=== PATIENT | female | born 1975 | race American Indian/Alaskan Native ===

== ENCOUNTER 2018-05-18 14:23 | Inpatient (IN) | payer BC, OTHER ==
[2018-05-18] MEDS ORDERED: NACL 0.9% 1000 ML IV ONE (14:33)
[2018-05-18] MEDS ORDERED: IBUPROFEN PO ONE (14:34)
--- NOTE | 2018-05-18 14:37 | Emergency Department Report ---
Blank Doc - Documentation Documentation: This is a 42-year-old female that presents with abscess to buttock area. Febrile with tachycardia in triage. Code sepsis initiated. This initial assessment/diagnostic orders/clinical plan/treatment(s) is/are subject to change based on patient's health status, clinical progression and re- assessment by fellow clinical providers in the ED. Further treatment and workup at subsequent clinical providers discretion. Patient/guardians urged not to elope from the ED as their condition may be serious if not clinically assessed and managed. Initial orders include: 1- Patient sent to MAIN for further evaluation and treatment 2- labs 3- Fluids 4- Motrin
[2018-05-18 15:05] LABS: Basophils # (Auto) 0.1 K/mm3 (0.0-0.1); Basophils % (Auto) 0.5 % (0.0-1.8); Eosinophils # (Auto) 0.1 K/mm3 (0.0-0.4); Eosinophils % (Auto) 0.6 % (0.0-4.3); Hematocrit 37.8 % (30.3-42.9); Hemoglobin 12.7 gm/dl (10.1-14.3); Mean Corpuscular HGB Conc 34 % (30-34); Mean Corpuscular Volume 94 fl (79-97); Monocytes # (Auto) 1.1 K/mm3 (0.0-0.8); Monocytes % (Auto) 6.8 % (0.0-7.3); Platelet Count 324 K/mm3 (140-440); Red Blood Count 4.03 M/mm3 (3.65-5.03)
[2018-05-18 15:35] LABS: Alanine Aminotransferase 17 units/L (7-56); Albumin 3.3 g/dL (3.9-5); BUN/Creatinine Ratio 13; Blood Urea Nitrogen 8 mg/dL (7-17); Hemolysis Index 2
[2018-05-18] MEDS ORDERED: DILAUDID IV ONE ×2 (16:02→19:17)
[2018-05-18] MEDS ORDERED: ZOFRAN IV ONE (16:02)
[2018-05-18] MEDS ORDERED: VANCOMYCIN 2,000 MG in NACL 0.9% 500 ML 500 ML IV ONE (16:06)
[2018-05-18] MEDS ORDERED: TYLENOL PO ONE (16:18)
--- NOTE | 2018-05-18 16:28 | Emergency Department Report ---
HPI - General Chief Complaint: Skin/Abscess/Foreign Body Time Seen by Provider: 05/18/18 14:32 - HPI HPI: Room 26 The patient is a 42-year-old female presenting with a chief complaint of right buttocks pain and menorrhagia. The patient states for the past week has noticed pain and swelling along the gluteal cleft of her right buttocks. The patient st ates she's had abscesses in the past but this is worse than previous episodes. Patient states last menstrual cycle ended approximately 2 months ago. The patient states she did not have any vaginal bleeding since then until approximately 5 days ago. Patient states she is having heavy vaginal bleeding going through approximately 8 pads per day. Patient complains of low back pain and lower abdominal cramping as well. Location: [See above] Duration: [See above] Quality: Pain Severity:12/18 Modifying factors: [see above] Context: [see above] Mode of transportation: [not driving] ED Past Medical Hx - Past Medical History Hx Hypertension: Yes Hx Diabetes: Yes Additional medical history: HPV - Surgical History Additional Surgical History: 14 years old given trachea, 3, 3 chest tubes, abdominal debridement - Family History Family history: no significant - Social History Smoking Status: Current Every Day Smoker Substance Use Type: None - Medications Home Medications: Home Medications Medication Instructions Recorded Confirmed Last Taken Type metFORMIN 500 mg PO BID 01/30/16 01/30/16 Unknown History ED Review of Systems ROS: Stated complaint: BOIL/BLEEDING Other details as noted in HPI Constitutional: fever Eyes: denies: eye pain ENT: denies: throat pain Respiratory: no symptoms reported Cardiovascular: denies: chest pain Endocrine: no symptoms reported Gastrointestinal: abdominal pain Genitourinary: abnormal menses Musculoskeletal: back pain Skin: lesions Neurological: denies: headache Physical Exam - Physical Exam Vital Signs: Vital Signs 05/18/18 05/18/18 14:28 15:15 Temperature 100.2 F H Pulse Rate 128 H 108 H Respiratory 20 16 Rate Blood Pressure 229/143 Blood Pressure 148/60 [Left] O2 Sat by Pulse 99 100 Oximetry Physical Exam: GENERAL: The patient is well-developed well-nourished female lying in the left lateral decubitus position not appearing to be in acute distress. [] HEENT: Normocephalic. Atraumatic. Extraocular motions are intact. Patient has moist mucous membranes. NECK: Supple. Trachea midline CHEST/LUNGS: Clear to auscultation. There is no respiratory distress noted. HEART/CARDIOVASCULAR: Regular. There is tachycardia. There is no gallop rub or murmur. ABDOMEN: Abdomen is soft, nontender. Patient has normal bowel sounds. There is no abdominal distention. SKIN: There is a large region of induration medial aspect of the right buttocks is very tender to palpation. No drainage seen. There is no diaphoresis. NEURO: The patient is awake, alert, and oriented. The patient is cooperative. The patient has normal speech MUSCULOSKELETAL: There is no evidence of acute injury. ED Course Vital Signs 05/18/18 05/18/18 14:28 15:15 Temperature 100.2 F H Pulse Rate 128 H 108 H Respiratory 20 16 Rate Blood Pressure 229/143 Blood Pressure 148/60 [Left] O2 Sat by Pulse 99 100 Oximetry ED Medical Decision Making - Lab Data Result diagrams: 05/18/18 14:44 05/18/18 14:44 Laboratory Tests 05/18/18 05/18/18 05/18/18 14:44 14:44 14:44 WBC 16.9 H RBC 4.03 Hgb 12.7 Hct 37.8 MCV 94 MCH 32 MCHC 34 RDW 13.0 L Plt Count 324 Lymph % (Auto) 18.0 [place] % (Auto) 6.8 Eos % (Auto) 0.6 Baso % (Auto) 0.5 Lymph # 3.0 [place] # 1.1 H Eos # 0.1 Baso # 0.1 Seg Neutrophils % 74.1 H Seg Neutrophils # 12.5 H VBG pH Sodium 134 L Potassium 3.9 Chloride 97.3 L Carbon Dioxide 20 L Anion Gap 21 BUN 8 Creatinine 0.6 L Estimated GFR > 60 BUN/Creatinine Ratio 13 Glucose 337 H Lactic Acid 2.70 H* Calcium 9.0 Total Bilirubin 0.90 AST 16 ALT 17 Alkaline Phosphatase 90 Total Protein 8.1 Albumin 3.3 L Albumin/Globulin Ratio 0.7 HCG, Qual Urine Color Urine Turbidity Urine pH Ur Specific [place] Urine Protein Urine Glucose (UA) Urine Ketones Urine Blood Urine Nitrite Urine Bilirubin Urine Urobilinogen Ur Leukocyte Esterase Urine WBC (Auto) Urine RBC (Auto) 05/18/18 05/18/18 05/18/18 14:44 15:14 15:45 WBC RBC Hgb Hct MCV MCH MCHC RDW Plt Count Lymph % (Auto) [place] % (Auto) Eos % (Auto) Baso % (Auto) Lymph # [place] # Eos # Baso # Seg Neutrophils % Seg Neutrophils # VBG pH 7.460 H Sodium Potassium Chloride Carbon Dioxide Anion Gap BUN Creatinine Estimated GFR BUN/Creatinine Ratio Glucose Lactic Acid Calcium Total Bilirubin AST ALT Alkaline Phosphatase Total Protein Albumin Albumin/Globulin Ratio HCG, Qual Negative Urine Color Red Urine Turbidity Slightly cloudy Urine pH 6.0 Ur Specific [place] 1.007 Urine Protein 100 mg/dl Urine Glucose (UA) >500 Urine Ketones Trace Urine Blood Large A Urine Nitrite Negative Urine Bilirubin Negative Urine Urobilinogen < 2.0 Ur Leukocyte Esterase Negative Urine WBC (Auto) > 182.0 H Urine RBC (Auto) > 182.0 - Radiology Data Radiology results: pending (pelvic ultrasound), report reviewed (CT abdomen and pelvis), image reviewed (CT abdomen and pelvis) [facility] [address] [id number] Cat Scan Report Signed Patient: JOSÉ KU MR#: [id number] : 1975 Acct:[id number] Age/Sex: 42 / F ADM Date: 05/18/18 Loc: ED Attending Dr: Ordering Physician: LUCY THAYER MD Date of Service: 05/18/18 Procedure(s): CT pelvis w con Accession Number(s): [id number] cc: LUCY THAYER MD PROCEDURE: CT pelvis with contrast. TECHNIQUE: Computerized axial tomography of the pelvis was performed following the IV injection of iodinated nonionic contrast. CT DOSE LENGTH PRODUCT: 1012.02 mGycm HISTORY: right buttocks abscess/pain COMPARISONS: None. FINDINGS: There are 2 moderately large umbilical hernias containing abdominal fat. The gastrointestinal tract is unremarkable as far as visualized. The bladder and uterus appear normal. The regional skeleton appears intact. The scans do not quite completely extend inferiorly through the gluteal fold. On the last slice of the study there is some slightly increased attenuation within the subcutaneous fat of the medial right buttock. This suggests possible inflammation. There is no visible fluid collection. Clinical correlation is necessary to make certain that the area of interest was completely scanned. IMPRESSION: Possible subcutaneous inflammation involving the medial aspect of the right buttock as discussed above. 2 umbilical hernias containing fat. This document is electronically signed by Andres Espinoza MD., May 18 2018 06:15:22 PM ET Transcribed By: MRM Dictated By: ANDRES ESPINOZA MD Electronically Authenticated By: ANDRES ESPINOZA MD Signed Date/Time: 05/18/181816 DD/ 23 TD/TT: 05/18/181724 - Differential Diagnosis buttocks abscess, sepsis, menorrhagia Critical care attestation.: If time is entered above; I have spent that time in minutes in the direct care of this critically ill patient, excluding procedure time. ED Disposition Clinical Impression: Sepsis, UTI (urinary tract infection), Menorrhagia, Cellulitis of right buttock Disposition: [id number] OP ADMIT IP TO THIS HOSP Is pt being admited?: Yes Does the pt Need Aspirin: No Condition: Fair Referrals: BRIGID SILVESTREMOLT MD ANGEL [Primary Care Provider] - 3-5 Days Time of Disposition: 18:57 (Hospitalist paged (Dr Zarate))
[2018-05-18 16:40] LABS: Color,Urine Red (Yellow); RBC,Urine > 182.0 /HPF (0.0-6.0); WBC,Urine > 182.0 /HPF (0.0-6.0)
[2018-05-18 16:41] LABS: Bilirubin,Urine Negative (Negative); Blood,Urine Large (Negative); Urobilinogen,Urine < 2.0 mg/dL (<2.0)
[2018-05-18] MEDS ORDERED: LEVAQUIN 750MG/150ML 750 MG/150 ML BAG IV ONE (16:56)
--- NOTE | 2018-05-18 18:17 | Cat Scan Report ---
PROCEDURE: CT pelvis with contrast. TECHNIQUE: Computerized axial tomography of the pelvis was performed following the IV injection of i odinated nonionic contrast. CT DOSE LENGTH PRODUCT: 1012.02 mGycm HISTORY: right buttocks abscess/pain COMPARISONS: None. FINDINGS: There are 2 moderately large umbilical hernias containing abdominal fat. The gastrointestinal tract i s unremarkable as far as visualized. The bladder and uterus appear normal. The regional skeleton appe ars intact. The scans do not quite completely extend inferiorly through the gluteal fold. On the last slice of the study there is some slightly increased attenuation within the subcutaneous fat of the m edial right buttock. This suggests possible inflammation. There is no visible fluid collection. Clini rigo correlation is necessary to make certain that the area of interest was completely scanned. IMPRESSION: Possible subcutaneous inflammation involving the medial aspect of the right buttock as d iscussed above. 2 umbilical hernias containing fat. This document is electronically signed by Andres Loya MD., May 18 2018 06:15:22 PM ET
[2018-05-18] MEDS ORDERED: TYLENOL ONE (18:26)
--- NOTE | 2018-05-18 19:16 | History and Physical Report ---
History of Present Illness Chief complaint: I bleeding a lot, and my butt hurts History of present illness: 42 YO Female with MO, HTN, DM, HPV, Menorrhagia, Nicotine Dependence presents to ED for evaluation. Pt states that she has experienced pain and swelling in her right buttock over the past week with progressively worsening symptoms over the same time frame. Pt states that her pain is 10/10, constant, worse with pressure and palpation. Pt also reports heavy vaginal bleeding over the past 5 days. Pt stats that she is using approximately 8 pads per day, which has been the case with her menses over the past several months. Pt transported to [facility] via private vehicle. Pt seen and evaluated in ED and found to have UTI, Right Buttock Cellulitis, SIRS and Acidosis. Pt admitted to medical floor and treated with IV antibiotic therapy. Pt denies fever, chills, CP, Palpitations, NVD, Trauma, BRBPR, or recent ill contacts. Past History Past Medical History: diabetes, hypertension, other (MO, Menorrhagia) Past Surgical History: , bowel surgery Social history: single Family history: diabetes, hypertension Medications and Allergies Allergies Allergy/AdvReac Type Severity Reaction Status Date / Time Penicillins Allergy Unknown Verified 05/18/18 14:57 Home Medications Medication Instructions Recorded Confirmed Last Taken Type metFORMIN 500 mg PO BID 01/30/16 01/30/16 Unknown History Review of Systems Constitutional: no weight loss, no weight gain, no fever, no chills Ears, nose, mouth and throat: no ear pain, no ear discharge, no tinnitis, no decreased hearing, no nose pain Breasts: no change in shape, no swelling, no mass Cardiovascular: no chest pain, no orthopnea, no palpitations, no rapid/irregular heart beat, no edema Respiratory: no cough, no cough with sputum, no excessive sputum, no hemoptysis, no shortness of breath Gastrointestinal: no nausea, no vomiting, no diarrhea, no constipation Genitourinary Female: menorrhagia, abnormal vaginal bleeding, no pelvic pain, no flank pain, no vaginal discharge, no vaginal odor, no genital sores Menstruation: currently menstrual Rectal: pain, no incontinence, no bleeding Musculoskeletal: no neck stiffness, no neck pain, no shooting arm pain, no arm numbness/tingling, no low back pain Integumentary: redness, other (right buttock) Neurological: no head injury, no transient paralysis, no paralysis, no weakness, no seizures Psychiatric: no anxiety, no memory loss, no change in sleep habits, no sleep disturbances, no insomnia, no hypersomnia, no change in appetite Endocrine: no cold intolerance, no heat intolerance, no polyphagia, no excessive thirst, no polydipsia, no nocturia Hematologic/Lymphatic: no easy bruising, no easy bleeding, no lymphadenopathy, no lymphedema Allergic/Immunologic: no urticaria, no allergic rhinitis, no persistent infections, no anaphylaxis, no angioedema Exam - Constitutional Vitals: Temp Pulse Resp BP Pulse Ox 100.2 F H 108 H 16 148/60 100 05/18/18 14:28 05/18/18 15:15 05/18/18 15:15 05/18/18 15:15 05/18/18 15:15 General appearance: Present: mild distress, obese, malodorous - EENT Eyes: Present: PERRL ENT: hearing intact, clear oral mucosa - Neck Neck: Present: supple, normal ROM - Respiratory Respiratory effort: normal Respiratory: bilateral: CTA - Cardiovascular Heart Sounds: Present: S1 & S2. Absent: rub, click - Extremities Extremities: pulses symmetrical, No edema Peripheral Pulses: within normal limits - Abdominal General gastrointestinal: Present: soft, non-tender, non-distended, normal bowel sounds Female genitourinary: Present: normal - Rectal Rectal Exam: normal exam-external/orifice - Integumentary Integumentary: Present: clear, erythema - Musculoskeletal Musculoskeletal: gait normal, strength equal bilaterally - Psychiatric Psychiatric: appropriate mood/affect, intact judgment & insight - Neurologic Neurologic: CNII-XII intact, moves all extremities Results - Labs CBC & Chem 7: 05/18/18 14:44 05/18/18 14:44 Labs: Abnormal lab results 05/18/18 05/18/18 05/18/18 Range/Units 14:44 14:44 14:44 WBC 16.9 H (4.5-11.0) K/mm3 RDW 13.0 L (13.2-15.2) % [place] # 1.1 H (0.0-0.8) K/mm3 Seg Neutrophils % 74.1 H (40.0-70.0) % Seg Neutrophils # 12.5 H (1.8-7.7) K/mm3 VBG pH (7.320-7.420) Sodium 134 L (137-145) mmol/L Chloride 97.3 L (98-107) mmol/L Carbon Dioxide 20 L (22-30) mmol/L Creatinine 0.6 L (0.7-1.2) mg/dL Glucose 337 H (65-100) mg/dL Lactic Acid 2.70 H* (0.7-2.0) mmol/L Albumin 3.3 L (3.9-5) g/dL Urine Blood (Negative) Urine WBC (Auto) (0.0-6.0) /HPF 05/18/18 05/18/18 Range/Units 14:44 15:14 WBC (4.5-11.0) K/mm3 RDW (13.2-15.2) % [place] # (0.0-0.8) K/mm3 Seg Neutrophils % (40.0-70.0) % Seg Neutrophils # (1.8-7.7) K/mm3 VBG pH 7.460 H (7.320-7.420) Sodium (137-145) mmol/L Chloride (98-107) mmol/L Carbon Dioxide (22-30) mmol/L Creatinine (0.7-1.2) mg/dL Glucose (65-100) mg/dL Lactic Acid (0.7-2.0) mmol/L Albumin (3.9-5) g/dL Urine Blood Large A (Negative) Urine WBC (Auto) > 182.0 H (0.0-6.0) /HPF Assessment and Plan - Patient Problems (1) SIRS (systemic inflammatory response syndrome) Current Visit: Yes Status: Acute Plan to address problem: IV antibiotic therapy, IVF resuscitation therapy, serial lactic acid level, monitor uop q shift, urinalysis, chest x ray, blood cultures. (2) Cellulitis of right buttock Current Visit: Yes Status: Acute Plan to address problem: IV antibiotic therapy, CT Pelvis, pain control, wound care consult (3) Menorrhagia Current Visit: Yes Status: Acute Qualifiers: Menorrahagia type: with regular cycle Qualified Code(s): N92.0 - Excessive and frequent menstruation with regular cycle Plan to address problem: CBC, PIPE FOREMAN F/U care, Pelvic Ultrasound (4) UTI (urinary tract infection) Current Visit: Yes Status: Acute Qualifiers: Encounter type: initial encounter Plan to address problem: IV antibiotic therapy, (5) DVT prophylaxis Current Visit: Yes Status: Acute Plan to address problem: Lovenox, prophylactic
[2018-05-18] MEDS ORDERED: SODIUM CHLORIDE FLUSH SYRINGE 10 ML IV PRN (19:17)
[2018-05-18] MEDS ORDERED: REGLAN IV ONE (19:23)
--- NOTE | 2018-05-18 19:26 | Ultrasound Report ---
PROCEDURE: Transabdominal pelvic ultrasound. TECHNIQUE: Real-time transabdominal sonography in multiple planes of pelvis was performed with image documentation. HISTORY: menorrhagia COMPARISONS: None. FINDINGS: Image quality is limited because of the patient's obesity and the lack of a completely distended blad sage. The uterus measures 11.1 cm x 6.5 cm x 5.1 cm. The myometrium is grossly normal. The endometrial echo complex is not well visualized. Neither ovary is identified. There is no fluid in the cul-de-sa c. IMPRESSION: Very limited study. Grossly normal uterus. This document is electronically signed by Andres Loya MD., May 18 2018 07:24:05 PM ET
--- NOTE | 2018-05-18 19:30 | Ultrasound Report ---
PROCEDURE: Transvaginal pelvic ultrasound. TECHNIQUE: Real-time transvaginal sonography in multiple planes of the pelvis was performed with roxy ge documentation. HISTORY: menorrhagia COMPARISONS: None. FINDINGS: The technologist reports that the study was difficult because the patient was in extreme pain and bec ause of the patient's body habitus. Neither ovary is identified. There is no fluid in the cul-de-sac. The uterus is suboptimally visualized. There may be thickening of the endometrium. IMPRESSION: Possible endometrial thickening. Very limited study. This document is electronically signed by Andres Loya MD., May 18 2018 07:28:01 PM ET
[2018-05-18] MEDS ORDERED: REGLAN ONE (20:09)
[2018-05-18] MEDS ORDERED: DILAUDID ONE (20:10)
[2018-05-18] MEDS ORDERED: D50W (25GM) Syringe IV PRN (20:17)
[2018-05-18] MEDS ORDERED: APRESOLINE IV PRN ×2 (20:38→22:00)
[2018-05-18] MEDS: APRESOLINE IV PRN (22:31)
[2018-05-18] MEDS: ZOFRAN IV PRN (22:31)
[2018-05-18] MEDS: LOVENOX SUB-Q SCH (22:31)
[2018-05-18] MEDS: PEPCID PO SCH (22:32)
[2018-05-18] MEDS: HumaLOG SUB-Q SCH ×2 (22:32→23:56)
[2018-05-18] MEDS: SODIUM CHLORIDE FLUSH SYRINGE 10 ML IV SCH (22:32)
[2018-05-19] MEDS: NORCO 5/325 PO PRN ×2 (03:49→10:28)
[2018-05-19] MEDS: APRESOLINE IV PRN (04:05)
[2018-05-19] MEDS: HumaLOG SUB-Q SCH ×3 (07:09→18:28)
[2018-05-19] MEDS: PEPCID PO SCH ×2 (10:30→21:58)
[2018-05-19] MEDS: SODIUM CHLORIDE FLUSH SYRINGE 10 ML IV SCH ×2 (10:30→23:00)
[2018-05-19] MEDS: ZOFRAN IV PRN (12:42)
--- NOTE | 2018-05-19 15:50 | Progress Note ---
Assessment and Plan 42 YO Female with MO, HTN, DM, HPV, Menorrhagia, Nicotine Dependence presents to ED for evaluation. Pt states that she has experienced pain and swelling in her right buttock over the past week with progressively worsening symptoms over the same time frame. Pt states that her pain is 10/10, constant, worse with pressure and palpation. Pt also reports heavy vaginal bleeding over the past 5 days. Pt stats that she is using approximately 8 pads per day, which has been the case with her menses over the past several months. Pt transported to [facility] via private vehicle. Pt seen and evaluated in ED and found to have UTI, Right Buttock Cellulitis, SIRS and Acidosis. Pt admitted to medical floor and treated with IV antibiotic therapy. Pt denies fever, chills, CP, Palpitations, NVD, Trauma, BRBPR, or recent ill contacts. - SIRS (systemic inflammatory response syndrome) Current Visit: Yes Status: Acute Plan to address problem: IV antibiotic therapy, IVF resuscitation therapy, serial lactic acid level, monitor uop q shift, urinalysis, chest x ray, blood cultures. - Cellulitis of right buttock Current Visit: Yes Status: Acute Plan to address problem: IV antibiotic therapy, CT Pelvis, pain control, wound care consult - Menorrhagia Current Visit: Yes Status: Acute Qualifiers: Menorrahagia type: with regular cycle Qualified Code(s): N92.0 - Excessive and frequent menstruation with regular cycle Plan to address problem: CBC, STAFFING ANALYST F/U care, Pelvic Ultrasound - UTI (urinary tract infection) Current Visit: Yes Status: Acute Qualifiers: Encounter type: initial encounter Plan to address problem: IV antibiotic therapy, - DVT prophylaxis Current Visit: Yes Status: Acute Plan to address problem: Lovenox, prophylactic Subjective Date of service: 05/19/18 Principal diagnosis: Cellulitis right buttock, SIRS,T2DM, Menorrhagia Interval history: :Pt seen and examined. review labs. Denies any fever chest pain or SOB. Want [place] papers faxed and filled Objective - Constitutional Vitals: Vital Signs - 12hr 05/19/18 05/19/18 05/19/18 04:01 05:39 09:30 Temperature 98.7 F 99.2 F Pulse Rate 111 H 110 H Respiratory 18 20 Rate Blood Pressure 184/93 142/75 O2 Sat by Pulse 99 96 99 Oximetry 05/19/18 05/19/18 10:28 11:26 Temperature 98.5 F Pulse Rate 109 H Respiratory 20 22 Rate Blood Pressure 145/61 O2 Sat by Pulse 96 Oximetry General appearance: Present: no acute distress, well-nourished, obese - EENT Eyes: PERRL, EOM intact Ears: bilateral: normal - Neck Neck: supple, normal ROM - Respiratory Respiratory effort: normal Respiratory: bilateral: CTA - Breasts Breasts: normal - Cardiovascular Rhythm: regular Heart Sounds: Present: S1 & S2. Absent: gallop, rub Extremities: pulses intact, No edema, normal color, Full ROM - Gastrointestinal General gastrointestinal: Present: soft, non-tender, non-distended, normal bowel sounds - Integumentary Integumentary: clear, warm, dry - Musculoskeletal Musculoskeletal: 1, strength equal bilaterally - Neurologic Neurologic: moves all extremities - Psychiatric Psychiatric: memory intact, appropriate mood/affect, intact judgment & insight - Labs CBC & Chem 7: 05/18/18 14:44 05/18/18 14:44 Labs: Abnormal lab results 05/18/18 05/18/18 05/18/18 Range/Units 15:14 19:38 22:16 POC Glucose 300 H 296 H (70-105) Urine Blood Large A (Negative) Urine WBC (Auto) > 182.0 H (0.0-6.0) /HPF
[2018-05-19] MEDS: TYLENOL PO PRN (18:28)
[2018-05-19] MEDS: LOVENOX SUB-Q SCH (21:57)
[2018-05-20] MEDS: HumaLOG SUB-Q SCH ×3 (00:49→12:03)
[2018-05-20] MEDS: TYLENOL PO PRN (01:01)
[2018-05-20] MEDS ORDERED: IBUPROFEN PO ONE (02:15)
[2018-05-20] MEDS: FLAGYL 500 MG/100 ML 500 MG/100 ML BAG IV SCH ×2 (02:46→09:17)
[2018-05-20 07:56] LABS: Basophils # (Auto) 0.1 K/mm3 (0.0-0.1); Basophils % (Auto) 0.6 % (0.0-1.8); Eosinophils # (Auto) 0.2 K/mm3 (0.0-0.4); Eosinophils % (Auto) 1.8 % (0.0-4.3); Hematocrit 31.7 % (30.3-42.9); Hemoglobin 10.8 gm/dl (10.1-14.3); Lymphocytes # (Auto) 2.6 K/mm3 (1.2-5.4); Mean Corpuscular HGB Conc 34 % (30-34); Mean Corpuscular Volume 93 fl (79-97); Monocytes # (Auto) 0.9 K/mm3 (0.0-0.8); Monocytes % (Auto) 8.3 % (0.0-7.3); Platelet Count 305 K/mm3 (140-440); Red Blood Count 3.41 M/mm3 (3.65-5.03); Red Cell Distribution Width 12.8 % (13.2-15.2)
[2018-05-20 08:21] LABS: Alanine Aminotransferase 8 units/L (7-56); BUN/Creatinine Ratio 15; Blood Urea Nitrogen 9 mg/dL (7-17); Calcium 8.5 mg/dL (8.4-10.2); Hemolysis Index 5
[2018-05-20] MEDS: IBUPROFEN PO PRN ×2 (09:08→22:48)
--- NOTE | 2018-05-20 09:49 | Consultation ---
History of Present Illness Consult date: 05/20/18 Chief complaint: buttock pain - History of present illness History of present illness: 42 yo F with hx of HTN, DM presented to the ER with c/o heavy menses and left gluteal pain for the last 2 days. She states she noticed the area in her left gluteal cleft becoming hardened and very tender to the touch. She has a history of abscess before but in a different location of the gluteal cleft. She states she has noticed some drainage today that is foul smelling. She also c/o headache and nausea. Overall she does not feel well. She has been having "pain in her uterus" and heavy menses as well. No f/c, cp, sob. Past History Past Medical History: diabetes, hypertension, other (MO, Menorrhagia) Past Surgical History: , bowel surgery Social history: single Family history: diabetes, hypertension Medications and Allergies Allergies Allergy/AdvReac Type Severity Reaction Status Date / Time egg Allergy Nausea Verified 05/19/18 09:16 Penicillins Allergy Nausea Verified 05/19/18 09:16 Home Medications Medication Instructions Recorded Confirmed Last Taken Type metFORMIN 500 mg PO BID 01/30/16 05/18/18 Unknown History Active Meds: Active Medications Acetaminophen (Tylenol) 650 mg PO Q4H PRN PRN Reason: Pain MILD(1-3)/Fever >100.5/ROGERS Last Admin: 05/20/18 01:01 Dose: 650 mg Documented by: Acetaminophen/Hydrocodone Bitart ([place] 5/325) 1 each PO Q6H PRN PRN Reason: Pain, Moderate (4-6) Last Admin: 05/19/18 10:28 Dose: 1 each Documented by: Dextrose (D50w (25gm) Syringe) 50 ml IV PRN PRN PRN Reason: Hypoglycemia Enoxaparin Sodium (Lovenox) 40 mg SUB-Q QDAY@2200 [facility] Last Admin: 05/19/18 21:57 Dose: 40 mg Documented by: Famotidine (Pepcid) 20 mg PO BID [facility] Last Admin: 05/19/18 21:58 Dose: 20 mg Documented by: Hydralazine HCl (Apresoline) 10 mg IV Q8H PRN PRN Reason: Hypertension Last Admin: 05/20/18 07:13 Dose: 10 mg Documented by: Levofloxacin/Dextrose (Levaquin 750mg/150ml) 750 mg in 150 mls @ 100 mls/hr IV Q24HR KARYN; Protocol Metronidazole (Flagyl 500 Mg/100 Ml) 500 mg in 100 mls @ 100 mls/hr IV Q8H KARYN; Protocol Last Admin: 05/20/18 09:17 Dose: 100 mls/hr Documented by: Ibuprofen (Motrin) 600 mg PO Q8H PRN PRN Reason: Pain, Mild (1-3) Last Admin: 05/20/18 09:08 Dose: 600 mg Documented by: Insulin Human Lispro (Humalog) 0 unit SUB-Q Q6HR KARYN; Protocol Last Admin: 05/20/18 06:40 Dose: 3 unit Documented by: Ondansetron HCl (Zofran) 4 mg IV Q8H PRN PRN Reason: Nausea And Vomiting Last Admin: 05/19/18 12:42 Dose: 4 mg Documented by: Sodium Chloride (Sodium Chloride Flush Syringe 10 Ml) 10 ml IV BID KARYN Last Admin: 05/19/18 23:00 Dose: 10 ml Documented by: Sodium Chloride (Sodium Chloride Flush Syringe 10 Ml) 10 ml IV PRN PRN PRN Reason: LINE FLUSH Review of Systems All systems: negative (10 pt ROS performed and negative except for that listed in HPI) Exam Vital Signs Temp Pulse Resp BP Pulse Ox 100.2 F H 128 H 20 229/143 99 05/18/18 14:28 05/18/18 14:28 05/18/18 14:28 05/18/18 14:28 05/18/18 14:28 Narrative exam: Gen: AAOx3 NAD ENT: no scleral icterus or conjunctival pallor CV: S1, S2+ Resp: even and unlabored Abd: soft Ext: no c/c/e Gluteal: L intergluteal region is very TTP and indurated. There is drainage of purulent fluid through a small opening. Results - Labs 05/20/18 07:39 05/20/18 07:39 Abnormal lab results 05/20/18 05/20/18 Range/Units 07:39 07:39 RBC 3.41 L (3.65-5.03) M/mm3 RDW 12.8 L (13.2-15.2) % [place] % (Auto) 8.3 H (0.0-7.3) % [place] # 0.9 H (0.0-0.8) K/mm3 Potassium 3.5 L (3.6-5.0) mmol/L Creatinine 0.6 L (0.7-1.2) mg/dL Glucose 299 H (65-100) mg/dL Albumin 3.0 L (3.9-5) g/dL Diabetes panel 05/20/18 Range/Units 07:39 Sodium 138 (137-145) mmol/L Potassium 3.5 L (3.6-5.0) mmol/L Chloride 103.3 (98-107) mmol/L Carbon Dioxide 25 (22-30) mmol/L BUN 9 (7-17) mg/dL Creatinine 0.6 L (0.7-1.2) mg/dL Glucose 299 H (65-100) mg/dL Calcium 8.5 (8.4-10.2) mg/dL AST 11 (5-40) units/L ALT 8 (7-56) units/L Alkaline Phosphatase 80 (35-129) units/L Total Protein 7.1 (6.3-8.2) g/dL Albumin 3.0 L (3.9-5) g/dL Calcium panel 05/20/18 Range/Units 07:39 Calcium 8.5 (8.4-10.2) mg/dL Albumin 3.0 L (3.9-5) g/dL Pituitary panel 05/20/18 Range/Units 07:39 Sodium 138 (137-145) mmol/L Potassium 3.5 L (3.6-5.0) mmol/L Chloride 103.3 (98-107) mmol/L Carbon Dioxide 25 (22-30) mmol/L BUN 9 (7-17) mg/dL Creatinine 0.6 L (0.7-1.2) mg/dL Glucose 299 H (65-100) mg/dL Calcium 8.5 (8.4-10.2) mg/dL Adrenal panel 05/20/18 Range/Units 07:39 Sodium 138 (137-145) mmol/L Potassium 3.5 L (3.6-5.0) mmol/L Chloride 103.3 (98-107) mmol/L Carbon Dioxide 25 (22-30) mmol/L BUN 9 (7-17) mg/dL Creatinine 0.6 L (0.7-1.2) mg/dL Glucose 299 H (65-100) mg/dL Calcium 8.5 (8.4-10.2) mg/dL Total Bilirubin 0.40 (0.1-1.2) mg/dL AST 11 (5-40) units/L ALT 8 (7-56) units/L Alkaline Phosphatase 80 (35-129) units/L Total Protein 7.1 (6.3-8.2) g/dL Albumin 3.0 L (3.9-5) g/dL - Imaging CT scan - pelvis: report reviewed, image reviewed Assessment and Plan 42 yo F with gluteal abscess Plan; 1. NPO 2. Pt will not tolerate bedside incision and drainage. I have added her to the OR schedule for today to undergo incision and drainage of gluteal abscess. I explained this to the patient and all questions answered. 3. c/w abx 4. strict glucose control 5. will obtain cultures in OR 6. will have television technician follow up with patient tomorrow 7. prn pain control Thank you, please call with questions
[2018-05-20] MEDS ORDERED: APRESOLINE IV PRN (10:23)
[2018-05-20] MEDS: PEPCID PO SCH ×2 (11:36→22:48)
[2018-05-20] MEDS: ZESTRIL PO SCH (11:39)
[2018-05-20] MEDS: LEVAQUIN 750MG/150ML 750 MG/150 ML BAG IV SCH (11:40)
[2018-05-20] MEDS ORDERED: XYLOCAINE MPF 2% ONE (12:14)
[2018-05-20] MEDS ORDERED: DILAUDID ONE (12:15)
[2018-05-20] MEDS ORDERED: VERSED ONE ×2 (12:15→12:29)
[2018-05-20] MEDS ORDERED: DIPRIVAN 10 MG/ML IV ONE ×2 (12:15→15:08)
--- NOTE | 2018-05-20 12:16 | Consultation ---
History of Present Illness History of present illness: 42yo with a long-standing history of abnormal uterine bleeding since 2011. She reports blood pouring per vagina and wearing 4 pads at one time. She has not saught help for AUB due to insurance issues. Her US was unable to assess the endometrium due to body habitus. Medications and Allergies Allergies Allergy/AdvReac Type Severity Reaction Status Date / Time egg Allergy Nausea Verified 05/19/18 09:16 Penicillins Allergy Nausea Verified 05/19/18 09:16 Home Medications Medication Instructions Recorded Confirmed Last Taken Type Ferrous Sulfate [Feosol 325 MG tab] 325 mg PO BID 30 Days #60 tablet 05/20/18 Unknown Rx Ibuprofen 800 mg PO Q6H PRN 10 Days #20 05/20/18 Unknown Rx tablet MDD 3200mg Megestrol [Megace] 40 mg PO DAILY 5 Days #5 tablet 05/20/18 Unknown Rx HYDROcodone/APAP 5-325 [[place] 1 each PO Q6H PRN #14 tablet 05/22/18 Unknown Rx 5-325 mg TAB] Insulin Glargine [Lantus VIAL] 16 units SUB-Q QHS 30 Days units 05/22/18 Unknown Rx Lisinopril [Zestril TAB] 40 mg PO QDAY #30 tablet 05/22/18 Unknown Rx hydroCHLOROthiazide [HCTZ] 25 mg PO QDAY #30 tablet 05/22/18 Unknown Rx levoFLOXacin [Levaquin] 750 mg PO QDAY #7 tablet 05/22/18 Unknown Rx metFORMIN 500 mg PO DAILY #30 05/22/18 Unknown Rx metroNIDAZOLE [Flagyl] 500 mg PO Q8HR #21 tablet 05/22/18 Unknown Rx Active Meds: Active Medications Acetaminophen (Tylenol) 650 mg PO Q4H PRN PRN Reason: Pain MILD(1-3)/Fever >100.5/ROGERS Last Admin: 05/20/18 01:01 Dose: 650 mg Documented by: Acetaminophen/Hydrocodone Bitart ([place] 5/325) 1 each PO Q6H PRN PRN Reason: Pain, Moderate (4-6) Last Admin: 05/19/18 10:28 Dose: 1 each Documented by: Dextrose (D50w (25gm) Syringe) 50 ml IV PRN PRN PRN Reason: Hypoglycemia Enoxaparin Sodium (Lovenox) 40 mg SUB-Q QDAY@2200 [facility] Last Admin: 05/19/18 21:57 Dose: 40 mg Documented by: Famotidine (Pepcid) 20 mg PO BID [facility] Last Admin: 05/20/18 11:36 Dose: 20 mg Documented by: Hydralazine HCl (Apresoline) 10 mg IV Q4HR PRN PRN Reason: Hypertension Levofloxacin/Dextrose (Levaquin 750mg/150ml) 750 mg in 150 mls @ 100 mls/hr IV Q24HR [facility]; Protocol Last Admin: 05/20/18 11:40 Dose: 100 mls/hr Documented by: Metronidazole (Flagyl 500 Mg/100 Ml) 500 mg in 100 mls @ 100 mls/hr IV Q8H [facility]; Protocol Last Admin: 05/20/18 09:17 Dose: 100 mls/hr Documented by: Ibuprofen (Motrin) 600 mg PO Q8H PRN PRN Reason: Pain, Mild (1-3) Last Admin: 05/20/18 09:08 Dose: 600 mg Documented by: Insulin Glargine (Lantus) 12 units SUB-Q QHS [facility] Insulin Human Lispro (Humalog) 0 unit SUB-Q Q6HR [facility]; Protocol Last Admin: 05/20/18 12:03 Dose: 3 unit Documented by: Lisinopril (Zestril) 40 mg PO QDAY [facility] Last Admin: 05/20/18 11:39 Dose: 40 mg Documented by: Ondansetron HCl (Zofran) 4 mg IV Q8H PRN PRN Reason: Nausea And Vomiting Last Admin: 05/19/18 12:42 Dose: 4 mg Documented by: Sodium Chloride (Sodium Chloride Flush Syringe 10 Ml) 10 ml IV BID [facility] Last Admin: 05/19/18 23:00 Dose: 10 ml Documented by: Sodium Chloride (Sodium Chloride Flush Syringe 10 Ml) 10 ml IV PRN PRN PRN Reason: LINE FLUSH - Vital Signs Vital signs: Vital Signs Temp Pulse Resp BP Pulse Ox 100.2 F H 128 H 20 229/143 99 05/18/18 14:28 05/18/18 14:28 05/18/18 14:28 05/18/18 14:28 05/18/18 14:28 Temp Pulse Resp BP Pulse Ox 98.5 F 96 H 22 158/92 98 05/20/18 11:07 05/20/18 11:07 05/20/18 11:07 05/20/18 11:07 05/20/18 11:07 - Physical Exam Vulva: both: normal (mild blood present at perineum) Results Result Diagrams: 05/21/18 05:52 05/21/18 05:52 Abnormal lab results 05/20/18 05/20/18 Range/Units 07:39 07:39 RBC 3.41 L (3.65-5.03) M/mm3 RDW 12.8 L (13.2-15.2) % [place] % (Auto) 8.3 H (0.0-7.3) % [place] # 0.9 H (0.0-0.8) K/mm3 Potassium 3.5 L (3.6-5.0) mmol/L Creatinine 0.6 L (0.7-1.2) mg/dL Glucose 299 H (65-100) mg/dL Albumin 3.0 L (3.9-5) g/dL All other labs normal. Assessment and Plan - Patient Problems (1) Abnormal uterine bleeding (AUB) Onset Date: 05/21/18 Status: Acute Plan to address problem: 1. Schedule for D&C to be done while patient under anesthesia for scheduled I&D of gluteal abscess. Risks, benefits and alternatives discussed with patient and informed consent signed. Due to her body habitus an outpatient endometrial biopsy would be difficult to perform. 2. Discussed importance of ruling out endometrial cancer with patient. 3. Will place on short-term progesterone post-op to manage vaginal bleeding during hospitilization. 4. Patient will need to follow-up outpatient for continued management of AUB once discharged from hospital.
--- NOTE | 2018-05-20 12:30 | Anesthesia Day of Surgery ---
Anesthesia Day of Surgery - Day of Surgery Patient Examined: Yes Patient H&P Reviewed: Yes Patient is NPO: Yes Beta Blockers: No Cardiac Clearance: No Pulmonary Clearance: No Gurvinder's Test: N/A
--- NOTE | 2018-05-20 12:30 | Anesthesia Consultation ---
Anesthesia Consult and Med Hx Date of service: 05/20/18 - Airway Anesthetic Teeth Evaluation: Good ROM Head & Neck: Adequate Mental/Hyoid Distance: Adequate Mallampati Class: Class II Intubation Access Assessment: Probably Good - Pulmonary Exam CTA: Yes - Cardiac Exam Cardiac Exam: RRR - Pre-Operative Health Status ASA Pre-Surgery Classification: ASA3 Proposed Anesthetic Plan: General - Pulmonary Hx Smoking: Yes - Cardiovascular System Hx Hypertension: Yes - Central Nervous System Hx Psychiatric Problems: Yes - Other Systems Hx Cancer: No
[2018-05-20] MEDS ORDERED: DILAUDID IV PRN (12:31)
[2018-05-20] MEDS ORDERED: HYDROGEN PEROXIDE ONE (12:55)
[2018-05-20] MEDS ORDERED: MARCAINE 0.5% INFILTRATI ONE (12:58)
[2018-05-20] MEDS ORDERED: VERSED IV NR (13:00)
[2018-05-20] MEDS: LACTATED RINGERS 1,000 ML IV SCH (13:20)
--- NOTE | 2018-05-20 14:25 | Progress Note ---
Assessment and Plan Assessment and plan: 42 YO Female with MO, HTN, DM, HPV, Menorrhagia, Nicotine Dependence presents to ED for evaluation. Pt states that she has experienced pain and swelling in her right buttock over the past week with progressively worsening symptoms over the same time frame. Pt states that her pain is 10/10, constant, worse with pressure and palpation. Pt also reports heavy vaginal bleeding over the past 5 days. Pt stats that she is using approximately 8 pads per day, which has been the case with her menses over the past several months. Pt transported to [facility] via private vehicle. Pt seen and evaluated in ED and found to have UTI, Right Buttock Cellulitis, SIRS and Acidosis. Pt admitted to medical floor and treated with IV antibiotic therapy. Pt denies fever, chills, CP, Palpitations, NVD, Trauma, BRBPR, or recent ill contacts. Per pateint she had a traumatic experience in 2011 following a ESTIMATOR procedure and was discharged with wound vac. As a result she has not follow up. Her vaginal bleed has been chronic since then, she also reports previous plan to "freeze my uterus" but she did not follow up Vaginal ultrasound: thickened endometrium - Hypertensive urgency Per patient, home BP meds not working. Will start on Lisinopril due to her her underlying DM, will also adjust Hydralaz ine to q4. she will likely benefit from HCTZ on discharge. -SIRS (systemic inflammatory response syndrome) Current Visit: Yes Status: Acute Plan to address problem: cONTINUE IV antibiotic therapy, IVF resuscitation therapy, serial lactic acid level, monitor uop q shift, urinalysis, blood cultures. -No evidence of Sepsis - Cellulitis of right buttock Current Visit: Yes Status: Acute Plan to address problem: IV antibiotic therapy, CT Pelvis, pain control, wound care consult Surgery input noted, will have OR for I/D today - DM with Hyperglycemia A1C checked, 12.6 Patient has not been complaint with oral medication because she states it causes diarrhea. On discharge will change to Insulin and glipizide if need for oral. Counselling provided extensively and risk of non compliance with meds stressed and she verbalized understanding. -Menorrhagia Current Visit: Yes Status: Acute Qualifiers: Menorrahagia type: with regular cycle Qualified Code(s): N92.0 - Excessive and frequent menstruation with regular cycle Plan to address problem: CBC, ESTIMATOR F/U care, Pelvic Ultrasound - UTI (urinary tract infection) Current Visit: Yes Status: Acute Qualifiers: Encounter type: initial encounter Plan to address problem: IV antibiotic therapy, - Morbid Obesity Weight loss Recommended -DVT prophylaxis Current Visit: Yes Status: Acute Plan to address problem: Lovenox, prophylactic History Interval history: Patient seen and examined, still with complaints of gluteal pain. Hospitalist Physical - Physical exam Narrative exam: General appearance: Present: mild distress, obese, malodorous - EENT Eyes: Present: PERRL ENT: hearing intact, clear oral mucosa - Neck Neck: Present: supple, normal ROM - Respiratory Respiratory effort: normal Respiratory: bilateral: CTA - Cardiovascular Heart Sounds: Present: S1 & S2. Absent: rub, click - Extremities Extremities: pulses symmetrical, No edema Peripheral Pulses: within normal limits - Abdominal General gastrointestinal: Present: soft, non-tender, non-distended, normal bowel sounds Female genitourinary: Present: normal - Rectal Rectal Exam: normal exam-external/orifice - Integumentary Integumentary: Present: EDEMA, DRESSING OVER THE GLUTEAL AREA, erythema - Musculoskeletal Musculoskeletal: gait normal, strength equal bilaterally - Psychiatric Psychiatric: appropriate mood/affect, intact judgment & insight - Neurologic Neurologic: CNII-XII intact, moves all extremities - Constitutional Vitals: Temp Pulse Resp BP Pulse Ox 98.5 F 95 H 20 173/107 100 05/20/18 12:30 05/20/18 12:30 05/20/18 12:30 05/20/18 12:30 05/20/18 12:30 General appearance: Present: no acute distress, well-nourished, obese Results - Labs CBC & Chem 7: 05/21/18 05:52 05/21/18 05:52 Labs: Laboratory Last Values WBC 10.3 K/mm3 (4.5-11.0) 05/20/18 07:39 RBC 3.41 M/mm3 (3.65-5.03) L 05/20/18 07:39 Hgb 10.8 gm/dl (10.1-14.3) 05/20/18 07:39 Hct 31.7 % (30.3-42.9) D 05/20/18 07:39 MCV 93 fl (79-97) 05/20/18 07:39 MCH 32 pg (28-32) 05/20/18 07:39 MCHC 34 % (30-34) 05/20/18 07:39 RDW 12.8 % (13.2-15.2) L 05/20/18 07:39 Plt Count 305 K/mm3 (140-440) 05/20/18 07:39 Lymph % (Auto) 25.0 % (13.4-35.0) 05/20/18 07:39 [place] % (Auto) 8.3 % (0.0-7.3) H 05/20/18 07:39 Eos % (Auto) 1.8 % (0.0-4.3) 05/20/18 07:39 Baso % (Auto) 0.6 % (0.0-1.8) 05/20/18 07:39 Lymph # 2.6 K/mm3 (1.2-5.4) 05/20/18 07:39 [place] # 0.9 K/mm3 (0.0-0.8) H 05/20/18 07:39 Eos # 0.2 K/mm3 (0.0-0.4) 05/20/18 07:39 Baso # 0.1 K/mm3 (0.0-0.1) 05/20/18 07:39 Seg Neutrophils % 64.3 % (40.0-70.0) 05/20/18 07:39 Seg Neutrophils # 6.6 K/mm3 (1.8-7.7) 05/20/18 07:39 VBG pH 7.460 (7.320-7.420) H 05/18/18 14:44 Sodium 138 mmol/L (137-145) 05/20/18 07:39 Potassium 3.5 mmol/L (3.6-5.0) L 05/20/18 07:39 Chloride 103.3 mmol/L (98-107) 05/20/18 07:39 Carbon Dioxide 25 mmol/L (22-30) 05/20/18 07:39 Anion Gap 13 mmol/L 05/20/18 07:39 BUN 9 mg/dL (7-17) 05/20/18 07:39 Creatinine 0.6 mg/dL (0.7-1.2) L 05/20/18 07:39 Estimated GFR > 60 ml/min 05/20/18 07:39 BUN/Creatinine Ratio 15 % 05/20/18 07:39 Glucose 299 mg/dL (65-100) H 05/20/18 07:39 POC Glucose 296 (70-105) H 05/18/18 22:16 Hemoglobin A1c 12.6 % (4-6) H 05/20/18 07:39 Lactic Acid 1.20 mmol/L (0.7-2.0) 05/19/18 10:58 Calcium 8.5 mg/dL (8.4-10.2) 05/20/18 07:39 Total Bilirubin 0.40 mg/dL (0.1-1.2) 05/20/18 07:39 AST 11 units/L (5-40) 05/20/18 07:39 ALT 8 units/L (7-56) 05/20/18 07:39 Alkaline Phosphatase 80 units/L (35-129) 05/20/18 07:39 Total Protein 7.1 g/dL (6.3-8.2) 05/20/18 07:39 Albumin 3.0 g/dL (3.9-5) L 05/20/18 07:39 Albumin/Globulin Ratio 0.7 % 05/20/18 07:39 HCG, Qual Negative (Negative) 05/18/18 15:45 Urine Color Red (Yellow) 05/18/18 15:14 Urine Turbidity Slightly cloudy (Clear) 05/18/18 15:14 Urine pH 6.0 (5.0-7.0) 05/18/18 15:14 Ur Specific [place] 1.007 (1.003-1.030) 05/18/18 15:14 Urine Protein 100 mg/dl mg/dL (Negative) 05/18/18 15:14 Urine Glucose (UA) >500 mg/dL (Negative) 05/18/18 15:14 Urine Ketones Trace mg/dL (Negative) 05/18/18 15:14 Urine Blood Large (Negative) A 05/18/18 15:14 Urine Nitrite Negative (Negative) 05/18/18 15:14 Urine Bilirubin Negative (Negative) 05/18/18 15:14 Urine Urobilinogen < 2.0 mg/dL (<2.0) 05/18/18 15:14 Ur Leukocyte Esterase Negative (Negative) 05/18/18 15:14 Urine WBC (Auto) > 182.0 /HPF (0.0-6.0) H 05/18/18 15:14 Urine RBC (Auto) > 182.0 /HPF (0.0-6.0) 05/18/18 15:14
[2018-05-20] MEDS ORDERED: BREVIBLOC IV ONE (14:55)
--- NOTE | 2018-05-20 15:30 | Post Operative Note ---
Date of procedure: 05/20/18 Pre-op diagnosis: right gluteal abscess Post-op diagnosis: same Findings: large amount of thick purulent drainage. 10 cm x 14 cm abscess cavity Procedure: incision and drainage of right gluteal abscess, excisional debridement of a bscess Anesthesia: MAC, local Surgeon: TIMOTHY HERNÁNDEZ Estimated blood loss: minimal Pathology: list (wound cultures) Specimen disposition: to lab Condition: stable Disposition: other (OR - for next procedure with Dr. Elliott)
[2018-05-20] MEDS ORDERED: SUBLIMAZE ONE (15:56)
[2018-05-20] MEDS ORDERED: NACL 0.9% IR ONE ×2 (16:10)
[2018-05-20] MEDS ORDERED: CLEOCIN 300 MG/50 mL 300 MG/50 ML BAG IV ONE (16:14)
[2018-05-20] MEDS ORDERED: DOXYCYCLINE HYCLATE 200 MG in NACL 0.9% 250ML 250 ML IV ONE (17:00)
[2018-05-20] MEDS ORDERED: HumuLIN R IV ONE (17:17)
[2018-05-20] MEDS: ZOFRAN IV PRN (17:34)
--- NOTE | 2018-05-20 17:48 | Operative Report ---
Operative Report Operative Report: PRE-OP Diagnosis 1. Abnormal uterine bleeding 2. Morbid obesity 3. Uncontrolled diabetes mellitus 4. Hypertension 5. Class III Obesity POST-OP Diagnosis 1. Abnormal uterine bleeding 2. Morbid obesity 3. Uncontrolled diabetes mellitus 4. Hypertension 5. Class III Obesity Procedure 1. Dilatation and curettage Surgeon: Dr. Bree Elliott Findings 1. Uterus sounded to 10--11cm 2. Dark red intrauterine blood 3. Vaginal prolapse I/O EBL <25ml Specimens removed 1. Endometrial curretings. Anesthesia: General DISPOSITION: Patient extubated and transported to OR in stable condition. INDICTATIONS: 42yo presented to ER complaining of abnormal uterine bleeding and buttocks pain. She was scheduled for an I&D of gluteal abscess and since patient has multiple comorbidities and inability to sample uterine contents in office due to body habitus, she was also consented for a therapeutic and d iagnostic D&C. The risks including but not limited to bleeding, infection and uterine perforation were discussed and informed consent signed. PROCEDURE: Upon my entering OR11 the patient was previously intubated and in dorsal lithotomy position with Gurvinder stirrups. A time out was done. A sterile speculum was placed and cervix was identified. Single toothed tenaculum was placed on the anterior and posterior lip of the cervix. The uterus was sounded and a D&C was done with 1, 2 and 3 sharp curretes. Dark red blood and endometrial tissue was noted to pass per cervical os. The tissue was sent to pathology. The patient was awakened from anesthesia and taken to the recovery room in stable condition. I was present and scrubbed for the entire procedure. All counts were correct x 3. Patient was awakened from anesthesia in stable condition and transported to the PACU.
[2018-05-20] MEDS ORDERED: REGLAN ONE (18:06)
[2018-05-20] MEDS ORDERED: REGLAN IV ONE (18:12)
[2018-05-20] MEDS ORDERED: LANTUS SUB-Q SCH (22:00)
[2018-05-20] MEDS: LOVENOX SUB-Q SCH (22:49)
[2018-05-20] MEDS: SODIUM CHLORIDE FLUSH SYRINGE 10 ML IV SCH (23:04)
[2018-05-21] MEDS: LANTUS SUB-Q SCH ×2 (00:35→22:44)
[2018-05-21] MEDS: HumaLOG SUB-Q SCH ×4 (00:36→18:43)
[2018-05-21 06:32] LABS: Basophils % (Auto) 0.5 % (0.0-1.8); Eosinophils # (Auto) 0.2 K/mm3 (0.0-0.4); Eosinophils % (Auto) 1.8 % (0.0-4.3); Hematocrit 31.7 % (30.3-42.9); Lymphocytes # (Auto) 2.4 K/mm3 (1.2-5.4); Lymphocytes % (Auto) 26.1 % (13.4-35.0); Mean Corpuscular HGB Conc 35 % (30-34); Mean Corpuscular Volume 93 fl (79-97); Monocytes # (Auto) 0.7 K/mm3 (0.0-0.8); Monocytes % (Auto) 7.4 % (0.0-7.3); Platelet Count 366 K/mm3 (140-440)
[2018-05-21 06:58] LABS: Alanine Aminotransferase 8 units/L (7-56); Albumin 2.9 g/dL (3.9-5); BUN/Creatinine Ratio 15; Blood Urea Nitrogen 12 mg/dL (7-17); Calcium 8.6 mg/dL (8.4-10.2); Hemolysis Index 2
[2018-05-21] MEDS: IBUPROFEN PO PRN ×2 (09:12→23:33)
[2018-05-21] MEDS: LACTATED RINGERS 1,000 ML IV SCH (09:14)
[2018-05-21] MEDS: FLAGYL 500 MG/100 ML 500 MG/100 ML BAG IV SCH ×3 (10:48→18:49)
[2018-05-21] MEDS: LEVAQUIN 750MG/150ML 750 MG/150 ML BAG IV SCH (10:54)
[2018-05-21] MEDS: PEPCID PO SCH ×2 (10:55→22:44)
[2018-05-21] MEDS: ZESTRIL PO SCH (11:00)
[2018-05-21] MEDS: SODIUM CHLORIDE FLUSH SYRINGE 10 ML IV SCH ×2 (11:07→22:03)
[2018-05-21] MEDS ORDERED: ATIVAN IV ONE (14:00)
[2018-05-21] MEDS ORDERED: DILAUDID IV ONE (14:00)
--- NOTE | 2018-05-21 14:06 | Operative Report ---
PREOPERATIVE DIAGNOSIS: Right gluteal abscess. POSTOPERATIVE DIAGNOSIS: Right gluteal abscess. PROCEDURE: Incision and drainage of right gluteal abscess with excisional debridement of abscess cavity. ANESTHESIA: MAC and local. SURGEON: Nguyen John DO. ESTIMATED BLOOD LOSS: Minimal. PATHOLOGY: Wound cultures. SPECIMEN DISPOSITION: To lab. CONDITION: Stable. DISPOSITION: OR for next procedure with Dr. Mejia. HISTORY OF PRESENT ILLNESS AND INDICATION: The patient is a 42-year-old female who was admitted to the hospital with complaints of heavy menses and right gluteal pain for 2 days. The patient noticed that the area in the right gluteal cleft becoming hard and very tender to the touch and was found to have an abscess on physical exam. Recommendation was to perform an incision and drainage. However, due to the patient's extreme pain, it was recommended to do this in the operating room under anesthesia. All risks, benefits, and alternatives to surgery were discussed with the patient and consent obtained. PROCEDURE IN DETAIL: The patient was identified in the preoperative area and taken back to the operating room and placed on the operating table in supine position. After anesthesia was induced, the patient was placed in right lateral decubitus position with left side up. The left buttock was retracted using tape and the right gluteal abscess was visualized. All bony prominences were padded and the patient was strapped to the table. The right gluteal area was prepped and draped in the usual sterile fashion and a timeout was performed. Local anesthetic was infiltrated into the skin and subcutaneous tissue at the intended incision site. Using a #11 blade, a 3-cm incision was made over the area of fluctuance. Using a hemostat, this area was bluntly dissected until there was a copious amount of purulent drainage. There was thick purulent drainage from the wound, which was cultured. The loculations were broken up bluntly using a gloved finger and a hemostat. Once all loculations were broken up and all purulent material expressed, the wound cavity was irrigated with a copious amount of saline. The wound was checked for hemostasis, which was achieved with pressure. There was some fibrinous material as well as a necrotic appearing subcutaneous tissue associated with abscess cavity which was sharply debrided using forceps and a blade, electrocautery. Once again, we checked for hemostasis. Once this was ensured and the wound was clean, the wound was packed with 1 piece of saline moistened Kerlix. This was covered with an ABD pad. At the end of this portion of the procedure, all sponge, instrument, sharp counts were correct x 2. The patient was then repositioned for Dr. Mejia's portion of the procedure and left in the OR in stable condition. JOB# [id number] NK/NTS
--- NOTE | 2018-05-21 14:18 | Progress Note ---
Assessment and Plan - Patient Problems (1) Abnormal uterine bleeding (AUB) Onset Date: 05/21/18 Current Visit: Yes Status: Acute Plan to address problem: A: Menorrhagia - improved s/p D&C Right gluteal abscess - s/p I&D P: Pt can be discharged to home from a Medical Director/Head Team Physician standpoint and follow up with Dr Elliott in the office Continue present management of gluteal abscess (2) Abscess of right buttock Onset Date: 05/21/18 Current Visit: Yes Status: Acute (3) Sepsis Onset Date: 05/21/18 Current Visit: Yes Status: Acute Qualifiers: Sepsis type: Streptococcus group B Qualified Code(s): A40.1 - Sepsis due to streptococcus, group B Subjective - Subjective Date of service: 05/21/18 Principal diagnosis: Cellulitis right buttock, SIRS,T2DM, Menorrhagia - s/p I&D; s/p D&C Interval history: 42yo with a long-standing history of abnormal uterine bleeding since 2011 - s/p D&C; and s/p incision and drainage of right gluteal abscess, excisional debridement of abscess - POD #1 She states she is feeling better, and bleeding has diminished. Patient reports: appetite normal, pain well controlled Objective - Vital Signs Latest vital signs: Vital Signs Temp Pulse Pulse Resp BP Pulse Ox 05/21/18 11:04 99.4 F 96 H 22 141/77 97 05/21/18 11:00 141/77 05/21/18 10:12 18 05/21/18 09:12 18 05/21/18 04:38 98.2 F 99 H 24 148/89 100 05/20/18 22:14 98.0 F 117 H 20 185/88 99 05/20/18 22:00 117 H 20 99 05/20/18 18:30 97 H 31 H 138/76 99 05/20/18 18:15 98 H 30 H 162/85 98 05/20/18 18:00 99 H 30 H 193/91 99 05/20/18 17:45 96 H 32 H 176/86 100 05/20/18 17:30 96 H 15 216/113 100 05/20/18 17:25 216/113 05/20/18 17:15 83 21 201/93 93 05/20/18 17:10 80 22 201/94 92 05/20/18 17:05 89 20 194/101 97 05/20/18 17:00 83 15 181/106 100 05/20/18 16:57 97.4 F L 88 16 180/100 99 Intake and Output 05/20/18 05/21/18 05/21/18 22:59 06:59 14:59 Intake Total 310 2900 Balance 310 2900 Intake: IV 310 1000 Lactated Ringers 1,000 ml 1000 @ 75 mls/hr IV DIRECT KARYN Rx#:[id number] Left Wrist 10 Oral 1900 Other: Total, Intake Amount 1000 Weight 161.1 kg - Labs Labs: Abnormal lab results 05/21/18 05/21/18 Range/Units 05:52 05:52 RBC 3.40 L (3.65-5.03) M/mm3 MCHC 35 H (30-34) % RDW 13.0 L (13.2-15.2) % [place] % (Auto) 7.4 H (0.0-7.3) % Glucose 210 H (65-100) mg/dL Albumin 2.9 L (3.9-5) g/dL Laboratory Results - last 24 hr 05/19/18 05/19/18 05/19/18 06:48 11:09 17:44 WBC RBC Hgb Hct MCV MCH MCHC RDW Plt Count Lymph % (Auto) [place] % (Auto) Eos % (Auto) Baso % (Auto) Lymph # [place] # Eos # Baso # Seg Neutrophils % Seg Neutrophils # Sodium Potassium Chloride Carbon Dioxide Anion Gap BUN Creatinine Estimated GFR BUN/Creatinine Ratio Glucose POC Glucose 293 H 335 H 315 H Calcium Total Bilirubin AST ALT Alkaline Phosphatase Total Protein Albumin Albumin/Globulin Ratio 05/20/18 05/20/18 05/20/18 00:44 06:26 11:01 WBC RBC Hgb Hct MCV MCH MCHC RDW Plt Count Lymph % (Auto) [place] % (Auto) Eos % (Auto) Baso % (Auto) Lymph # [place] # Eos # Baso # Seg Neutrophils % Seg Neutrophils # Sodium Potassium Chloride Carbon Dioxide Anion Gap BUN Creatinine Estimated GFR BUN/Creatinine Ratio Glucose POC Glucose 364 H 267 H 270 H Calcium Total Bilirubin AST ALT Alkaline Phosphatase Total Protein Albumin Albumin/Globulin Ratio 05/20/18 05/20/18 05/21/18 17:07 23:20 00:26 WBC RBC Hgb Hct MCV MCH MCHC RDW Plt Count Lymph % (Auto) [place] % (Auto) Eos % (Auto) Baso % (Auto) Lymph # [place] # Eos # Baso # Seg Neutrophils % Seg Neutrophils # Sodium Potassium Chloride Carbon Dioxide Anion Gap BUN Creatinine Estimated GFR BUN/Creatinine Ratio Glucose POC Glucose 260 H 387 H 370 H Calcium Total Bilirubin AST ALT Alkaline Phosphatase Total Protein Albumin Albumin/Globulin Ratio 05/21/18 05/21/18 05/21/18 05:52 05:52 07:34 WBC 9.2 RBC 3.40 L Hgb 11.0 Hct 31.7 MCV 93 MCH 32 MCHC 35 H RDW 13.0 L Plt Count 366 Lymph % (Auto) 26.1 [place] % (Auto) 7.4 H Eos % (Auto) 1.8 Baso % (Auto) 0.5 Lymph # 2.4 [place] # 0.7 Eos # 0.2 Baso # 0.0 Seg Neutrophils % 64.2 Seg Neutrophils # 5.9 Sodium 139 Potassium 3.8 Chloride 103.1 Carbon Dioxide 26 Anion Gap 14 BUN 12 Creatinine 0.8 Estimated GFR > 60 BUN/Creatinine Ratio 15 Glucose 210 H POC Glucose 244 H Calcium 8.6 Total Bilirubin 0.30 AST 11 ALT 8 Alkaline Phosphatase 82 Total Protein 7.3 Albumin 2.9 L Albumin/Globulin Ratio 0.7 05/21/18 05/21/18 11:42 16:54 WBC RBC Hgb Hct MCV MCH MCHC RDW Plt Count Lymph % (Auto) [place] % (Auto) Eos % (Auto) Baso % (Auto) Lymph # [place] # Eos # Baso # Seg Neutrophils % Seg Neutrophils # Sodium Potassium Chloride Carbon Dioxide Anion Gap BUN Creatinine Estimated GFR BUN/Creatinine Ratio Glucose POC Glucose 388 H 349 H Calcium Total Bilirubin AST ALT Alkaline Phosphatase Total Protein Albumin Albumin/Globulin Ratio Microbiology 05/20/18 Unknown Buttock Surgical Culture - Final Beta Hemolytic Strep Group B 05/18/18 14:57 Peripheral/Venous Blood Culture - Preliminary NO GROWTH AFTER 72 HOURS 05/18/18 14:44 Peripheral/Venous Blood Culture - Preliminary NO GROWTH AFTER 72 HOURS 05/18/18 15:14 Urine,Clean Catch Urine Culture - Final Beta Hemolytic Strep Group B
--- NOTE | 2018-05-21 15:22 | Progress Note ---
Assessment and Plan Assessment and plan: 42 YO Female with MO, HTN, DM, HPV, Menorrhagia, Nicotine Dependence presents to ED for evaluation. Pt states that she has experienced pain and swelling in her right buttock over the past week with progressively worsening symptoms over the same time frame. Pt states that her pain is 10/10, constant, worse with pressure and palpation. Pt also reports heavy vaginal bleeding over the past 5 days. Pt stats that she is using approximately 8 pads per day, which has been the case with her menses over the past several months. Pt transported to [facility] via private vehicle. Pt seen and evaluated in ED and found to have UTI, Right Buttock Cellulitis, SIRS and Acidosis. Pt admitted to medical floor and treated with IV antibiotic therapy. Pt denies fever, chills, CP, Palpitations, NVD, Trauma, BRBPR, or recent ill contacts. 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 As a result she has not follow up. Her vaginal bleed has been chronic since then, she also reports previous plan to "freeze my uterus" but she did not follow up Vaginal ultrasound: thickened endometrium Patient udnerwent s/p I&D; s/p D&C on the I/D large amount of thick purulent drainage. 10 cm x 14 cm abscess cavity - Hypertensive urgency Continue Lisinopril due to her her underlying DM, will also adjust Hydralazine to q4. she will likely benefit from HCTZ on discharge. -SIRS (systemic inflammatory response syndrome) Current Visit: Yes Status: Acute Plan to address problem: cONTINUE IV antibiotic therapy, IVF resuscitation therapy, serial lactic acid level, monitor uop q shift, urinalysis, blood cultures. -No evidence of Sepsis - Cellulitis of right buttock Current Visit: Yes Status: Acute Plan to address problem: IV antibiotic therapy, CT Pelvis, pain control, wound care consult Surgery input noted,s/p I/D Will be discharge in am with levaquin and flagly for 7 days and follow with surgery for micro data - DM with Hyperglycemia A1C checked, 12.6 Patient has not been complaint with oral medication because she states it causes diarrhea. On discharge will change to Insulin and glipizide if need for oral. Counselling provided extensively and risk of non compliance with meds stressed and she verbalized understanding. -Menorrhagia Current Visit: Yes Status: Acute Qualifiers: Menorrahagia type: with regular cycle Qualified Code(s): N92.0 - Excessive and frequent menstruation with regular cycle Plan to address problem: CBC, LEVEL VIAL INSPECTOR F/U care, Pelvic Ultrasound - UTI (urinary tract infection) Current Visit: Yes Status: Acute Qualifiers: Encounter type: initial encounter Plan to address problem: IV antibiotic therapy, - Morbid Obesity Weight loss Recommended -DVT prophylaxis Current Visit: Yes Status: Acute Plan to address problem: Lovenox, prophylactic History Interval history: Patient seen and examined, Reports improvement following the D/C and I/D. Pain level is a 2/10. no nausea, vomiting or fever. Hospitalist Physical - Physical exam Narrative exam: General appearance: Present: mild distress, obese, - EENT Eyes: Present: PERRL ENT: hearing intact, clear oral mucosa - Neck Neck: Present: supple, normal ROM - Respiratory Respiratory effort: normal Respiratory: bilateral: CTA - Cardiovascular Heart Sounds: Present: S1 & S2. Absent: rub, click - Extremities Extremities: pulses symmetrical, No edema Peripheral Pulses: within normal limits - Abdominal General gastrointestinal: Present: soft, non-tender, non-distended, normal bowel sounds Female genitourinary: Present: normal - Rectal Rectal Exam: normal exam-external/orifice - Integumentary Integumentary: Present: EDEMA, DRESSING OVER THE GLUTEAL AREA, no drainage. - Musculoskeletal Musculoskeletal: gait normal, strength equal bilaterally - Psychiatric Psychiatric: appropriate mood/affect, intact judgment & insight - Neurologic Neurologic: CNII-XII intact, moves all extremities - Constitutional Vitals: Temp Pulse Resp BP Pulse Ox 99.4 F 96 H 22 141/77 97 05/21/18 11:04 05/21/18 11:04 05/21/18 11:04 05/21/18 11:04 05/21/18 11:04 General appearance: Present: no acute distress, well-nourished, obese Results - Labs CBC & Chem 7: 05/21/18 05:52 05/21/18 05:52 Labs: Laboratory Last Values WBC 9.2 K/mm3 (4.5-11.0) 05/21/18 05:52 RBC 3.40 M/mm3 (3.65-5.03) L 05/21/18 05:52 Hgb 11.0 gm/dl (10.1-14.3) 05/21/18 05:52 Hct 31.7 % (30.3-42.9) 05/21/18 05:52 MCV 93 fl (79-97) 05/21/18 05:52 MCH 32 pg (28-32) 05/21/18 05:52 MCHC 35 % (30-34) H 05/21/18 05:52 RDW 13.0 % (13.2-15.2) L 05/21/18 05:52 Plt Count 366 K/mm3 (140-440) 05/21/18 05:52 Lymph % (Auto) 26.1 % (13.4-35.0) 05/21/18 05:52 [place] % (Auto) 7.4 % (0.0-7.3) H 05/21/18 05:52 Eos % (Auto) 1.8 % (0.0-4.3) 05/21/18 05:52 Baso % (Auto) 0.5 % (0.0-1.8) 05/21/18 05:52 Lymph # 2.4 K/mm3 (1.2-5.4) 05/21/18 05:52 [place] # 0.7 K/mm3 (0.0-0.8) 05/21/18 05:52 Eos # 0.2 K/mm3 (0.0-0.4) 05/21/18 05:52 Baso # 0.0 K/mm3 (0.0-0.1) 05/21/18 05:52 Seg Neutrophils % 64.2 % (40.0-70.0) 05/21/18 05:52 Seg Neutrophils # 5.9 K/mm3 (1.8-7.7) 05/21/18 05:52 VBG pH 7.460 (7.320-7.420) H 05/18/18 14:44 Sodium 139 mmol/L (137-145) 05/21/18 05:52 Potassium 3.8 mmol/L (3.6-5.0) 05/21/18 05:52 Chloride 103.1 mmol/L (98-107) 05/21/18 05:52 Carbon Dioxide 26 mmol/L (22-30) 05/21/18 05:52 Anion Gap 14 mmol/L 05/21/18 05:52 BUN 12 mg/dL (7-17) 05/21/18 05:52 Creatinine 0.8 mg/dL (0.7-1.2) 05/21/18 05:52 Estimated GFR > 60 ml/min 05/21/18 05:52 BUN/Creatinine Ratio 15 % 05/21/18 05:52 Glucose 210 mg/dL (65-100) H 05/21/18 05:52 POC Glucose 296 (70-105) H 05/18/18 22:16 Hemoglobin A1c 12.6 % (4-6) H 05/20/18 07:39 Lactic Acid 1.20 mmol/L (0.7-2.0) 05/19/18 10:58 Calcium 8.6 mg/dL (8.4-10.2) 05/21/18 05:52 Total Bilirubin 0.30 mg/dL (0.1-1.2) 05/21/18 05:52 AST 11 units/L (5-40) 05/21/18 05:52 ALT 8 units/L (7-56) 05/21/18 05:52 Alkaline Phosphatase 82 units/L (35-129) 05/21/18 05:52 Total Protein 7.3 g/dL (6.3-8.2) 05/21/18 05:52 Albumin 2.9 g/dL (3.9-5) L 05/21/18 05:52 Albumin/Globulin Ratio 0.7 % 05/21/18 05:52 HCG, Qual Negative (Negative) 05/18/18 15:45 Urine Color Red (Yellow) 05/18/18 15:14 Urine Turbidity Slightly cloudy (Clear) 05/18/18 15:14 Urine pH 6.0 (5.0-7.0) 05/18/18 15:14 Ur Specific [place] 1.007 (1.003-1.030) 05/18/18 15:14 Urine Protein 100 mg/dl mg/dL (Negative) 05/18/18 15:14 Urine Glucose (UA) >500 mg/dL (Negative) 05/18/18 15:14 Urine Ketones Trace mg/dL (Negative) 05/18/18 15:14 Urine Blood Large (Negative) A 05/18/18 15:14 Urine Nitrite Negative (Negative) 05/18/18 15:14 Urine Bilirubin Negative (Negative) 05/18/18 15:14 Urine Urobilinogen < 2.0 mg/dL (<2.0) 05/18/18 15:14 Ur Leukocyte Esterase Negative (Negative) 05/18/18 15:14 Urine WBC (Auto) > 182.0 /HPF (0.0-6.0) H 05/18/18 15:14 Urine RBC (Auto) > 182.0 /HPF (0.0-6.0) 05/18/18 15:14
--- NOTE | 2018-05-21 15:48 | Progress Note ---
Assessment and Plan 42 yo F s/p incision and drainage of right gluteal abscess, excisional debridement of abscess, POD 1 Plan: 1. packing changed by hot room attendant today -> continue wound care per orders 2. case management c/s for home care - d/w case management 3. follow up cultures 4. strict glucose control 5. prn PO pain control 6 May be discharged once home care is set up. Pt to follow up in wound care clinic. Will follow up final cultures as outpatient. May be discharged on levaquin and flagyl D/W Dr. Ceron. Thank you, please call with questions. Subjective Date of service: 05/21/18 Narrative: Pt seen and examined. Feels much better today. Tolerated dressing change. No f/c Objective Vital Signs - 12hr 05/21/18 05/21/18 05/21/18 04:38 09:12 10:12 Temperature 98.2 F Pulse Rate 99 H Respiratory 24 18 18 Rate Blood Pressure 148/89 O2 Sat by Pulse 100 Oximetry 05/21/18 05/21/18 11:00 11:04 Temperature 99.4 F Pulse Rate 96 H Respiratory 22 Rate Blood Pressure 141/77 141/77 O2 Sat by Pulse 97 Oximetry - General physical appearance Narrative Exam: Gen; AAOx3. NAD CV: s1, s2+ resp; even and unlabored Ext: no c/c/e medical billing clerk photos reviewed - wound clean and dry, pink base, no drainage - Labs 05/21/18 05:52 05/21/18 05:52 Diabetes panel 05/21/18 Range/Units 05:52 Sodium 139 (137-145) mmol/L Potassium 3.8 (3.6-5.0) mmol/L Chloride 103.1 (98-107) mmol/L Carbon Dioxide 26 (22-30) mmol/L BUN 12 (7-17) mg/dL Creatinine 0.8 (0.7-1.2) mg/dL Glucose 210 H (65-100) mg/dL Calcium 8.6 (8.4-10.2) mg/dL AST 11 (5-40) units/L ALT 8 (7-56) units/L Alkaline Phosphatase 82 (35-129) units/L Total Protein 7.3 (6.3-8.2) g/dL Albumin 2.9 L (3.9-5) g/dL Calcium panel 03/13/19 Range/Units 05:52 Calcium 8.6 (8.4-10.2) mg/dL Albumin 2.9 L (3.9-5) g/dL Pituitary panel 05/21/18 Range/Units 05:52 Sodium 139 (137-145) mmol/L Potassium 3.8 (3.6-5.0) mmol/L Chloride 103.1 (98-107) mmol/L Carbon Dioxide 26 (22-30) mmol/L BUN 12 (7-17) mg/dL Creatinine 0.8 (0.7-1.2) mg/dL Glucose 210 H (65-100) mg/dL Calcium 8.6 (8.4-10.2) mg/dL Adrenal panel 05/21/18 Range/Units 05:52 Sodium 139 (137-145) mmol/L Potassium 3.8 (3.6-5.0) mmol/L Chloride 103.1 (98-107) mmol/L Carbon Dioxide 26 (22-30) mmol/L BUN 12 (7-17) mg/dL Creatinine 0.8 (0.7-1.2) mg/dL Glucose 210 H (65-100) mg/dL Calcium 8.6 (8.4-10.2) mg/dL Total Bilirubin 0.30 (0.1-1.2) mg/dL AST 11 (5-40) units/L ALT 8 (7-56) units/L Alkaline Phosphatase 82 (35-129) units/L Total Protein 7.3 (6.3-8.2) g/dL Albumin 2.9 L (3.9-5) g/dL
[2018-05-21] MEDS: MEGACE PO SCH (18:41)
[2018-05-21] MEDS: LOVENOX SUB-Q SCH (22:44)
[2018-05-22] MEDS: HumaLOG SUB-Q SCH ×3 (00:56→15:47)
[2018-05-22] MEDS: FLAGYL 500 MG/100 ML 500 MG/100 ML BAG IV SCH ×2 (02:14→02:20)
[2018-05-22] MEDS: LACTATED RINGERS 1,000 ML IV SCH (06:59)
[2018-05-22] MEDS ORDERED: HCTZ PO SCH (11:00)
--- NOTE | 2018-05-22 11:18 | Discharge Summary ---
Providers - Providers Date of Admission: 05/18/18 19:43 Attending physician: LUIS HARRIS MD 05/18/18 20:07 Consult to Wound/ET Nurse [CONS] Routine Reason For Exam: wound eval 05/19/18 15:54 Consult to Physician [CONS] Urgent Comment: Consulting Provider: TIMOTHY HERNÁNDEZ Physician Instructions: Reason For Exam: EVALUATE RIGHT BUTTOCK ABSCESS 05/20/18 10:36 Consult to Physician [CONS] Routine Comment: Consulting Provider: FRANDY AMBROSIO Physician Instructions: Reason For Exam: dysfunctional uterine bleed 05/20/18 10:37 Consult to Case Management [CONS] Routine Services Needed at Discharge: Religious Education Director Notified:: copy given to [facility] Reason for admission: menorrhagia Condition: Stable Hospital course: 42 YO Female with MO, HTN, DM, HPV, Menorrhagia, Nicotine Dependence presents to ED for evaluation. Pt states that she has experienced pain and swelling in her right buttock over the past week with progressively worsening symptoms over the same time frame. Pt states that her pain is 10/10, constant, worse with pressure and palpation. Pt also reports heavy vaginal bleeding over the past 5 days. Pt stats that she is using approximately 8 pads per day, which has been the case with her menses over the past several months. Pt transported to [facility] via private vehicle. Pt seen and evaluated in ED and found to have UTI, Right Buttock Cellulitis, SIRS and Acidosis. Pt admitted to medical floor and treated with IV antibiotic therapy. Pt denies fever, chills, CP, Palpitations, NVD, Trauma, BRBPR, or recent ill contacts. 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 As a result she has not follow up. Her vaginal bleed has been chronic since then, she also reports previous plan to "freeze my uterus" but she did not follow up Vaginal ultrasound: thickened endometrium Patient udnerwent s/p I&D; s/p D&C on the I/D large amount of thick purulent drainage. 10 cm x 14 cm abscess cavity - Hypertensive urgency Continue Lisinopril due to her her underlying DM, ADDED HCTZ ON DISCHARGE Counselling was provided on BP MANAGEMENT AND FOLLOW UP WITH PCP ADVISED ALSO TO HAVE RENAL FUNCTION CHECK -SIRS (systemic inflammatory response syndrome) Current Visit: Yes Status: Acute Plan to address problem: TREATED WITH IV ABX -No evidence of Sepsis - Cellulitis of right buttock Current Visit: Yes Status: Acute Plan to address problem: IV antibiotic therapy, CT Pelvis, pain control, wound care consult Surgery input noted,s/p I/D WAS dischargewith levaquin and flagly for 7 days and follow with surgery for micro data - DM with Hyperglycemia A1C checked, 12.6 Patient has not been complaint with oral medication because she states it causes diarrhea. On discharge CHANGED to Insulin and glipizide if need for oral. PATIENT HOW EVER REFUSED TRAINING WITH NURSING Counselling provided extensively and risk of non compliance with meds stressed and she verbalized understanding. RISK OF PPOR COMPLIANCE DISCUSSED, SHE VERBALIZED UNDERSTANDING SHE HAS BEEN ON NO MEDICATION FOR MORE THAN A YEAR -Menorrhagia Current Visit: Yes Status: Acute Qualifiers: Menorrahagia type: with regular cycle Qualified Code(s): N92.0 - Excessive and frequent menstruation with regular cycle Plan to address problem: road boss d/c DONE AND RECOMMENDED TO FOLLOW OUTPATINET - UTI (urinary tract infection) TREATED WITH IV - Morbid Obesity Weight loss Recommended Disposition: [id number]/TX-06 HOME UNDER HOME [facility] Time spent for discharge: 35 mins Core Measure Documentation - Palliative Care Palliative Care/ Comfort Measures: Not Applicable - Core Measures Any of the following diagnoses?: none Exam - Physical Exam Narrative exam: General appearance: Present: mild distress, obese, - EENT Eyes: Present: PERRL ENT: hearing intact, clear oral mucosa - Neck Neck: Present: supple, normal ROM - Respiratory Respiratory effort: normal Respiratory: bilateral: CTA - Cardiovascular Heart Sounds: Present: S1 & S2. Absent: rub, click - Extremities Extremities: pulses symmetrical, No edema Peripheral Pulses: within normal limits - Abdominal General gastrointestinal: Present: soft, non-tender, non-distended, normal bowel sounds Female genitourinary: Present: normal - Rectal Rectal Exam: normal exam-external/orifice - Integumentary Integumentary: Present: EDEMA, DRESSING OVER THE GLUTEAL AREA, no drainage. - Musculoskeletal Musculoskeletal: gait normal, strength equal bilaterally - Psychiatric Psychiatric: appropriate mood/affect, intact judgment & insight - Neurologic Neurologic: CNII-XII intact, moves all extremities - Constitutional Vitals: Temp Pulse Resp BP Pulse Ox 98.2 F 97 H 20 181/87 97 03/14/19 04:30 05/22/18 04:30 05/22/18 04:30 05/22/18 04:30 05/22/18 04:30 Plan Activity: advance as tolerated, fall precautions Diet: low fat, diabetic Special Instructions: record daily weights, record daily BP diary, record blood sugar diary, home health RN Additional Instructions: have Renal function checked in 3-5 days due to new BP meds Follow up with: PRIMARY MD FRANCISCO JAVIER [Referring] - 7 Days SHEYLA MCCONNELL MD [Staff Physician] - 7 Days TIMOTHY HERNÁNDEZ DO [Staff Physician] - 3 Days Forms: Work/School Release Form Prescriptions: Insulin Glargine [Lantus VIAL] 16 units SUB-Q QHS 30 Days units Ferrous Sulfate [Feosol 325 MG tab] 325 mg PO BID 30 Days #60 tablet metroNIDAZOLE [Flagyl] 500 mg PO Q8HR #21 tablet hydroCHLOROthiazide [HCTZ] 25 mg PO QDAY #30 tablet Ibuprofen 800 mg PO Q6H PRN 10 Days #20 tablet MDD 3200mg PRN Reason: Pain, Moderate (4-6) levoFLOXacin [Levaquin] 750 mg PO QDAY #7 tablet Megestrol [Megace] 40 mg PO DAILY 5 Days #5 tablet metFORMIN 500 mg PO DAILY #30 HYDROcodone/APAP 5-325 [[place] 5-325 mg TAB] 1 each PO Q6H PRN #14 tablet PRN Reason: Pain, Moderate (4-6) Lisinopril [Zestril TAB] 40 mg PO QDAY #30 tablet Other Discharge Orders: Glucometer (Amb) Location: None Selected Glucometer supplies[Amb] Location: None Selected
[2018-05-22] MEDS: LEVAQUIN 750MG/150ML 750 MG/150 ML BAG IV SCH (11:39)
[2018-05-22] MEDS: ZESTRIL PO SCH (11:40)
[2018-05-22] MEDS: PEPCID PO SCH (11:42)
[2018-05-22] MEDS: SODIUM CHLORIDE FLUSH SYRINGE 10 ML IV SCH (11:43)
[2018-05-22] MEDS: MEGACE PO SCH (15:49)
[2018-05-22] MEDS ORDERED: SENOKOT PO ONE (16:06)
[2018-05-22 18:19] VITALS: BP 168/84
== END 2018-05-22 19:10 | disposition home health service (06) | DRG 854 ==
LOC: ED 14:23 → 3A 19:43
PROVIDERS: ADMIT Internal Medicine; ATTEND Internal Medicine
PROC: 0J990ZZ Drainage of Buttock Subcutaneous Tissue and Fascia, Open Approach (ICD-10-PCS; principal; 2018-05-20)
PROC: 0JB90ZZ Excision of Buttock Subcutaneous Tissue and Fascia, Open Approach (ICD-10-PCS; 2018-05-20)
PROC: 0UDB7ZZ Extraction of Endometrium, Via Natural or Artificial Opening (ICD-10-PCS; 2018-05-20)
DX: A41.9 Sepsis, unspecified organism (principal); L02.31 Cutaneous abscess of buttock; N39.0 Urinary tract infection, site not specified; Z68.43 Body mass index [BMI] 50.0-59.9, adult; L03.317 Cellulitis of buttock; R65.10 Systemic inflammatory response syndrome (SIRS) of non-infectious origin without acute organ dysfunction; N92.0 Excessive and frequent menstruation with regular cycle; N93.9 Abnormal uterine and vaginal bleeding, unspecified; I16.0 Hypertensive urgency; E11.65 Type 2 diabetes mellitus with hyperglycemia; I10 Essential (primary) hypertension; F17.210 Nicotine dependence, cigarettes, uncomplicated; E66.01 Morbid (severe) obesity due to excess calories; Z79.84 Long term (current) use of oral hypoglycemic drugs
CPT/HCPCS: 36415; 72193; 76830; 76856; 80053; 81001; 82140; 82805; 82962; 83036; 84703; 85025; 87040; 87075; 87086; 87116; 88305; 93005; 93010; 96374; 99285; 99406; G0378; A4217; J0360; J1170; J1650; J1815; J1956; J2060; J2250; J2405; J2704; J2765; J3010; J3370; J7030; J7040; J7050; J7120; Q9967

== ENCOUNTER 2018-05-26 08:06 | Outpatient (CLI) | payer OTHER ==
[2018-05-26] MEDS ORDERED: XYLOCAINE TOPICAL 4% TP NR (08:37)
== END 2018-05-26 08:07 | disposition home or self-care (01) ==
LOC: WOUND 08:06
PROVIDERS: ATTEND Surgery
DX: E11.622 Type 2 diabetes mellitus with other skin ulcer (principal); L98.412 Non-pressure chronic ulcer of buttock with fat layer exposed; I10 Essential (primary) hypertension
CPT/HCPCS: 11042; G0463; 99215

== ENCOUNTER 2018-06-02 09:05 | Outpatient (CLI) | payer OTHER ==
[2018-06-02] MEDS ORDERED: XYLOCAINE TOPICAL 4% TP ONE (10:00)
== END 2018-06-02 09:06 | disposition home or self-care (01) ==
LOC: WOUND 09:05
PROVIDERS: ATTEND Surgery
DX: E11.622 Type 2 diabetes mellitus with other skin ulcer (principal); L98.412 Non-pressure chronic ulcer of buttock with fat layer exposed; I10 Essential (primary) hypertension

== ENCOUNTER 2018-06-09 11:03 | Outpatient (CLI) | payer OTHER ==
[2018-06-09] MEDS ORDERED: XYLOCAINE TOPICAL 4% TP ONE (11:22)
== END 2018-06-09 11:04 | disposition home or self-care (01) ==
LOC: WOUND 11:03
PROVIDERS: ATTEND Surgery
DX: E11.622 Type 2 diabetes mellitus with other skin ulcer (principal); L98.412 Non-pressure chronic ulcer of buttock with fat layer exposed; I10 Essential (primary) hypertension

== ENCOUNTER 2018-06-16 10:31 | Outpatient (CLI) | payer OTHER ==
[2018-06-16] MEDS ORDERED: XYLOCAINE TOPICAL 4% TP ONE (10:52)
== END 2018-06-16 10:32 | disposition home or self-care (01) ==
LOC: WOUND 10:31
PROVIDERS: ATTEND Surgery
DX: E11.622 Type 2 diabetes mellitus with other skin ulcer (principal); L98.411 Non-pressure chronic ulcer of buttock limited to breakdown of skin; L02.31 Cutaneous abscess of buttock; I10 Essential (primary) hypertension
CPT/HCPCS: 99215; G0463

== ENCOUNTER 2018-06-23 09:32 | Outpatient (CLI) | payer OTHER | END 2018-06-23 09:33 | disposition home or self-care (01) | LOC: WOUND 09:32 | PROVIDERS: ATTEND Surgery | DX: E11.622 Type 2 diabetes mellitus with other skin ulcer (principal); L98.418 Non-pressure chronic ulcer of buttock with other specified severity; L02.31 Cutaneous abscess of buttock; I10 Essential (primary) hypertension | CPT/HCPCS: 99213; G0463 ==

== ENCOUNTER 2021-09-05 20:29 | Emergency (ER) | payer SELFPAY ==
[2021-09-05] MEDS ORDERED: ONDANSETRON 4 MG/2 ML INJ IV ONE (21:08)
[2021-09-05] MEDS ORDERED: SODIUM CHLORIDE 0.9% 1000 ML 1,000 ML IV ONE (21:08)
[2021-09-05] MEDS ORDERED: METOPROLOL TARTRATE 5 MG/5 ML INJ IV ONE (21:09)
[2021-09-05] MEDS ORDERED: MORPHINE 4 MG/1 ML INJ IV ONE (21:09)
[2021-09-05 22:13] LABS: BUN/Creatinine Ratio 12; Blood Urea Nitrogen 12 mg/dL (7-17); Calcium 9.5 mg/dL (8.4-10.2); Hemolysis Index 43
[2021-09-05 22:28] LABS: Hematocrit 36.9 % (30.3-42.9); Hemoglobin 12.7 gm/dl (10.1-14.3); Mean Corpuscular HGB Conc 34 % (30-34); Mean Corpuscular Volume 91 fl (79-97); Platelet Count 437 K/mm3 (140-440); Red Blood Count 4.06 M/mm3 (3.65-5.03); Red Cell Distribution Width 13.2 % (13.2-15.2)
[2021-09-05 22:29] LABS: Basophils % (Auto) 0.4 % (0.0-1.8); Eosinophils % (Auto) 0.8 % (0.0-4.3); Lymphocytes % (Auto) 29.4 % (13.4-35.0); Monocytes % (Auto) 6.4 % (0.0-7.3)
[2021-09-05 22:30] LABS: Basophils # (Auto) 0.1 K/mm3 (0.0-0.1); Eosinophils # (Auto) 0.1 K/mm3 (0.0-0.4); Lymphocytes # (Auto) 3.5 K/mm3 (1.2-5.4); Monocytes # (Auto) 0.7 K/mm3 (0.0-0.8)
--- NOTE | 2021-09-05 23:17 | Cat Scan Report ---
CT ABDOMEN AND PELVIS WITH CONTRAST INDICATION / CLINICAL INFORMATION: Abdominal pain with constipation. TECHNIQUE: Axial CT images were obtained through the abdomen and pelvis after 100 cc Omnipaque [address] scans at this location are performed using CT dose reduction for ALARA by means of automated exposure control. COMPARISON: None available. FINDINGS: LOWER CHEST: Atelectasis versus scarring in bilateral lung bases. AORTA / ARTERIES: Mild atherosclerotic calcification without acute abnormality. IVC / VEINS: No significant abnormality. LYMPH NODES: No significant adenopathy. COLON: No significant abnormality. APPENDIX: No significant abnormality. STOMACH / SMALL BOWEL: No significant abnormality. PERITONEUM: No free fluid. No free air. No fluid collection. LIVER: No significant abnormality. GALLBLADDER: No significant abnormality. BILE DUCTS: No significant abnormality. PANCREAS: No significant abnormality. SPLEEN: No significant abnormality. ADRENALS: No significant abnormality. RIGHT KIDNEY / URETER: No significant abnormality. LEFT KIDNEY / URETER: No significant abnormality. URINARY BLADDER: No significant abnormality. REPRODUCTIVE ORGANS: No significant abnormality. SKELETAL SYSTEM: No significant abnormality. ADDITIONAL FINDINGS: There is a fat-containing periumbilical hernia. IMPRESSION: 1. Fat-containing periumbilical hernia, otherwise no CT findings to explain symptomatology. Signer Name: Harjit Kirk DO Signed: 09/05/2021 11:13 PM Workstation Name: [id number]
[2021-09-05] MEDS ORDERED: cloNIDine 0.2 MG TAB PO ONE (23:24)
--- NOTE | 2021-09-05 23:51 | Emergency Department Report ---
ED Abdominal Pain HPI - General Chief Complaint: Abdominal Pain Stated Complaint: ABD PAIN Time Seen by Provider: 09/05/21 21:05 Source: EMS Mode of arrival: Stretcher Limitations: No Limitations - History of Present Illness Initial Comments: Patient c/o pain to abdomen, constipation and hypertension. pain started few days ago feels like somthing stuck in there diabetic htn , not compliant because she cannot get her meds refilled , cos she doens;t have oney but she smokes black and mild , Complaint: abdominal pain -: Gradual, days(s) Location: diffuse, periumbilical Radiation: back Migration to: no migration Severity scale (0 -10): 7 Consistency: intermittent Improves With: nothing Worsens With: nothing Associated Symptoms: denies: denies other symptoms - Related Data Previous Rx's Medication Instructions Recorded Last Taken Type Ferrous Sulfate [Feosol 325 MG tab] 325 mg PO BID 30 Days #60 tablet 05/20/18 Unknown Rx Ibuprofen [Ibuprofen 800] 800 mg PO Q6H PRN 10 Days #20 05/20/18 Unknown Rx tablet MDD 3200mg megestroL [Megace] 40 mg PO DAILY 5 Days #5 tablet 05/20/18 Unknown Rx HYDROcodone/APAP 5-325 [[place] 1 each PO Q6H PRN #14 tablet 05/22/18 Unknown Rx 5-325 mg TAB] Insulin Glargine [Lantus VIAL] 16 units SUB-Q QHS 30 Days units 05/22/18 Unknown Rx hydroCHLOROthiazide [HCTZ] 25 mg PO QDAY #30 tablet 05/22/18 Unknown Rx levoFLOXacin [Levaquin] 750 mg PO QDAY #7 tablet 05/22/18 Unknown Rx lisinopriL [Zestril TAB] 40 mg PO QDAY #30 tablet 05/22/18 Unknown Rx metFORMIN 500 mg PO DAILY #30 05/22/18 Unknown Rx metroNIDAZOLE [Flagyl] 500 mg PO Q8HR #21 tablet 05/22/18 Unknown Rx Allergies Allergy/AdvReac Type Severity Reaction Status Date / Time egg Allergy Nausea Verified 05/19/18 09:16 Penicillins Allergy Nausea Verified 05/19/18 09:16 ED Review of Systems ROS: Stated complaint: ABD PAIN Other details as noted in HPI Constitutional: denies: chills, fever Eyes: denies: eye pain, eye discharge, vision change ENT: denies: ear pain, throat pain Respiratory: denies: cough, shortness of breath, wheezing Cardiovascular: denies: chest pain, palpitations Endocrine: no symptoms reported Gastrointestinal: denies: abdominal pain, nausea, diarrhea Genitourinary: denies: urgency, dysuria, discharge Musculoskeletal: denies: back pain, joint swelling, arthralgia Skin: denies: rash, lesions Neurological: denies: headache, weakness, paresthesias Psychiatric: denies: anxiety, depression Hematological/Lymphatic: denies: easy bleeding, easy bruising ED Past Medical Hx - Past Medical History Hx Hypertension: Yes Hx Diabetes: Yes Hx HIV: No Additional medical history: HPV - Surgical History Additional Surgical History: 14 years old given trachea, 3, 3 chest tubes, abdominal debridement - Social History Smoking Status: Current Some Day Smoker - Medications Home Medications: Home Medications Medication Instructions Recorded Confirmed Last Taken Type Ferrous Sulfate [Feosol 325 MG tab] 325 mg PO BID 30 Days #60 tablet 05/20/18 Unknown Rx Ibuprofen [Ibuprofen 800] 800 mg PO Q6H PRN 10 Days #20 05/20/18 Unknown Rx tablet MDD 3200mg megestroL [Megace] 40 mg PO DAILY 5 Days #5 tablet 05/20/18 Unknown Rx HYDROcodone/APAP 5-325 [[place] 1 each PO Q6H PRN #14 tablet 05/22/18 Unknown Rx 5-325 mg TAB] Insulin Glargine [Lantus VIAL] 16 units SUB-Q QHS 30 Days units 05/22/18 Unknown Rx hydroCHLOROthiazide [HCTZ] 25 mg PO QDAY #30 tablet 05/22/18 Unknown Rx levoFLOXacin [Levaquin] 750 mg PO QDAY #7 tablet 05/22/18 Unknown Rx lisinopriL [Zestril TAB] 40 mg PO QDAY #30 tablet 05/22/18 Unknown Rx metFORMIN 500 mg PO DAILY #30 05/22/18 Unknown Rx metroNIDAZOLE [Flagyl] 500 mg PO Q8HR #21 tablet 05/22/18 Unknown Rx ED Physical Exam - General Limitations: No Limitations General appearance: alert, in no apparent distress - Head Head exam: Present: atraumatic, normocephalic - Eye Eye exam: Present: normal appearance - ENT ENT exam: Present: mucous membranes moist - Neck Neck exam: Present: normal inspection - Respiratory Respiratory exam: Present: normal lung sounds bilaterally. Absent: respiratory distress - Cardiovascular Cardiovascular Exam: Present: regular rate, normal rhythm. Absent: systolic murmur, diastolic murmur, rubs, gallop - GI/Abdominal GI/Abdominal exam: Present: tenderness - Extremities Exam Extremities exam: Present: normal inspection - Back Exam Back exam: Present: normal inspection - Neurological Exam Neurological exam: Present: alert, oriented X3 - Psychiatric Psychiatric exam: Present: normal affect, normal mood - Skin Skin exam: Present: warm, dry, intact, normal color. Absent: rash ED Course Vital Signs 09/05/21 09/05/21 21:03 22:03 Temperature 98.7 F Pulse Rate 107 H 86 Respiratory 18 Rate Blood Pressure 126/121 Blood Pressure 202/107 [Left] O2 Sat by Pulse 100 Oximetry ED Medical Decision Making - Lab Data Result diagrams: 09/05/21 21:36 09/05/21 21:36 - Radiology Data Radiology results: report reviewed, image reviewed work up showed normal wbc , ct scna showed umbilical hernia lopressor and clonidine given , will refer to surgery for umbilical hernia Critical care attestation.: If time is entered above; I have spent that time in minutes in the direct care of this critically ill patient, excluding procedure time. ED Disposition Clinical Impression: Abdominal pain, Umbilical hernia, Uncontrolled hypertension Disposition: 01 HOME / SELF CARE / HOMELESS Is pt being admited?: No Does the pt Need Aspirin: No Condition: Stable Instructions: Abdominal Pain (ED), Hypertension (ED), Hernia, Adult Referrals: LEAH APARICIO MD [Primary Care Provider] - 3-5 Days LELAND MARTINEZ MD [Staff Physician] - 3-5 Days
[2021-09-06] MEDS ORDERED: FAMOTIDINE 20 MG TAB PO ONE (00:09)
[2021-09-06 00:44] VITALS: BP 169/74
--- NOTE | 2021-09-07 10:27 | Electrocardiograph Report ---
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 No previous ECG available for comparison Electronically Signed On 09-07-2021 10:26:56 EDT by Kimo Ingram
== END 2021-09-06 01:17 | disposition home or self-care (01) ==
LOC: ED 20:29
DX: K42.9 Umbilical hernia without obstruction or gangrene (principal); I10 Essential (primary) hypertension; R10.84 Generalized abdominal pain; E11.9 Type 2 diabetes mellitus without complications; F17.200 Nicotine dependence, unspecified, uncomplicated; Z98.890 Other specified postprocedural states; Z88.0 Allergy status to penicillin; Z79.899 Other long term (current) drug therapy; Z91.012 Allergy to eggs
CPT/HCPCS: 36415; 74177; 80048; 82150; 83690; 83880; 85025; 86140; 93005; 96361; 96374; 96375; 99284; J2270; J2405; J7030; Q9967

== ENCOUNTER 2021-09-20 17:23 | Inpatient (IN) | payer OTHER ==
[2021-09-21] MEDS ORDERED: SODIUM CHLORIDE 0.9% 1000 ML 1,000 ML IV ONE (02:11)
[2021-09-21] MEDS ORDERED: ONDANSETRON 4 MG/2 ML INJ IV ONE ×2 (02:11→06:11)
[2021-09-21] MEDS ORDERED: MORPHINE 4 MG/1 ML INJ IV ONE ×2 (02:12→04:18)
[2021-09-21 02:13] LABS: Basophils % (Auto) 0.4 % (0.0-1.8); Eosinophils # (Auto) 0.1 K/mm3 (0.0-0.4); Eosinophils % (Auto) 0.9 % (0.0-4.3); Hematocrit 36.7 % (30.3-42.9); Hemoglobin 12.2 gm/dl (10.1-14.3); Lymphocytes % (Auto) 32.1 % (13.4-35.0); Mean Corpuscular HGB Conc 33 % (30-34); Mean Corpuscular Volume 93 fl (79-97); Monocytes # (Auto) 0.6 K/mm3 (0.0-0.8); Monocytes % (Auto) 6.1 % (0.0-7.3); Platelet Count 344 K/mm3 (140-440); Red Blood Count 3.96 M/mm3 (3.65-5.03)
[2021-09-21 02:38] LABS: Alanine Aminotransferase 9 units/L (7-56); Albumin 3.3 g/dL (3.9-5); BUN/Creatinine Ratio 21; Blood Urea Nitrogen 17 mg/dL (7-17); Calcium 9.3 mg/dL (8.4-10.2); Hemolysis Index 25
--- NOTE | 2021-09-21 03:53 | Emergency Department Report ---
HPI - General Chief Complaint: Abdominal Pain PUI?: No Time Seen by Provider: 09/21/21 01:14 - HPI HPI: 46-year-old morbidly obese female with multiple medical comorbidities presents for evaluation of progressively worsening abdominal pain for the past 4 to 5 days. Patient states she was seen in the emergency department here on September 05, 2021 and was told that she has gallbladder problems as well as a hernia. Patient states she followed up with Dr. Jalloh, the general surgeon, who evaluated her and per her report, "he told me that I need to have an ultrasound of my gallbladder because my symptoms sound like they are more from my gallbladder than anything else. He also told me I would need a hernia repair and he would need a mesh put in." Patient reports pain is cramping constant and diffuse throughout her abdomen. It is worsened with any p.o. intake. She complains of nausea. She denies vomiting fevers chills no melena hematochezia or hematemesis. Pain currently 10/10. ED Past Medical Hx - Past Medical History Hx Hypertension: Yes Hx Diabetes: Yes Hx HIV: No Additional medical history: HPV - Surgical History Additional Surgical History: 14 years old given trachea, 3, 3 chest tubes, abdominal debridement - Social History Smoking Status: Current Some Day Smoker - Medications Home Medications: Home Medications Medication Instructions Recorded Confirmed Last Taken Type Ferrous Sulfate [Feosol 325 MG tab] 325 mg PO BID 30 Days #60 tablet 05/20/18 Unknown Rx Ibuprofen [Ibuprofen 800] 800 mg PO Q6H PRN 10 Days #20 05/20/18 Unknown Rx tablet MDD 3200mg megestroL [Megace] 40 mg PO DAILY 5 Days #5 tablet 05/20/18 Unknown Rx HYDROcodone/APAP 5-325 [[place] 1 each PO Q6H PRN #14 tablet 05/22/18 Unknown Rx 5-325 mg TAB] Insulin Glargine [Lantus VIAL] 16 units SUB-Q QHS 30 Days units 05/22/18 Unknown Rx hydroCHLOROthiazide [HCTZ] 25 mg PO QDAY #30 tablet 05/22/18 Unknown Rx levoFLOXacin [Levaquin] 750 mg PO QDAY #7 tablet 05/22/18 Unknown Rx lisinopriL [Zestril TAB] 40 mg PO QDAY #30 tablet 05/22/18 Unknown Rx metFORMIN 500 mg PO DAILY #30 05/22/18 Unknown Rx metroNIDAZOLE [Flagyl] 500 mg PO Q8HR #21 tablet 05/22/18 Unknown Rx Dicyclomine [Bentyl] 10 mg PO QID #30 capsule 09/05/21 Unknown Rx Omeprazole 20 mg PO DAILY #30 09/05/21 Unknown Rx ED Review of Systems ROS: Stated complaint: CHEST PAIN/VOMITING/DIARRHEA Other details as noted in HPI Comment: All other systems reviewed and negative Constitutional: no symptoms reported Eyes: as per HPI ENT: as per HPI Respiratory: no symptoms reported Cardiovascular: chest pain. denies: palpitations, dyspnea on exertion, orthopnea, edema, syncope, paroxysmal nocturnal dyspnea Endocrine: denies: see HPI Gastrointestinal: abdominal pain, nausea Physical Exam - Physical Exam Vital Signs: Vital Signs 09/20/21 20:13 Temperature 98.0 F Pulse Rate 105 H Respiratory 18 Rate Blood Pressure 243/145 [Left] O2 Sat by Pulse 99 Oximetry General: Gen: Morbidly obese middle-aged female, complaining of abdominal pain, very uncomfortable appearing, moderate distress secondary to pain HEENT: Normocephalic atraumatic pupils equally round and reactive to light extraocular muscles intact sclera anicteric Neck: Full range of motion, no midline spinal tenderness palpation, no JVD, no carotid bruits, no nuchal rigidity CVS: S1-S2 regular rate and rhythm with no gallops rubs or murmurs, chest wall nontender Pulmonary: Clear to auscultation bilaterally, no wheezes rales or rhonchi Abdomen: Obese, soft, distended, diffuse tenderness palpation, moderate right upper quadrant tenderness palpation, positive guarding, positive rebound tenderness palpation, hypoactive bowel sounds, no pulsatile masses, no hepatosplenomegaly, no pulsatile masses : Deferred Extremities: No cyanosis no clubbing no edema, intact distal peripheral pulses, Integumentary: Skin normal, no petechia no purpura no abscess no lacerations no evidence of trauma no evidence of infection Neuro: Patient is awake alert and oriented to person place time situation, mentating well, cranial nerves II through XII intact, no focal neurodeficits, sensation grossly tact Psych: Calm cooperative, mood affect normal ED Course Vital Signs 09/20/21 20:13 Temperature 98.0 F Pulse Rate 105 H Respiratory 18 Rate Blood Pressure 243/145 [Left] O2 Sat by Pulse 99 Oximetry - Reevaluation(s) Reevaluation #1: 09/21/21 03:52 Patient reassessed. She is comfortable and well-appearing prior and reports she has continued abdominal pain but she states "I would hold off on getting more pain meds right now." Patient continues to await formal ultrasound. - Consultations Consultation #1: 09/21/21 05:40am; Return call received from on-call surgeon, Dr. Blanc. She states she is already aware of the patient and was made aware of her poor impending presentation to the ER 1 day ago. The patient's presentation, diagnostic imaging, and lab results were reviewed with her. She advises that the patient be admitted to the hospitalist service. She advises the hospitalist service admit the patient to their service and obtain a surgical consult so that the patient may be seen by Dr. Jalloh this morning. ED Medical Decision Making - Lab Data Result diagrams: 09/21/21 02:01 09/21/21 02:01 - Radiology Data Radiology results: report reviewed - Medical Decision Making 46-year-old morbidly obese female presents for evaluation of a tractable abdominal pain and nausea. Patient remains hypertensive here and has received multiple dosages of intravenous labetalol for blood pressure management. Serum labs reviewed. Diagnostic imaging reviewed. Case reviewed via telephone with on-call surgeon, Dr. Blanc. She states she is already aware of the patient. She advises that the hospitalist service admit the patient and that the [facility] service order surgica consultation for the patient to be seen by Dr. Jalloh this morning. Case reviewed via admitting hospitalist, Dr. Krishna. He has provided verbal agreement that he will admit the patient to the hospital service Critical Care Time: No Critical care attestation.: If time is entered above; I have spent that time in minutes in the direct care of this critically ill patient, excluding procedure time. ED Disposition Clinical Impression: Biliary colic Disposition: 01 HOME / SELF CARE / HOMELESS Is pt being admited?: Yes Does the pt Need Aspirin: No Condition: Stable Instructions: Abdominal Pain (ED) Referrals: PRIMARY CARE, [Primary Care Provider] - 3-5 Days Time of Disposition: 05:42
--- NOTE | 2021-09-21 04:27 | Cat Scan Report ---
CT ABDOMEN AND PELVIS WITH CONTRAST INDICATION / CLINICAL INFORMATION: R inguinal hernia, p/w diffuse RUQ and RLQ pain. TECHNIQUE: Axial CT images were obtained through the abdomen and pelvis after Omnipaque 300, 100 cc I V contrast. All CT scans at this location are performed using CT dose reduction for ALARA by means o f automated exposure control. COMPARISON: 09/05/2021. FINDINGS: LOWER CHEST: Mild basilar scarring is unchanged. LIVER: No significant abnormality. GALLBLADDER: No significant abnormality. BILE DUCTS: No significant abnormality. PANCREAS: No significant abnormality. SPLEEN: No significant abnormality. ADRENALS: No significant abnormality. RIGHT KIDNEY / URETER: No significant abnormality. LEFT KIDNEY / URETER: No significant abnormality. STOMACH / SMALL BOWEL: No significant abnormality. COLON: No significant abnormality. APPENDIX: No significant abnormality. PERITONEUM: No free fluid. No free air. No fluid collection. LYMPH NODES: No significant adenopathy. VASCULAR STRUCTURES: No significant abnormality. URINARY BLADDER: No significant abnormality. REPRODUCTIVE ORGANS: 3.4 cm left ovarian cyst. ADDITIONAL FINDINGS: Complex umbilical hernia containing fat and fluid is unchanged. Small midline fa t-containing hernia is seen superior to the umbilicus. SKELETAL SYSTEM: No significant abnormality. IMPRESSION: 1. Umbilical and ventral hernias unchanged. 2. 3.4 cm left ovarian cyst. Signer Name: Jesus Sanford MD Signed: 09/21/2021 4:23 AM Workstation Name: [id number]
[2021-09-21 04:42] LABS: Amphetamine Screen,Urine Negative; Benzodiazepines Screen,Urine Negative; Cocaine Screen,Urine Negative; Methadone Screen,Urine Negative; Opiate Screen,Urine Negative
[2021-09-21 04:55] LABS: Cannabinoid Screen,Urine Positive
--- NOTE | 2021-09-21 05:14 | Ultrasound Report ---
ULTRASOUND ABDOMEN, LIMITED INDICATION / CLINICAL INFORMATION: RUQ pain, eval for acute cholecystitis. COMPARISON: CT earlier the same day. FINDINGS: PANCREAS: Visualized portion shows no significant abnormality. LIVER: No significant abnormality. Normal hepatopedal blood flow in the main portal vein. GALLBLADDER: Multiple gallstones. No wall thickening. BILE DUCTS: No significant abnormality. Common bile duct measures 2.7 mm. FREE FLUID: None. ADDITIONAL FINDINGS: None. IMPRESSION: 1. Multiple gallstones. 2. No wall thickening or biliary dilatation. Signer Name: Jesus Sanford MD Signed: 09/21/2021 5:09 AM Workstation Name: [id number]
[2021-09-21] MEDS ORDERED: DEXTROSE 50% IN WATER (25GM) 50 ML SYRINGE IV PRN (08:58)
[2021-09-21] MEDS ORDERED: hydrALAZINE 20 MG/1 ML INJ IV PRN (09:01)
--- NOTE | 2021-09-21 09:01 | History and Physical Report ---
History of Present Illness History of present illness: HPI: 46yo F with pmhx Morbid obesity, HTN, DM2, HPV presenting to our facility for evaluation for worsening 10 out of 10 abdominal pain of 4 to 5-day duration. Patient was seen in the emergency department 2 weeks ago for similar problems and was told that she had gallbladder issues as well as a hernia. At the time the patient was discharged and told to follow-up outpatient. Patient sy mptomology has worsened since then. She states that she has severe nausea and vomiting and she is unable to eat food without severe biliary colic. She states that she has had diarrhea associated with the symptoms. She denied any hematemesis, melena, hematochezia. Remainder of ROS negative except for stated above PMHx: Morbid obesity, HTN, DM2, HPV PSHx: x3, history of trach as child (no longer has)/tests chest tube/abdominal debridement in past FHx: Angioedema in mother and father SHx: Tobacco use-current everyday smoker ETOH Use-denies Recreational Drug Use-admits to THC use Medications and Allergies Allergies Allergy/AdvReac Type Severity Reaction Status Date / Time egg Allergy Nausea Verified 05/19/18 09:16 Penicillins Allergy Nausea Verified 05/19/18 09:16 Home Medications Medication Instructions Recorded Confirmed Last Taken Type Ferrous Sulfate [Feosol 325 MG tab] 325 mg PO BID 30 Days #60 tablet 05/20/18 Unknown Rx Ibuprofen [Ibuprofen 800] 800 mg PO Q6H PRN 10 Days #20 05/20/18 Unknown Rx tablet MDD 3200mg megestroL [Megace] 40 mg PO DAILY 5 Days #5 tablet 05/20/18 Unknown Rx HYDROcodone/APAP 5-325 [[place] 1 each PO Q6H PRN #14 tablet 05/22/18 Unknown Rx 5-325 mg TAB] Insulin Glargine [Lantus VIAL] 16 units SUB-Q QHS 30 Days units 05/22/18 Unknown Rx hydroCHLOROthiazide [HCTZ] 25 mg PO QDAY #30 tablet 05/22/18 Unknown Rx levoFLOXacin [Levaquin] 750 mg PO QDAY #7 tablet 05/22/18 Unknown Rx lisinopriL [Zestril TAB] 40 mg PO QDAY #30 tablet 05/22/18 Unknown Rx metFORMIN 500 mg PO DAILY #30 05/22/18 Unknown Rx metroNIDAZOLE [Flagyl] 500 mg PO Q8HR #21 tablet 05/22/18 Unknown Rx Dicyclomine [Bentyl] 10 mg PO QID #30 capsule 09/05/21 Unknown Rx Omeprazole 20 mg PO DAILY #30 09/05/21 Unknown Rx Review of Systems All systems: negative (Except for stated in HPI) Exam - Physical Exam Narrative exam: Physical Exam: VITAL SIGNS: Reviewed. GENERAL: The patient appears normally developed, Vital signs as documented. Obese HEAD: No signs of head trauma. EYES: Pupils are equal. Extraocular motions intact. EARS: Hearing grossly intact. MOUTH: Oropharynx is normal. NECK: No adenopathy, no JVD. CHEST: Chest with clear breath sounds bilaterally. No wheezes, rales, or rhonchi. CARDIAC: Regular rate and rhythm. S1 and S2, without murmurs, gallops, or rubs. VASCULAR: No Edema. Peripheral pulses normal and equal in all extremities. ABDOMEN: Tenderness to palpation in right upper quadrant. Bowel Sounds normal. MUSCULOSKELETAL: Good range of motion of all major joints. Extremities without clubbing, cyanosis or edema. NEUROLOGIC EXAM: Alert and oriented x 4. no focal sensory or strength deficits. PSYCHIATRIC: Mood normal. SKIN: detail exam as documented in skin assessment - Constitutional Vitals: Temp Pulse Resp BP Pulse Ox 98.0 F 96 H 15 204/105 99 09/20/21 20:13 09/21/21 08:52 09/21/21 08:52 09/21/21 08:52 09/21/21 08:52 HEART Score - HEART Score Troponin: Troponin T < 0.010 ng/mL (0.00-0.029) 09/21/21 02:01 Results - Labs CBC & Chem 7: 09/21/21 02:01 09/21/21 02:01 Labs: Laboratory Last Values WBC 9.2 K/mm3 (4.5-11.0) 09/21/21 02:01 RBC 3.96 M/mm3 (3.65-5.03) 09/21/21 02:01 Hgb 12.2 gm/dl (10.1-14.3) 09/21/21 02:01 Hct 36.7 % (30.3-42.9) 09/21/21 02:01 MCV 93 fl (79-97) 09/21/21 02:01 MCH 31 pg (28-32) 09/21/21 02:01 MCHC 33 % (30-34) 09/21/21 02:01 RDW 13.0 % (13.2-15.2) L 09/21/21 02:01 Plt Count 344 K/mm3 (140-440) 09/21/21 02:01 Lymph % (Auto) 32.1 % (13.4-35.0) 09/21/21 02:01 [place] % (Auto) 6.1 % (0.0-7.3) 09/21/21 02:01 Eos % (Auto) 0.9 % (0.0-4.3) 09/21/21 02:01 Baso % (Auto) 0.4 % (0.0-1.8) 09/21/21 02:01 Lymph # (Auto) 3.0 K/mm3 (1.2-5.4) 09/21/21 02:01 [place] # (Auto) 0.6 K/mm3 (0.0-0.8) 09/21/21 02:01 Eos # (Auto) 0.1 K/mm3 (0.0-0.4) 09/21/21 02:01 Baso # (Auto) 0.0 K/mm3 (0.0-0.1) 09/21/21 02:01 Seg Neutrophils % 60.5 % (40.0-70.0) 09/21/21 02:01 Seg Neutrophils # 5.6 K/mm3 (1.8-7.7) 09/21/21 02:01 Sodium 138 mmol/L (137-145) 09/21/21 02:01 Potassium 4.0 mmol/L (3.6-5.0) 09/21/21 02:01 Chloride 103.5 mmol/L (98-107) 09/21/21 02:01 Carbon Dioxide 23 mmol/L (22-30) 09/21/21 02:01 Anion Gap 16 mmol/L 09/21/21 02:01 BUN 17 mg/dL (7-17) 09/21/21 02:01 Creatinine 0.8 mg/dL (0.6-1.2) 09/21/21 02:01 Estimated GFR > 60 ml/min 09/21/21 02:01 BUN/Creatinine Ratio 21 % 09/21/21 02:01 Glucose 240 mg/dL (65-100) H 09/21/21 02:01 Calcium 9.3 mg/dL (8.4-10.2) 09/21/21 02:01 Total Bilirubin 0.20 mg/dL (0.1-1.2) 09/21/21 02:01 AST 12 units/L (5-40) 09/21/21 02:01 ALT 9 units/L (7-56) 09/21/21 02:01 Alkaline Phosphatase 81 units/L (35-129) 09/21/21 02:01 Troponin T < 0.010 ng/mL (0.00-0.029) 09/21/21 02:01 Total Protein 7.0 g/dL (6.3-8.2) 09/21/21 02:01 Albumin 3.3 g/dL (3.9-5) L 09/21/21 02:01 Albumin/Globulin Ratio 0.9 % 09/21/21 02:01 Lipase 95 units/L (13-60) H 09/21/21 02:01 HCG, Qual Negative (Negative) 09/21/21 02:57 Urine Opiates Screen Negative 09/21/21 04:20 Urine Methadone Screen Negative 09/21/21 04:20 Ur Barbiturates Screen Negative 09/21/21 04:20 Ur Phencyclidine Scrn Negative 09/21/21 04:20 Ur Amphetamines Screen Negative 09/21/21 04:20 U Benzodiazepines Scrn Negative 09/21/21 04:20 Urine Cocaine Screen Negative 09/21/21 04:20 U Marijuana (THC) Screen Positive 09/21/21 04:20 Drugs of Abuse Note Disclamer 09/21/21 04:20 Assessment and Plan Assessment and plan: Assessment and Plan: #Biliary colic #Abdominal pain #Cholelithiasis #Abdominal pain #Ventral hernia #Umbillical hernia -hCG negative -Clear liquid diet -Zofran IV as needed, morphine IV as needed -CT abdomen pelvis demonstrates ventral and umbilical hernia -Ultrasound abdomen gallbladder stones -Dr. Jalloh consulted for cholecystectomy, will take to OR tomorrow. - RCRI: 1pt, Class II risk, 6% 30 day risk ,mi,cardiac arrest. Ordered ECHO to characterize cardiac function per surgical request -N.p.o. midnight #Hypertensive emergency #Essential HTN -Blood pressure elevated 207/109 on bedside monitor -IV hydralazine and IV labetalol as needed -Started on Norvasc 10 mg p.o. daily -Started on hydralazine 100 mg p.o. 3 times daily #Type 2 Diabetes with Hyperglycemia - hemoglobin A1c: unclear, ordered - home regimen: Metformin however noncompliant - current regimen: Moderate SSI - blood glucose goal 140-180 while inpatient - continue to monitor #Medication noncompliance # Nicotine Abuse. #THC abuse -Occasional cigarette use - behavioral health counseling administered which included education on benefits of smoking cessation as well as options for quitting. +15 min. #Morbid Obesity - BMI 47 - Counseled patient on the importance of weight loss, incorporating exercise, and dietary changes (lean meats, fresh fruits and vegetables, and water intake). Patient expresses understanding. - Time: +15 min #Advance care planning Disease education conducted, care plan discussed, diagnoses discussed, prognosis discussed, patient is full code, patient acknowledges understanding and agree with care plan, discussed about patient clinical course and answered all questions to satisfaction. +30 minutes. +30 minutes.
[2021-09-21] MEDS: INSULIN LISPRO 100 UNIT/ML SUB-Q SCH ×2 (11:35→18:59)
[2021-09-21 11:38] LABS: HCG Qualitative,Urine Negative (Negative)
[2021-09-21] MEDS: amLODIPine 10 MG TAB PO SCH (15:09)
[2021-09-21] MEDS: hydrALAZINE 100 MG TAB PO SCH ×2 (15:10→20:16)
[2021-09-21] MEDS: MORPHINE 2 MG/1 ML INJ IV PRN (20:17)
[2021-09-21] MEDS: ONDANSETRON 4 MG/2 ML INJ IV PRN (20:22)
[2021-09-22] MEDS: INSULIN LISPRO 100 UNIT/ML SUB-Q SCH ×6 (01:29→22:55)
[2021-09-22 03:49] LABS: Basophils # (Auto) 0.2 K/mm3 (0.0-0.1); Basophils % (Auto) 1.8 % (0.0-1.8); Eosinophils # (Auto) 0.1 K/mm3 (0.0-0.4); Eosinophils % (Auto) 1.1 % (0.0-4.3); Hematocrit 34.6 % (30.3-42.9); Hemoglobin 11.5 gm/dl (10.1-14.3); Lymphocytes # (Auto) 2.2 K/mm3 (1.2-5.4); Mean Corpuscular HGB Conc 33 % (30-34); Mean Corpuscular Volume 93 fl (79-97); Monocytes # (Auto) 0.6 K/mm3 (0.0-0.8); Monocytes % (Auto) 4.9 % (0.0-7.3); Platelet Count 341 K/mm3 (140-440); Red Blood Count 3.74 M/mm3 (3.65-5.03); Red Cell Distribution Width 13.2 % (13.2-15.2)
[2021-09-22 04:07] LABS: Alanine Aminotransferase 8 units/L (7-56); Albumin 3.2 g/dL (3.9-5); BUN/Creatinine Ratio 19; Blood Urea Nitrogen 15 mg/dL (7-17); Calcium 9.2 mg/dL (8.4-10.2); Hemolysis Index 6
--- NOTE | 2021-09-22 07:45 | Progress Note ---
Assessment and Plan Assessment and plan: HPI: 46yo F with pmhx Morbid obesity, HTN, DM2, HPV presenting to our facility for evaluation for worsening 10 out of 10 abdominal pain of 4 to 5-day duration. Patient was seen in the emergency department 2 weeks ago for similar problems and was told that she had gallbladder issues as well as a hernia. At the time the patient was discharged and told to follow-up outpatient. Patient symptomology has worsened since then. She states that she has severe nausea and vomiting and she is unable to eat food without severe biliary colic. She states that she has had diarrhea associated with the symptoms. She denied any hematemesis, melena, hematochezia. Remainder of ROS negative except for stated above Hospital Course: 09/22: Blood pressure optimized. NPO. OR today with Dr. Jalloh for roman. Assessment and Plan: #Biliary colic #Abdominal pain #Cholelithiasis #Abdominal pain #Ventral hernia #Umbillical hernia -hCG negative -Clear liquid diet -Zofran IV as needed, morphine IV as needed -CT abdomen pelvis demonstrates ventral and umbilical hernia -Ultrasound abdomen gallbladder stones -Dr. Jalloh consulted for cholecystectomy, will take to OR tomorrow. - RCRI: 1pt, Class II risk, 6% 30 day risk ,mi,cardiac arrest. Ordered ECHO to characterize cardiac function per surgical request -N.p.o. midnight #Hypertensive emergency #Essential HTN -Blood pressure elevated 207/109 on bedside monitor -IV hydralazine and IV labetalol as needed -Started on Norvasc 10 mg p.o. daily -Started on hydralazine 100 mg p.o. 3 times daily #Type 2 Diabetes with Hyperglycemia - hemoglobin A1c: unclear, ordered - home regimen: Metformin however noncompliant - current regimen: Moderate SSI - blood glucose goal 140-180 while inpatient - continue to monitor #Medication noncompliance # Nicotine Abuse. #THC abuse -Occasional cigarette use - behavioral health counseling administered which included education on benefits of smoking cessation as well as options for quitting. +15 min. #Morbid Obesity - BMI 47 - Counseled patient on the importance of weight loss, incorporating exercise, and dietary changes (lean meats, fresh fruits and vegetables, and water intake). Patient expresses understanding. - Time: +15 min #Advance care planning Disease education conducted, care plan discussed, diagnoses discussed, prognosis discussed, patient is full code, patient acknowledges understanding and agree with care plan, discussed about patient clinical course and answered all questions to satisfaction. +30 minutes. +30 minutes. History Interval history: Still some moderate abdominal pain reported on encounte by the patient. Hospitalist Physical - Physical exam Narrative exam: Physical Exam: VITAL SIGNS: Reviewed. GENERAL: The patient appears normally developed, Vital signs as documented. Obese HEAD: No signs of head trauma. EYES: Pupils are equal. Extraocular motions intact. EARS: Hearing grossly intact. MOUTH: Oropharynx is normal. NECK: No adenopathy, no JVD. CHEST: Chest with clear breath sounds bilaterally. No wheezes, rales, or rhonchi. CARDIAC: Regular rate and rhythm. S1 and S2, without murmurs, gallops, or rubs. VASCULAR: No Edema. Peripheral pulses normal and equal in all extremities. ABDOMEN: Tenderness to palpation in right upper quadrant. Bowel Sounds normal. MUSCULOSKELETAL: Good range of motion of all major joints. Extremities without clubbing, cyanosis or edema. NEUROLOGIC EXAM: Alert and oriented x 4. no focal sensory or strength deficits. PSYCHIATRIC: Mood normal. SKIN: detail exam as documented in skin assessment - Constitutional Vitals: Temp Pulse Resp BP Pulse Ox 98.0 F 91 H 12 181/86 99 09/20/21 20:13 09/21/21 19:01 09/21/21 19:01 09/21/21 19:01 09/21/21 19:01 HEART Score - HEART Score Troponin: Troponin T < 0.010 ng/mL (0.00-0.029) 09/21/21 02:01 Results - Labs CBC & Chem 7: 09/22/21 02:39 09/22/21 02:39 Labs: Laboratory Last Values WBC 11.3 K/mm3 (4.5-11.0) H 09/22/21 02:39 RBC 3.74 M/mm3 (3.65-5.03) 09/22/21 02:39 Hgb 11.5 gm/dl (10.1-14.3) 09/22/21 02:39 Hct 34.6 % (30.3-42.9) 09/22/21 02:39 MCV 93 fl (79-97) 09/22/21 02:39 MCH 31 pg (28-32) 09/22/21 02:39 MCHC 33 % (30-34) 09/22/21 02:39 RDW 13.2 % (13.2-15.2) 09/22/21 02:39 Plt Count 341 K/mm3 (140-440) 09/22/21 02:39 Lymph % (Auto) 19.0 % (13.4-35.0) 09/22/21 02:39 [place] % (Auto) 4.9 % (0.0-7.3) 09/22/21 02:39 Eos % (Auto) 1.1 % (0.0-4.3) 09/22/21 02:39 Baso % (Auto) 1.8 % (0.0-1.8) 09/22/21 02:39 Lymph # (Auto) 2.2 K/mm3 (1.2-5.4) 09/22/21 02:39 [place] # (Auto) 0.6 K/mm3 (0.0-0.8) 09/22/21 02:39 Eos # (Auto) 0.1 K/mm3 (0.0-0.4) 09/22/21 02:39 Baso # (Auto) 0.2 K/mm3 (0.0-0.1) H 09/22/21 02:39 Seg Neutrophils % 73.2 % (40.0-70.0) H 09/22/21 02:39 Seg Neutrophils # 8.3 K/mm3 (1.8-7.7) H 09/22/21 02:39 Sodium 141 mmol/L (137-145) 09/22/21 02:39 Potassium 4.3 mmol/L (3.6-5.0) 09/22/21 02:39 Chloride 106.0 mmol/L (98-107) 09/22/21 02:39 Carbon Dioxide 23 mmol/L (22-30) 09/22/21 02:39 Anion Gap 16 mmol/L 09/22/21 02:39 BUN 15 mg/dL (7-17) 09/22/21 02:39 Creatinine 0.8 mg/dL (0.6-1.2) 09/22/21 02:39 Estimated GFR > 60 ml/min 09/22/21 02:39 BUN/Creatinine Ratio 19 % 09/22/21 02:39 Glucose 164 mg/dL (65-100) H 09/22/21 02:39 POC Glucose 133 mg/dL (70-105) H 09/22/21 01:10 Calcium 9.2 mg/dL (8.4-10.2) 09/22/21 02:39 Total Bilirubin 0.40 mg/dL (0.1-1.2) 09/22/21 02:39 AST 9 units/L (5-40) 09/22/21 02:39 ALT 8 units/L (7-56) 09/22/21 02:39 Alkaline Phosphatase 71 units/L (35-129) 09/22/21 02:39 Troponin T < 0.010 ng/mL (0.00-0.029) 09/21/21 02:01 Total Protein 7.0 g/dL (6.3-8.2) 09/22/21 02:39 Albumin 3.2 g/dL (3.9-5) L 09/22/21 02:39 Albumin/Globulin Ratio 0.8 % 09/22/21 02:39 Lipase 95 units/L (13-60) H 09/21/21 02:01 HCG, Qual Negative (Negative) 09/21/21 02:57 Urine HCG, Qual Negative (Negative) 09/21/21 09:00 Urine Opiates Screen Negative 09/21/21 04:20 Urine Methadone Screen Negative 09/21/21 04:20 Ur Barbiturates Screen Negative 09/21/21 04:20 Ur Phencyclidine Scrn Negative 09/21/21 04:20 Ur Amphetamines Screen Negative 09/21/21 04:20 U Benzodiazepines Scrn Negative 09/21/21 04:20 Urine Cocaine Screen Negative 09/21/21 04:20 U Marijuana (THC) Screen Positive 09/21/21 04:20 Drugs of Abuse Note Disclamer 09/21/21 04:20 Active Medications - Current Medications Current Medications: Generic Name Dose Route Start Last Admin Trade Name Freq PRN Reason Stop Dose Admin Acetaminophen 650 mg 09/21/21 08:56 Acetaminophen 325 Mg Tab PO Q4H PRN Pain MILD(1-3)/Fever >100.5/ROGERS Amlodipine Besylate 10 mg 09/21/21 15:00 09/21/21 15:09 Amlodipine 10 Mg Tab PO 10 mg QDAY KARYN Administration Dextrose 50 ml 09/21/21 08:58 Dextrose 50% In Water (25gm) 50 Ml Syringe IV Q30MIN PRN Hypoglycemia Protocol Hydralazine HCl 10 mg 09/21/21 09:01 09/21/21 09:59 Hydralazine 20 Mg/1 Ml Inj IV 10 mg Q4HR PRN Administration sbp>160 Hydralazine HCl 100 mg 09/21/21 15:00 09/21/21 20:16 Hydralazine 100 Mg Tab PO 100 mg TID KARYN Administration Insulin Human Lispro 0 unit 09/21/21 11:30 09/22/21 01:29 Insulin Lispro 100 Unit/Ml SUB-Q Not Given ACHS [facility] Protocol Labetalol HCl 10 mg 09/21/21 09:01 09/21/21 09:58 Labetalol 20 Mg/4 Ml Inj IV 10 mg Q4HR PRN Administration sbp>160 Morphine Sulfate 2 mg 09/21/21 08:56 09/21/21 20:17 Morphine 2 Mg/1 Ml Inj IV 2 mg Q4H PRN Administration Pain, Moderate (4-6) Ondansetron HCl 4 mg 09/21/21 08:56 09/21/21 20:22 Ondansetron 4 Mg/2 Ml Inj IV 4 mg Q8H PRN Administration Nausea And Vomiting Sodium Chloride 10 ml 09/21/21 10:00 09/22/21 01:31 Sodium Chloride 0.9% 10 Ml Flush Syringe IV 10 ml BID KARYN Administration Sodium Chloride 10 ml 09/21/21 08:56 Sodium Chloride 0.9% 10 Ml Flush Syringe IV PRN PRN LINE FLUSH
[2021-09-22] MEDS: ACETAMINOPHEN 325 MG TAB PO PRN (07:55)
[2021-09-22] MEDS: hydrALAZINE 100 MG TAB PO SCH ×3 (08:06→21:13)
--- NOTE | 2021-09-22 09:23 | Consultation ---
History of Present Illness Consult date: 09/21/21 Reason for consult: abdominal pain - History of present illness History of present illness: 46yo F with pmhx Morbid obesity, HTN, DM2, HPV presenting to our facility for evaluation for worsening 10 out of 10 abdominal pain of 4 to 5-day duration. Patient was seen in the emergency department 2 weeks ago for similar problems and was told that she had gallbladder issues as well as a hernia. At the time the patient was discharged and told to follow-up outpatient. Patient symptomology has worsened since then. She states that she has severe nausea and vomiting and she is unable to eat food without severe biliary colic. She states that she has had diarrhea associated with the symptoms. She denied any hematemesis, melena, hematochezia. Remainder of ROS negative except for stated above Ultrasound of the gallbladder positive for multiple small stones and sludge. Medications and Allergies Allergies Allergy/AdvReac Type Severity Reaction Status Date / Time egg Allergy Nausea Verified 05/19/18 09:16 Penicillins Allergy Nausea Verified 05/19/18 09:16 Home Medications Medication Instructions Recorded Confirmed Last Taken Type Ferrous Sulfate [Feosol 325 MG tab] 325 mg PO BID 30 Days #60 tablet 05/20/18 Unknown Rx Ibuprofen [Ibuprofen 800] 800 mg PO Q6H PRN 10 Days #20 05/20/18 Unknown Rx tablet MDD 3200mg megestroL [Megace] 40 mg PO DAILY 5 Days #5 tablet 05/20/18 Unknown Rx HYDROcodone/APAP 5-325 [[place] 1 each PO Q6H PRN #14 tablet 05/22/18 Unknown Rx 5-325 mg TAB] Insulin Glargine [Lantus VIAL] 16 units SUB-Q QHS 30 Days units 05/22/18 Unknown Rx hydroCHLOROthiazide [HCTZ] 25 mg PO QDAY #30 tablet 05/22/18 Unknown Rx levoFLOXacin [Levaquin] 750 mg PO QDAY #7 tablet 05/22/18 Unknown Rx lisinopriL [Zestril TAB] 40 mg PO QDAY #30 tablet 05/22/18 Unknown Rx metFORMIN 500 mg PO DAILY #30 05/22/18 Unknown Rx metroNIDAZOLE [Flagyl] 500 mg PO Q8HR #21 tablet 05/22/18 Unknown Rx Dicyclomine [Bentyl] 10 mg PO QID #30 capsule 06/28/22 Unknown Rx Omeprazole 20 mg PO DAILY #30 09/05/21 Unknown Rx Active Meds: Active Medications Acetaminophen (Acetaminophen 325 Mg Tab) 650 mg PO Q4H PRN PRN Reason: Pain MILD(1-3)/Fever >100.5/ROGERS Last Admin: 09/22/21 07:55 Dose: 650 mg Amlodipine Besylate (Amlodipine 10 Mg Tab) 10 mg PO QDAY [facility] Last Admin: 09/21/21 15:09 Dose: 10 mg Dextrose (Dextrose 50% In Water (25gm) 50 Ml Syringe) 50 ml IV Q30MIN PRN; Protocol PRN Reason: Hypoglycemia Hydralazine HCl (Hydralazine 20 Mg/1 Ml Inj) 10 mg IV Q4HR PRN PRN Reason: sbp>160 Last Admin: 09/21/21 09:59 Dose: 10 mg Hydralazine HCl (Hydralazine 100 Mg Tab) 100 mg PO TID [facility] Last Admin: 09/22/21 08:06 Dose: 100 mg Insulin Human Lispro (Insulin Lispro 100 Unit/Ml) 0 unit SUB-Q ACHS [facility]; Protocol Last Admin: 09/22/21 07:52 Dose: 2 unit Labetalol HCl (Labetalol 20 Mg/4 Ml Inj) 10 mg IV Q4HR PRN PRN Reason: sbp>160 Last Admin: 09/21/21 09:58 Dose: 10 mg Morphine Sulfate (Morphine 2 Mg/1 Ml Inj) 2 mg IV Q4H PRN PRN Reason: Pain, Moderate (4-6) Last Admin: 09/21/21 20:17 Dose: 2 mg Ondansetron HCl (Ondansetron 4 Mg/2 Ml Inj) 4 mg IV Q8H PRN PRN Reason: Nausea And Vomiting Last Admin: 09/21/21 20:22 Dose: 4 mg Sodium Chloride (Sodium Chloride 0.9% 10 Ml Flush Syringe) 10 ml IV BID [facility] Last Admin: 09/22/21 01:31 Dose: 10 ml Sodium Chloride (Sodium Chloride 0.9% 10 Ml Flush Syringe) 10 ml IV PRN PRN PRN Reason: LINE FLUSH Exam Vital Signs Temp Pulse Resp BP Pulse Ox 98.0 F 105 H 18 243/145 99 09/20/21 20:13 09/20/21 20:13 09/20/21 20:13 09/20/21 20:13 09/20/21 20:13 - General physical appearance Positive: well developed - Eyes Positive: PERRL - Neck Positive: no masses, no bruits, trachea midline, other (Patient with a prior tracheostomy) - Respiratory Positive: normal expansion - Cardiovascular Rhythm: regular - Extremities Extremities: no ischemia, No edema - Abdomen Abdomen: Present: soft, tender, surgical scars (Low midline incision under pannus). Absent: guarding, rigid Hernia: umbilical (Umbilical hernia is tender to palpation) - Neurologic Neurologic: alert and oriented to time, place and person, motor strength and sensation are grossly intact, CN II-XII intact Results - Labs 09/22/21 02:39 09/22/21 02:39 Abnormal lab results 09/21/21 09/21/21 09/22/21 Range/Units 11:54 18:58 01:10 WBC (4.5-11.0) K/mm3 Baso # (Auto) (0.0-0.1) K/mm3 Seg Neutrophils % (40.0-70.0) % Seg Neutrophils # (1.8-7.7) K/mm3 Glucose (65-100) mg/dL POC Glucose 229 H 200 H 133 H (70-105) mg/dL Albumin (3.9-5) g/dL 09/22/21 09/22/21 09/22/21 Range/Units 02:39 02:39 07:50 WBC 11.3 H (4.5-11.0) K/mm3 Baso # (Auto) 0.2 H (0.0-0.1) K/mm3 Seg Neutrophils % 73.2 H (40.0-70.0) % Seg Neutrophils # 8.3 H (1.8-7.7) K/mm3 Glucose 164 H (65-100) mg/dL POC Glucose 182 H (70-105) mg/dL Albumin 3.2 L (3.9-5) g/dL Diabetes panel 09/22/21 Range/Units 02:39 Sodium 141 (137-145) mmol/L Potassium 4.3 (3.6-5.0) mmol/L Chloride 106.0 (98-107) mmol/L Carbon Dioxide 23 (22-30) mmol/L BUN 15 (7-17) mg/dL Creatinine 0.8 (0.6-1.2) mg/dL Glucose 164 H (65-100) mg/dL Calcium 9.2 (8.4-10.2) mg/dL AST 9 (5-40) units/L ALT 8 (7-56) units/L Alkaline Phosphatase 71 (35-129) units/L Total Protein 7.0 (6.3-8.2) g/dL Albumin 3.2 L (3.9-5) g/dL Calcium panel 09/22/21 Range/Units 02:39 Calcium 9.2 (8.4-10.2) mg/dL Albumin 3.2 L (3.9-5) g/dL Pituitary panel 09/22/21 Range/Units 02:39 Sodium 141 (137-145) mmol/L Potassium 4.3 (3.6-5.0) mmol/L Chloride 106.0 (98-107) mmol/L Carbon Dioxide 23 (22-30) mmol/L BUN 15 (7-17) mg/dL Creatinine 0.8 (0.6-1.2) mg/dL Glucose 164 H (65-100) mg/dL Calcium 9.2 (8.4-10.2) mg/dL Adrenal panel 09/22/21 Range/Units 02:39 Sodium 141 (137-145) mmol/L Potassium 4.3 (3.6-5.0) mmol/L Chloride 106.0 (98-107) mmol/L Carbon Dioxide 23 (22-30) mmol/L BUN 15 (7-17) mg/dL Creatinine 0.8 (0.6-1.2) mg/dL Glucose 164 H (65-100) mg/dL Calcium 9.2 (8.4-10.2) mg/dL Total Bilirubin 0.40 (0.1-1.2) mg/dL AST 9 (5-40) units/L ALT 8 (7-56) units/L Alkaline Phosphatase 71 (35-129) units/L Total Protein 7.0 (6.3-8.2) g/dL Albumin 3.2 L (3.9-5) g/dL Assessment and Plan Patient with symptomatic gallstones and with a umbilical hernia that is with incarcerated omentum. Patient will be admitted and on clear liquids until midnight. Plan to do robotic cholecystectomy in a.m.
[2021-09-22] MEDS: amLODIPine 10 MG TAB PO SCH (09:47)
[2021-09-22] MEDS ORDERED: LACTATED RINGERS 1,000 ML ONE (13:22)
[2021-09-22] MEDS ORDERED: LIDOCAINE MPF (2%) 20 MG/1 ML VIAL 5 ML ONE (13:32)
[2021-09-22] MEDS ORDERED: ROCURONIUM 50 MG/5 ML INJ IV ONE ×2 (13:32→17:15)
[2021-09-22] MEDS ORDERED: fentaNYL 100 MCG/2 ML INJ ONE ×2 (13:32→16:15)
[2021-09-22] MEDS ORDERED: propofoL 200 MG/20 ML VIAL IV ONE (13:33)
[2021-09-22] MEDS ORDERED: BUPIVACAINE/PF (0.5%) 5 MG/1 ML 30 ML VIAL INFILTRATI ONE ×3 (13:37→17:18)
[2021-09-22] MEDS ORDERED: LIDOCAINE (1%) 10 MG/1 ML VIAL 20 ML MDV ONE ×2 (13:37→16:59)
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
--- NOTE | 2021-09-22 14:13 | Anesthesia Day of Surgery ---
Anesthesia Day of Surgery - Day of Surgery Patient Examined: Yes Patient H&P Reviewed: Yes Patient is NPO: Yes
[2021-09-22] MEDS: MAGNESIUM OXIDE 400 MG TAB PO SCH (14:30)
[2021-09-22] MEDS: LACTATED RINGERS 1,000 ML IV SCH (14:30)
[2021-09-22] MEDS ORDERED: GABAPENTIN 300 MG CAP PO NR (15:00)
[2021-09-22] MEDS ORDERED: MIDAZOLAM 2 MG/2 ML INJ IV NR (15:00)
[2021-09-22] MEDS ORDERED: ACETAMINOPHEN 500 MG TAB PO ONE (15:30)
[2021-09-22] MEDS ORDERED: VANCOMYCIN/NS 1 GM/250 ML 1 GM/250 ML BAG IV NR (16:00)
[2021-09-22] MEDS ORDERED: MIDAZOLAM 2 MG/2 ML INJ ONE (16:15)
[2021-09-22] MEDS ORDERED: VANCOMYCIN 2,000 MG in SODIUM CHLORIDE 0.9% 500 ML 500 ML IV NR (16:30)
[2021-09-22] MEDS ORDERED: SODIUM CHLORIDE 0.9% IRR 1,000 ML BOTTLE IR ONE (17:18)
[2021-09-22] MEDS ORDERED: LIDOCAINE (1%) 10 MG/1 ML VIAL 20 ML MDV INFILTRATI ONE (17:19)
[2021-09-22] MEDS ORDERED: KETOROLAC 30 MG/1 ML INJ ONE (17:35)
[2021-09-22] MEDS ORDERED: ONDANSETRON 4 MG/2 ML INJ ONE (17:35)
[2021-09-22] MEDS ORDERED: HYDROmorphone 0.5 MG/0.5 ML INJ ONE (17:50)
[2021-09-22] MEDS ORDERED: SUGAMMADEX SODIUM 200 MG/2 ML VIAL IV ONE (17:51)
--- NOTE | 2021-09-22 18:35 | Post Operative Note ---
Pre-op diagnosis: Acute cholecystitis and ventral hernia with incarcerated omentum Post-op diagnosis: same Findings: Acute cholecystitis with incarcerated omentum and smaller ventral hernia in the upper midline Procedure: Laparoscopic exploration lysis of adhesion reduction of omental incarceration. Laparoscopic cholecystectomy. Suture repair of umbilical hernia and the satellite ventral hernia in the upper midline. Anesthesia: ANTONI Surgeon: LELAND MARTINEZ Animal Husbandman: TIMOTHY HERNÁNDEZ Estimated blood loss: minimal Pathology: list (Gallbladder and stones) Specimen disposition: to lab Condition: stable Disposition: floor
[2021-09-22] MEDS ORDERED: HYDROmorphone 0.5 MG/0.5 ML INJ IV PRN (19:40)
--- NOTE | 2021-09-22 19:57 | Post Anesthesia Evaluation ---
- Post Anesthesia Evaluation Patient Participated: Yes Airway Patent: Yes Stable Respiratory Function: Yes Nausea/Vomiting: No Temp > 96.8F: Yes Pain Manageable: Yes Adequeate Hydration: Yes Anesthesia Complications: No Block Receding Appropriately: Not Applicable Patient on Ventilator: No
[2021-09-22] MEDS: MORPHINE 2 MG/1 ML INJ IV PRN (21:12)
[2021-09-23] MEDS: MORPHINE 2 MG/1 ML INJ IV PRN ×2 (02:26→09:37)
[2021-09-23] MEDS: LACTATED RINGERS 1,000 ML IV SCH (05:07)
--- NOTE | 2021-09-23 08:34 | Operative Report ---
Operative Report Operative Report: Date: 09/22/2021 Preop diagnosis: cholecystitis with cholelithiasis and ventral hernia with incarcerated omentum Postop diagnosis: same Procedure: Laparoscopic cholecystectomy without cholangiogram with lysis of adhesion reduction of incarceration and repair of ventral hernia Surgeon: Dr. Jalloh Treater: Dr. John Anesthesia type: General endotracheal anesthesia Estimated blood loss: 10 cc Specimen: Gallbladder and stone Procedure: Patient is taken to the OR and after timeout are completed the abdomen was prepped with ChloraPrep and draped in a sterile fashion. A 3 mm incision is made in the left upper quadrant and a varies needle is used to gain access to the peritoneal cavity. Abdomen is insufflated. A 5 mm incision is made in the right subcostal position midclavicular line. 2 additional 5 mm ports were placed one in the right lateral subcostal position and one in a supraumbilical position. In the subxiphoid position a 12 mm port is placed. Later in the case a 3rd 5mm port was placed in the luq. Attention is turned to the ventral hernia and the omental incarceration is reduced. Harmonic scalpel was used for lysis of adhesions. Gallbladder graspers are used through the right subcostal ports. The gallbladder was retracted superiorly anteriorly and laterally. The peritoneal reflection and adventitia are dissected with a harmonic scalpel to expose the cystic duct and cystic artery as well as the cystic cleft. Critical view of safety is demonstrated. The cystic artery is clipped and divided. A clip was placed on the cystic duct at its junction with the gallbladder. 3 clips were placed on the distal cystic duct. The cystic duct was then divided. The gallbladder was dissected off the gallbladder fossa It was then extracted after being placed in a specimen bag through the subxiphoid port. Hemostasis is good. The right upper quadrant irrigated with copious amounts of saline and then aspirated. Sponge and needle counts are noted to be correct at this time. A Jewel Hillman system was used to close the subxiphoid incision with an 0 Vicryl suture. It is also used to close the ventral hernia and an additional hernia that was discovered in the midline upper abdomen. The skin is closed with 4-0 Monocryl and Dermabond. Patient tolerated procedure well.
--- NOTE | 2021-09-23 08:36 | Progress Note ---
Assessment and Plan Patient with symptomatic gallstones and with a umbilical hernia that is with incarcerated omentum. Patient status post cholecystectomy and reduction of omental incarceration and open umbilical hernia with repair of the umbilical hernia on 09/22/2021. She notes some incisional pain. She is hungry. She will be advanced to a regular diet and encouraged to ambulate in the hallways today. Potential discharge tomorrow. Subjective Date of service: 09/23/21 Patient Reports: Positive: no new complaints, still having pain, pain is less, tolerating liquids well Narrative: Patient status post cholecystectomy and reduction of omental incarceration and open umbilical hernia with repair of the umbilical hernia on 09/22/2021. She notes some incisional pain. She is hungry. She will be advanced to a regular diet and encouraged to ambulate in the h allways today. Potential discharge tomorrow. Objective Vital Signs - 12hr 09/22/21 09/23/21 09/23/21 20:45 00:55 06:30 Temperature 97.4 F L 97.6 F Pulse Rate 80 105 H Respiratory 20 18 Rate Blood Pressure 164/90 Blood Pressure 155/77 [Left] O2 Sat by Pulse 99 100 98 Oximetry 09/23/21 06:36 Temperature 97.6 F Pulse Rate 98 H Respiratory 18 Rate Blood Pressure Blood Pressure 90/50 [Left] O2 Sat by Pulse 100 Oximetry - Labs 09/22/21 02:39 09/22/21 02:39
[2021-09-23] MEDS: MAGNESIUM OXIDE 400 MG TAB PO SCH (09:38)
[2021-09-23] MEDS: hydrALAZINE 100 MG TAB PO SCH ×3 (09:38→20:42)
[2021-09-23] MEDS: amLODIPine 10 MG TAB PO SCH (09:38)
[2021-09-23] MEDS: INSULIN LISPRO 100 UNIT/ML SUB-Q SCH ×4 (09:39→22:31)
[2021-09-23 11:24] LABS: Alanine Aminotransferase 22 units/L (7-56); Albumin 3.4 g/dL (3.9-5); BUN/Creatinine Ratio 18; Blood Urea Nitrogen 20 mg/dL (7-17); Calcium 8.8 mg/dL (8.4-10.2); Hemolysis Index 7
--- NOTE | 2021-09-23 12:47 | Progress Note ---
Assessment and Plan Assessment and plan: HPI: 46yo F with pmhx Morbid obesity, HTN, DM2, HPV presenting to our facility for evaluation for worsening 10 out of 10 abdominal pain of 4 to 5-day duration. Patient was seen in the emergency department 2 weeks ago for similar problems and was told that she had gallbladder issues as well as a hernia. At the time the patient was discharged and told to follow-up outpatient. Patient symptomology has worsened since then. She states that she has severe nausea and vomiting and she is unable to eat food without severe biliary colic. She states that she has had diarrhea associated with the symptoms. She denied any hematemesis, melena, hematochezia. Remainder of ROS negative except for stated above Hospital Course: 09/22: Blood pressure optimized. NPO. OR today with Dr. Jalloh for roman. 09/23: c/o abd pain after eating. encouraged to ambulate in hallways. PT consult ordered. Plan for discharge tomorrow AM. Assessment and Plan: #Biliary colic #Abdominal pain #Cholelithiasis s/p cholecystectomy #Abdominal pain #Ventral hernia #Umbillical hernia -hCG negative -Clear liquid diet -Zofran IV as needed, morphine IV as needed -CT abdomen pelvis demonstrates ventral and umbilical hernia -Ultrasound abdomen gallbladder stones -Dr. Jalloh consulted for cholecystectomy, will take to OR tomorrow. - RCRI: 1pt, Class II risk, 6% 30 day risk ,mi,cardiac arrest. Ordered ECHO to characterize cardiac function per surgical request -regular diet - s/p cholecystectomy on 09/22. - PT consultation, monitor for BM and symptomology after resuming diet. #Hypertensive emergency #Essential HTN -Blood pressure elevated 207/109 on bedside monitor -IV hydralazine and IV labetalol as needed -Started on Norvasc 10 mg p.o. daily -Started on hydralazine 100 mg p.o. 3 times daily #Type 2 Diabetes with Hyperglycemia - hemoglobin A1c: unclear, ordered - home regimen: Metformin however noncompliant - current regimen: Moderate SSI - blood glucose goal 140-180 while inpatient - continue to monitor #Medication noncompliance # Nicotine Abuse. #THC abuse -Occasional cigarette use - behavioral health counseling administered which included education on benefits of smoking cessation as well as options for quitting. +15 min. #Morbid Obesity - BMI 47 - Counseled patient on the importance of weight loss, incorporating exercise, and dietary changes (lean meats, fresh fruits and vegetables, and water intake). Patient expresses understanding. - Time: +15 min #Advance care planning Disease education conducted, care plan discussed, diagnoses discussed, prognosis discussed, patient is full code, patient acknowledges understanding and agree with care plan, discussed about patient clinical course and answered all q uestions to satisfaction. +30 minutes. +30 minutes. History Interval history: Patient seen and examined on bedside encounter. Patient states that overall d oing well postoperatively. She states that she had some difficulty with abdominal pain after attempting to eat food. She did state that the pain has subsided. She stated that overnight she did pass flatus after her surgery however she has not had a bowel movement. I encouraged the patient to ambulate today with physical therapy. Hospitalist Physical - Physical exam Narrative exam: Physical Exam: VITAL SIGNS: Reviewed. GENERAL: The patient appears normally developed, Vital signs as documented. Obese HEAD: No signs of head trauma. EYES: Pupils are equal. Extraocular motions intact. EARS: Hearing grossly intact. MOUTH: Oropharynx is normal. NECK: No adenopathy, no JVD. CHEST: Chest with clear breath sounds bilaterally. No wheezes, rales, or rhonchi. CARDIAC: Regular rate and rhythm. S1 and S2, without murmurs, gallops, or rubs. VASCULAR: No Edema. Peripheral pulses normal and equal in all extremities. ABDOMEN: Tenderness to palpation in right upper quadrant. Bowel Sounds normal. MUSCULOSKELETAL: Good range of motion of all major joints. Extremities without clubbing, cyanosis or edema. NEUROLOGIC EXAM: Alert and oriented x 4. no focal sensory or strength deficits. PSYCHIATRIC: Mood normal. SKIN: detail exam as documented in skin assessment - Constitutional Vitals: Temp Pulse Resp BP Pulse Ox 97.6 F 112 H 18 141/72 100 09/23/21 06:36 09/23/21 09:38 09/23/21 06:36 09/23/21 09:38 09/23/21 06:36 HEART Score - HEART Score Troponin: Troponin T < 0.010 ng/mL (0.00-0.029) 09/21/21 02:01 Results - Labs CBC & Chem 7: 09/22/21 02:39 09/23/21 10:43 Labs: Laboratory Last Values WBC 11.3 K/mm3 (4.5-11.0) H 09/22/21 02:39 RBC 3.74 M/mm3 (3.65-5.03) 09/22/21 02:39 Hgb 11.5 gm/dl (10.1-14.3) 09/22/21 02:39 Hct 34.6 % (30.3-42.9) 09/22/21 02:39 MCV 93 fl (79-97) 09/22/21 02:39 MCH 31 pg (28-32) 09/22/21 02:39 MCHC 33 % (30-34) 09/22/21 02:39 RDW 13.2 % (13.2-15.2) 09/22/21 02:39 Plt Count 341 K/mm3 (140-440) 09/22/21 02:39 Lymph % (Auto) 19.0 % (13.4-35.0) 09/22/21 02:39 [place] % (Auto) 4.9 % (0.0-7.3) 09/22/21 02:39 Eos % (Auto) 1.1 % (0.0-4.3) 09/22/21 02:39 Baso % (Auto) 1.8 % (0.0-1.8) 09/22/21 02:39 Lymph # (Auto) 2.2 K/mm3 (1.2-5.4) 09/22/21 02:39 [place] # (Auto) 0.6 K/mm3 (0.0-0.8) 09/22/21 02:39 Eos # (Auto) 0.1 K/mm3 (0.0-0.4) 09/22/21 02:39 Baso # (Auto) 0.2 K/mm3 (0.0-0.1) H 09/22/21 02:39 Seg Neutrophils % 73.2 % (40.0-70.0) H 09/22/21 02:39 Seg Neutrophils # 8.3 K/mm3 (1.8-7.7) H 09/22/21 02:39 Sodium 137 mmol/L (137-145) 09/23/21 10:43 Potassium 4.3 mmol/L (3.6-5.0) 09/23/21 10:43 Chloride 102.5 mmol/L (98-107) 09/23/21 10:43 Carbon Dioxide 22 mmol/L (22-30) 09/23/21 10:43 Anion Gap 17 mmol/L 09/23/21 10:43 BUN 20 mg/dL (7-17) H 09/23/21 10:43 Creatinine 1.1 mg/dL (0.6-1.2) 09/23/21 10:43 Estimated GFR > 60 ml/min 09/23/21 10:43 BUN/Creatinine Ratio 18 % 09/23/21 10:43 Glucose 252 mg/dL (65-100) H 09/23/21 10:43 POC Glucose 212 mg/dL (70-105) H 09/23/21 11:33 Calcium 8.8 mg/dL (8.4-10.2) 09/23/21 10:43 Total Bilirubin 0.40 mg/dL (0.1-1.2) 09/23/21 10:43 AST 34 units/L (5-40) 09/23/21 10:43 ALT 22 units/L (7-56) 09/23/21 10:43 Alkaline Phosphatase 76 units/L (35-129) 09/23/21 10:43 Troponin T < 0.010 ng/mL (0.00-0.029) 09/21/21 02:01 Total Protein 6.6 g/dL (6.3-8.2) 09/23/21 10:43 Albumin 3.4 g/dL (3.9-5) L 09/23/21 10:43 Albumin/Globulin Ratio 1.1 % 09/23/21 10:43 Lipase 95 units/L (13-60) H 09/21/21 02:01 HCG, Qual Negative (Negative) 09/21/21 02:57 Urine HCG, Qual Negative (Negative) 09/21/21 09:00 Urine Opiates Screen Negative 09/21/21 04:20 Urine Methadone Screen Negative 09/21/21 04:20 Ur Barbiturates Screen Negative 09/21/21 04:20 Ur Phencyclidine Scrn Negative 09/21/21 04:20 Ur Amphetamines Screen Negative 09/21/21 04:20 U Benzodiazepines Scrn Negative 09/21/21 04:20 Urine Cocaine Screen Negative 09/21/21 04:20 U Marijuana (THC) Screen Positive 09/21/21 04:20 Drugs of Abuse Note Disclamer 09/21/21 04:20 Olivarez/IV: Voiding Method External Female Catheter Active Medications - Current Medications Current Medications: Generic Name Dose Route Start Last Admin Trade Name Freq PRN Reason Stop Dose Admin Acetaminophen 650 mg 09/21/21 08:56 09/22/21 07:55 Acetaminophen 325 Mg Tab PO 650 mg Q4H PRN Administration Pain MILD(1-3)/Fever >100.5/ROGERS Amlodipine Besylate 10 mg 09/21/21 15:00 09/23/21 09:38 Amlodipine 10 Mg Tab PO 10 mg QDAY KARYN Administration Dextrose 50 ml 09/21/21 08:58 Dextrose 50% In Water (25gm) 50 Ml Syringe IV Q30MIN PRN Hypoglycemia Protocol Gabapentin 300 mg 09/22/21 15:00 09/22/21 14:30 Gabapentin 300 Mg Cap PO 09/23/21 23:59 300 mg PREOP NR Administration Hydralazine HCl 10 mg 09/21/21 09:01 09/21/21 09:59 Hydralazine 20 Mg/1 Ml Inj IV 10 mg Q4HR PRN Administration sbp>160 Hydralazine HCl 100 mg 09/21/21 15:00 09/23/21 09:38 Hydralazine 100 Mg Tab PO 100 mg TID KARYN Administration Hydromorphone HCl 0.5 mg 09/22/21 19:40 09/22/21 19:58 Hydromorphone 0.5 Mg/0.5 Ml Inj IV 09/23/21 19:39 0.5 mg Q10MIN PRN Administration Pain , Severe (7-10) Lactated Ringer's 1,000 mls @ 125 mls/hr 09/22/21 15:00 09/23/21 05:07 Lactated Ringers IV 125 mls/hr DIRECT KARYN Administration Insulin Human Lispro 0 unit 09/21/21 11:30 09/23/21 12:11 Insulin Lispro 100 Unit/Ml SUB-Q 3 unit ACHS KARYN Administration Protocol Labetalol HCl 10 mg 09/22/21 19:43 09/22/21 19:59 Labetalol 20 Mg/4 Ml Inj IV 10 mg Q4HR PRN Administration sbp>160 Magnesium Oxide 400 mg 09/22/21 15:00 09/23/21 09:38 Magnesium Oxide 400 Mg Tab PO 400 mg QDAY KARYN Administration Morphine Sulfate 2 mg 09/21/21 08:56 09/23/21 09:37 Morphine 2 Mg/1 Ml Inj IV 2 mg Q4H PRN Administration Pain, Moderate (4-6) Ondansetron HCl 4 mg 09/21/21 08:56 09/21/21 20:22 Ondansetron 4 Mg/2 Ml Inj IV 4 mg Q8H PRN Administration Nausea And Vomiting Sodium Chloride 10 ml 09/21/21 10:00 09/23/21 09:39 Sodium Chloride 0.9% 10 Ml Flush Syringe IV 10 ml BID KARYN Administration Sodium Chloride 10 ml 09/21/21 08:56 Sodium Chloride 0.9% 10 Ml Flush Syringe IV PRN PRN LINE FLUSH
[2021-09-24] MEDS: INSULIN LISPRO 100 UNIT/ML SUB-Q SCH ×4 (08:02→22:49)
--- NOTE | 2021-09-24 08:15 | Progress Note ---
Assessment and Plan Patient with symptomatic gallstones and with a umbilical hernia that is with incarcerated omentum. Patient status post cholecystectomy and reduction of omental incarceration and open umbilical hernia with repair of the umbilical hernia on 09/22/2021. She notes some incisional pain. She is hungry. Patient at the umbilical hernia site. Pain interfering with transferring safely from bed to chair for ambulation. She was not out of bed all day yesterday. We will continue to work with patient with transferring to today and discharge tomorrow Subjective Date of service: 09/24/21 Patient Reports: Positive: no new complaints, feels better, still having pain Narrative: Patient at the umbilical hernia site. Pain interfering with transferring safely from bed to chair for ambulation. She was not out of bed all day yesterday. We will continue to work with patient with transferring to today and discharge tomorrow Objective Vital Signs - 12hr 09/23/21 09/24/21 09/24/21 21:34 04:38 05:28 Temperature 98.8 F 99.0 F Pulse Rate 111 H 107 H Respiratory 16 16 16 Rate Blood Pressure 146/71 158/77 O2 Sat by Pulse 100 100 99 Oximetry - Labs 09/22/21 02:39 09/23/21 10:43 Diabetes panel 09/23/21 Range/Units 10:43 Sodium 137 (137-145) mmol/L Potassium 4.3 (3.6-5.0) mmol/L Chloride 102.5 (98-107) mmol/L Carbon Dioxide 22 (22-30) mmol/L BUN 20 H (7-17) mg/dL Creatinine 1.1 (0.6-1.2) mg/dL Glucose 252 H (65-100) mg/dL Calcium 8.8 (8.4-10.2) mg/dL AST 34 (5-40) units/L ALT 22 (7-56) units/L Alkaline Phosphatase 76 (35-129) units/L Total Protein 6.6 (6.3-8.2) g/dL Albumin 3.4 L (3.9-5) g/dL Calcium panel 09/23/21 Range/Units 10:43 Calcium 8.8 (8.4-10.2) mg/dL Albumin 3.4 L (3.9-5) g/dL Pituitary panel 09/23/21 Range/Units 10:43 Sodium 137 (137-145) mmol/L Potassium 4.3 (3.6-5.0) mmol/L Chloride 102.5 (98-107) mmol/L Carbon Dioxide 22 (22-30) mmol/L BUN 20 H (7-17) mg/dL Creatinine 1.1 (0.6-1.2) mg/dL Glucose 252 H (65-100) mg/dL Calcium 8.8 (8.4-10.2) mg/dL Adrenal panel 09/23/21 Range/Units 10:43 Sodium 137 (137-145) mmol/L Potassium 4.3 (3.6-5.0) mmol/L Chloride 102.5 (98-107) mmol/L Carbon Dioxide 22 (22-30) mmol/L BUN 20 H (7-17) mg/dL Creatinine 1.1 (0.6-1.2) mg/dL Glucose 252 H (65-100) mg/dL Calcium 8.8 (8.4-10.2) mg/dL Total Bilirubin 0.40 (0.1-1.2) mg/dL AST 34 (5-40) units/L ALT 22 (7-56) units/L Alkaline Phosphatase 76 (35-129) units/L Total Protein 6.6 (6.3-8.2) g/dL Albumin 3.4 L (3.9-5) g/dL
[2021-09-24] MEDS: hydrALAZINE 100 MG TAB PO SCH ×3 (09:07→22:02)
[2021-09-24] MEDS: MORPHINE 2 MG/1 ML INJ IV PRN (09:09)
[2021-09-24] MEDS ORDERED: INSULIN GLARGINE 100 UNITS/ML SUB-Q ONE (10:00)
[2021-09-24] MEDS: MAGNESIUM OXIDE 400 MG TAB PO SCH (11:07)
--- NOTE | 2021-09-24 12:05 | Progress Note ---
Assessment and Plan Assessment and plan: HPI: 46yo F with pmhx Morbid obesity, HTN, DM2, HPV presenting to our facility for evaluation for worsening 10 out of 10 abdominal pain of 4 to 5-day duration. Patient was seen in the emergency department 2 weeks ago for similar problems and was told that she had gallbladder issues as well as a hernia. At the time the patient was discharged and told to follow-up outpatient. Patient symptomology has worsened since then. She states that she has severe nausea and vomiting and she is unable to eat food without severe biliary colic. She states that she has had diarrhea associated with the symptoms. She denied any hematemesis, melena, hematochezia. Remainder of ROS negative except for stated above Hospital Course: 09/22: Blood pressure optimized. NPO. OR today with Dr. Jalloh for roman. 09/23: c/o abd pain after eating. encouraged to ambulate in hallways. PT consult ordered. Plan for discharge tomorrow AM. 09/24: Tolerating diet well, no complaints of nausea/vomiting however does note some abdominal pain. patient only passing flatus, no bm yet. She was not mobilized yesterday. It is imperative that the patient is ambulated and remains active post op as this will aid in recovery. Will continue to work towards safe discharge, possibly tomorrow. CM consulted for assistance with D/c planning. Assessment and Plan: #Biliary colic #Abdominal pain #Cholelithiasis s/p cholecystectomy #Abdominal pain #Ventral hernia #Umbillical hernia -hCG negative -Clear liquid diet -Zofran IV as needed, morphine IV as needed -CT abdomen pelvis demonstrates ventral and umbilical hernia -Ultrasound abdomen gallbladder stones -Dr. Jalloh consulted for cholecystectomy, will take to OR tomorrow. - RCRI: 1pt, Class II risk, 6% 30 day risk ,mi,cardiac arrest. Ordered ECHO to characterize cardiac function per surgical request -regular diet - s/p cholecystectomy on 09/22. - PT consultation, monitor for BM and symptomology after resuming diet. #Hypertensive emergency #Essential HTN -Blood pressure elevated 207/109 on bedside monitor -IV hydralazine and IV labetalol as needed -Started on Norvasc 10 mg p.o. daily -Started on hydralazine 100 mg p.o. 3 times daily #Type 2 Diabetes with Hyperglycemia - hemoglobin A1c: unclear, ordered - home regimen: Metformin however noncompliant - current regimen: Moderate SSI - blood glucose goal 140-180 while inpatient - continue to monitor #Medication noncompliance # Nicotine Abuse. #THC abuse -Occasional cigarette use - behavioral health counseling administered which included education on benefits of smoking cessation as well as options for quitting. +15 min. #Morbid Obesity - BMI 47 - Counseled patient on the importance of weight loss, incorporating exercise, and dietary changes (lean meats, fresh fruits and vegetables, and water intake). Patient expresses understanding. - Time: +15 min #Advance care planning Disease education conducted, care plan discussed, diagnoses discussed, prognosis discussed, patient is full code, patient acknowledges understanding and agree with care plan, discussed about patient clinical course and answered all questions to satisfaction. +30 minutes. +30 minutes. Total Time Spent with Patient (Minutes): 45 History Interval history: Patient complaining of pain at umbillicus especially with ambulation and transferring weight from laying to standing. Patient states that she was not mobilized yesterday by care team as instructed. Hospitalist Physical - Physical exam Narrative exam: Physical Exam: VITAL SIGNS: Reviewed. GENERAL: The patient appears normally developed, Vital signs as documented. Obese HEAD: No signs of head trauma. EYES: Pupils are equal. Extraocular motions intact. EARS: Hearing grossly intact. MOUTH: Oropharynx is normal. NECK: No adenopathy, no JVD. CHEST: Chest with clear breath sounds bilaterally. No wheezes, rales, or rhonchi. CARDIAC: Regular rate and rhythm. S1 and S2, without murmurs, gallops, or rubs. VASCULAR: No Edema. Peripheral pulses normal and equal in all extremities. ABDOMEN: Post operative tenderness at surgical sites, umbillical pain. Bowel Sounds normal. MUSCULOSKELETAL: Good range of motion of all major joints. Extremities without clubbing, cyanosis or edema. NEUROLOGIC EXAM: Alert and oriented x 4. no focal sensory or strength deficits. PSYCHIATRIC: Mood normal. SKIN: detail exam as documented in skin assessment - Constitutional Vitals: Temp Pulse Resp BP Pulse Ox 99.0 F 107 H 16 158/77 99 09/24/21 04:38 09/24/21 04:38 09/24/21 05:28 09/24/21 04:38 09/24/21 05:28 HEART Score - HEART Score Troponin: Troponin T < 0.010 ng/mL (0.00-0.029) 09/21/21 02:01 Results - Labs CBC & Chem 7: 09/22/21 02:39 09/23/21 10:43 Labs: Laboratory Last Values WBC 11.3 K/mm3 (4.5-11.0) H 09/22/21 02:39 RBC 3.74 M/mm3 (3.65-5.03) 09/22/21 02:39 Hgb 11.5 gm/dl (10.1-14.3) 09/22/21 02:39 Hct 34.6 % (30.3-42.9) 09/22/21 02:39 MCV 93 fl (79-97) 09/22/21 02:39 MCH 31 pg (28-32) 09/22/21 02:39 MCHC 33 % (30-34) 09/22/21 02:39 RDW 13.2 % (13.2-15.2) 09/22/21 02:39 Plt Count 341 K/mm3 (140-440) 09/22/21 02:39 Lymph % (Auto) 19.0 % (13.4-35.0) 09/22/21 02:39 [place] % (Auto) 4.9 % (0.0-7.3) 09/22/21 02:39 Eos % (Auto) 1.1 % (0.0-4.3) 09/22/21 02:39 Baso % (Auto) 1.8 % (0.0-1.8) 09/22/21 02:39 Lymph # (Auto) 2.2 K/mm3 (1.2-5.4) 09/22/21 02:39 [place] # (Auto) 0.6 K/mm3 (0.0-0.8) 09/22/21 02:39 Eos # (Auto) 0.1 K/mm3 (0.0-0.4) 09/22/21 02:39 Baso # (Auto) 0.2 K/mm3 (0.0-0.1) H 09/22/21 02:39 Seg Neutrophils % 73.2 % (40.0-70.0) H 09/22/21 02:39 Seg Neutrophils # 8.3 K/mm3 (1.8-7.7) H 09/22/21 02:39 Sodium 137 mmol/L (137-145) 09/23/21 10:43 Potassium 4.3 mmol/L (3.6-5.0) 09/23/21 10:43 Chloride 102.5 mmol/L (98-107) 09/23/21 10:43 Carbon Dioxide 22 mmol/L (22-30) 09/23/21 10:43 Anion Gap 17 mmol/L 09/23/21 10:43 BUN 20 mg/dL (7-17) H 09/23/21 10:43 Creatinine 1.1 mg/dL (0.6-1.2) 09/23/21 10:43 Estimated GFR > 60 ml/min 09/23/21 10:43 BUN/Creatinine Ratio 18 % 09/23/21 10:43 Glucose 252 mg/dL (65-100) H 09/23/21 10:43 POC Glucose 223 mg/dL (70-105) H 09/24/21 11:02 Calcium 8.8 mg/dL (8.4-10.2) 09/23/21 10:43 Total Bilirubin 0.40 mg/dL (0.1-1.2) 09/23/21 10:43 AST 34 units/L (5-40) 09/23/21 10:43 ALT 22 units/L (7-56) 09/23/21 10:43 Alkaline Phosphatase 76 units/L (35-129) 09/23/21 10:43 Troponin T < 0.010 ng/mL (0.00-0.029) 09/21/21 02:01 Total Protein 6.6 g/dL (6.3-8.2) 09/23/21 10:43 Albumin 3.4 g/dL (3.9-5) L 09/23/21 10:43 Albumin/Globulin Ratio 1.1 % 09/23/21 10:43 Lipase 95 units/L (13-60) H 09/21/21 02:01 HCG, Qual Negative (Negative) 09/21/21 02:57 Urine HCG, Qual Negative (Negative) 09/21/21 09:00 Urine Opiates Screen Negative 09/21/21 04:20 Urine Methadone Screen Negative 09/21/21 04:20 Ur Barbiturates Screen Negative 09/21/21 04:20 Ur Phencyclidine Scrn Negative 09/21/21 04:20 Ur Amphetamines Screen Negative 09/21/21 04:20 U Benzodiazepines Scrn Negative 09/21/21 04:20 Urine Cocaine Screen Negative 09/21/21 04:20 U Marijuana (THC) Screen Positive 09/21/21 04:20 Drugs of Abuse Note Disclamer 09/21/21 04:20 Olivarez/IV: Voiding Method External Female Catheter Active Medications - Current Medications Current Medications: Generic Name Dose Route Start Last Admin Trade Name Freq PRN Reason Stop Dose Admin Acetaminophen 650 mg 09/21/21 08:56 09/22/21 07:55 Acetaminophen 325 Mg Tab PO 650 mg Q4H PRN Administration Pain MILD(1-3)/Fever >100.5/ROGERS Amlodipine Besylate 10 mg 09/21/21 15:00 09/23/21 09:38 Amlodipine 10 Mg Tab PO 10 mg QDAY KARYN Administration Dextrose 50 ml 09/21/21 08:58 Dextrose 50% In Water (25gm) 50 Ml Syringe IV Q30MIN PRN Hypoglycemia Protocol Hydralazine HCl 10 mg 09/21/21 09:01 09/21/21 09:59 Hydralazine 20 Mg/1 Ml Inj IV 10 mg Q4HR PRN Administration sbp>160 Hydralazine HCl 100 mg 09/21/21 15:00 09/23/21 20:42 Hydralazine 100 Mg Tab PO 100 mg TID KARYN Administration Lactated Ringer's 1,000 mls @ 125 mls/hr 09/22/21 15:00 09/23/21 05:07 Lactated Ringers IV 125 mls/hr DIRECT KARYN Administration Insulin Human Lispro 0 unit 09/21/21 11:30 09/23/21 22:31 Insulin Lispro 100 Unit/Ml SUB-Q 4 unit ACHS KARYN Administration Protocol Labetalol HCl 10 mg 09/22/21 19:43 09/22/21 19:59 Labetalol 20 Mg/4 Ml Inj IV 10 mg Q4HR PRN Administration sbp>160 Magnesium Oxide 400 mg 09/22/21 15:00 09/23/21 09:38 Magnesium Oxide 400 Mg Tab PO 400 mg QDAY KARYN Administration Morphine Sulfate 2 mg 09/21/21 08:56 09/24/21 09:09 Morphine 2 Mg/1 Ml Inj IV 2 mg Q4H PRN Administration Pain, Moderate (4-6) Ondansetron HCl 4 mg 09/21/21 08:56 09/21/21 20:22 Ondansetron 4 Mg/2 Ml Inj IV 4 mg Q8H PRN Administration Nausea And Vomiting Sodium Chloride 10 ml 09/21/21 10:00 09/23/21 22:35 Sodium Chloride 0.9% 10 Ml Flush Syringe IV 10 ml BID KARYN Administration Sodium Chloride 10 ml 09/21/21 08:56 Sodium Chloride 0.9% 10 Ml Flush Syringe IV PRN PRN LINE FLUSH Nutrition/Malnutrition Assess - Dietary Evaluation Nutrition/Malnutrition Findings: Nutrition Notes Start: 09/23/21 14:43 Freq: Status: Active Protocol: Document 09/23/21 14:43 RS (Rec: 09/23/21 15:06 RS [id number]) Nutrition Notes Need for Assessment generated from: MD Order Initial or Follow up Assessment Current Diagnosis Diabetes,Hypertension Other Pertinent Diagnosis Cholelithiasis s/p cholecystecomy, morbid obesity , HPV, nicotine/THC abuse Current Diet Cardiac/Consistent CHO Labs/Tests BUN: 20 Glu:252 Pertinent Medications Lactated Ringers at 125mL/hr Height 5 ft 6 in Weight 131.9 kg [place] Body Weight (kg) 59.09 BMI 46.9 Weight change and time frame HUGH wt hx AdBW: 95.5kg Weight Status Morbidly Obese Subjective/Other Information base ply hand for new DM.Pt drowsy, diet education innapropriate at this time. HUGH to assess pt at this time. Per RN report pt only consuming 25% of meals. Will provide ONS BID to help meet protein needs. Percent of energy/protein needs met: 21%kcal/22% PRO Burn Absent Trauma Absent GI Symptoms None Current % PO Poor (25-49%) Minimum of two criteria No physical signs of malnutrition #1 Nutrition Diagnosis Inadequate oral intake Etiology s/p cholecystecomy As Evidenced by Signs and Symptoms pt only consuming 25% of meal trays Is patient on ventilator? No Is Patient Ambulatory and/or Out of Bed No REE-([facility]-confined to bed) 2312.030 Calculation Used for Recommendations [facility] Additional Notes Pro needs: 96-115g/day (1-1.2g /kg AdBW/day) Fluid needs: 1mL/kcal Nutrition Intervention Change Diet Order: Continue Cardiac/Consistent CHO Kcal 440 Protein (gm) 20 Add Supplement/Snack (indicate name/kcal Glucerna Vanilla BID /protein ) Goal #1 Pt will meet at least 75% of kcal/PRO needs via PO intake/ ONS Anticipated Discharge Needs: Cardiac/Consistent CHO Follow-Up By: 09/25/21 Additional Comments F/U intakes, appetite changes, ONS tolerance, improvement in drowsiness for possible diet education
[2021-09-24] MEDS: amLODIPine 10 MG TAB PO SCH (12:06)
[2021-09-24] MEDS ORDERED: oxyCODONE /ACETAMINOPHEN 5-325MG TAB PO PRN (14:30)
[2021-09-24] MEDS: ONDANSETRON 4 MG/2 ML INJ IV PRN (15:07)
[2021-09-24] MEDS ORDERED: INSULIN GLARGINE 100 UNITS/ML SUB-Q SCH (22:00)
[2021-09-25] MEDS: ACETAMINOPHEN 325 MG TAB PO PRN ×2 (04:17→09:47)
--- NOTE | 2021-09-25 08:14 | Progress Note ---
Assessment and Plan Assessment and plan: HPI: 46yo F with pmhx Morbid obesity, HTN, DM2, HPV presenting to our facility for evaluation for worsening 10 out of 10 abdominal pain of 4 to 5-day duration. Patient was seen in the emergency department 2 weeks ago for similar problems and was told that she had gallbladder issues as well as a hernia. At the time the patient was discharged and told to follow-up outpatient. Patient symptomology has worsened since then. She states that she has severe nausea and vomiting and she is unable to eat food without severe biliary colic. She states that she has had diarrhea associated with the symptoms. She denied any hematemesis, melena, hematochezia. Remainder of ROS negative except for stated above Hospital Course: 09/22: Blood pressure optimized. NPO. OR today with Dr. Jalloh for roman. 09/23: c/o abd pain after eating. encouraged to ambulate in hallways. PT consult ordered. Plan for discharge tomorrow AM. 09/24: Tolerating diet well, no complaints of nausea/vomiting however does note some abdominal pain. patient only passing flatus, no bm yet. She was not mobilized yesterday. It is imperative that the patient is ambulated and remains active post op as this will aid in recovery. PT assessment pending. Patient is concerned about returning home. Will continue to work towards safe discharge, possibly tomorrow or Saturday. CM consulted for assistance with D/c planning. 09/25: Experienced dizziness yesterday with oxycodone admin. D/w off may. Ambulated over night however in some pain this AM. Awaiting PT final recommendations, plan for discharge if no needs. DME: rolling walker. D/w CM in rounds this AM. Would recommend current anti-HTN regimen (norvasc, hydralazine) and diabetic regimen with metformin and SGLT2 inhibitor on discharge. Assessment and Plan: #Biliary colic #Abdominal pain #Cholelithiasis s/p cholecystectomy #Abdominal pain #Ventral hernia #Umbillical hernia -hCG negative -Clear liquid diet -Zofran IV as needed, morphine IV as needed -CT abdomen pelvis demonstrates ventral and umbilical hernia -Ultrasound abdomen gallbladder stones -Dr. Jalloh consulted for cholecystectomy, will take to OR tomorrow. - RCRI: 1pt, Class II risk, 6% 30 day risk ,mi,cardiac arrest. Ordered ECHO to characterize cardiac function per surgical request -regular diet - s/p cholecystectomy on 09/22. - PT consultation, monitor for BM and symptomology after resuming diet. #Hypertensive emergency #Essential HTN -Blood pressure elevated 207/109 on bedside monitor -IV hydralazine and IV labetalol as needed -Started on Norvasc 10 mg p.o. daily -Started on hydralazine 100 mg p.o. 3 times daily #Type 2 Diabetes with Hyperglycemia - hemoglobin A1c: unclear, ordered - home regimen: Metformin however noncompliant - current regimen: Moderate SSI - blood glucose goal 140-180 while inpatient - continue to monitor #Medication noncompliance # Nicotine Abuse. #THC abuse -Occasional cigarette use - behavioral health counseling administered which included education on benefits of smoking cessation as well as options for quitting. +15 min. #Morbid Obesity - BMI 47 - Counseled patient on the importance of weight loss, incorporating exercise, and dietary changes (lean meats, fresh fruits and vegetables, and water intake). Patient expresses understanding. - Time: +15 min #Advance care planning Disease education conducted, care plan discussed, diagnoses discussed, prognosis discussed, patient is full code, patient acknowledges understanding and agree with care plan, discussed about patient clinical course and answered all questions to satisfaction. +30 minutes. +30 minutes. History Interval history: No acute complaints this AM. Patient had transient dizziness after percocet admin. I discussed d/c of medication. stated she walked in room overnight and we discussed the need for PT re-eval Hospitalist Physical - Physical exam Narrative exam: Physical Exam: VITAL SIGNS: Reviewed. GENERAL: The patient appears normally developed, Vital signs as documented. Obese HEAD: No signs of head trauma. EYES: Pupils are equal. Extraocular motions intact. EARS: Hearing grossly intact. MOUTH: Oropharynx is normal. NECK: No adenopathy, no JVD. CHEST: Chest with clear breath sounds bilaterally. No wheezes, rales, or rhonchi. CARDIAC: Regular rate and rhythm. S1 and S2, without murmurs, gallops, or ru bs. VASCULAR: No Edema. Peripheral pulses normal and equal in all extremities. ABDOMEN: Post operative tenderness at surgical sites, umbillical pain. Bowel Sounds normal. MUSCULOSKELETAL: Good range of motion of all major joints. Extremities without clubbing, cyanosis or edema. NEUROLOGIC EXAM: Alert and oriented x 4. no focal sensory or strength deficits. PSYCHIATRIC: Mood normal. SKIN: detail exam as documented in skin assessment - Constitutional Vitals: Temp Pulse Resp BP Pulse Ox 99.0 F 107 H 16 158/77 100 09/24/21 04:38 09/24/21 04:38 09/24/21 05:28 09/24/21 04:38 09/25/21 05:00 HEART Score - HEART Score Troponin: Troponin T < 0.010 ng/mL (0.00-0.029) 09/21/21 02:01 Results - Labs CBC & Chem 7: 09/22/21 02:39 09/23/21 10:43 Labs: Laboratory Last Values WBC 11.3 K/mm3 (4.5-11.0) H 09/22/21 02:39 RBC 3.74 M/mm3 (3.65-5.03) 09/22/21 02:39 Hgb 11.5 gm/dl (10.1-14.3) 09/22/21 02:39 Hct 34.6 % (30.3-42.9) 09/22/21 02:39 MCV 93 fl (79-97) 09/22/21 02:39 MCH 31 pg (28-32) 09/22/21 02:39 MCHC 33 % (30-34) 09/22/21 02:39 RDW 13.2 % (13.2-15.2) 09/22/21 02:39 Plt Count 341 K/mm3 (140-440) 09/22/21 02:39 Lymph % (Auto) 19.0 % (13.4-35.0) 09/22/21 02:39 Coles % (Auto) 4.9 % (0.0-7.3) 09/22/21 02:39 Eos % (Auto) 1.1 % (0.0-4.3) 09/22/21 02:39 Baso % (Auto) 1.8 % (0.0-1.8) 09/22/21 02:39 Lymph # (Auto) 2.2 K/mm3 (1.2-5.4) 09/22/21 02:39 Coles # (Auto) 0.6 K/mm3 (0.0-0.8) 09/22/21 02:39 Eos # (Auto) 0.1 K/mm3 (0.0-0.4) 09/22/21 02:39 Baso # (Auto) 0.2 K/mm3 (0.0-0.1) H 09/22/21 02:39 Seg Neutrophils % 73.2 % (40.0-70.0) H 09/22/21 02:39 Seg Neutrophils # 8.3 K/mm3 (1.8-7.7) H 09/22/21 02:39 Sodium 137 mmol/L (137-145) 09/23/21 10:43 Potassium 4.3 mmol/L (3.6-5.0) 09/23/21 10:43 Chloride 102.5 mmol/L (98-107) 09/23/21 10:43 Carbon Dioxide 22 mmol/L (22-30) 09/23/21 10:43 Anion Gap 17 mmol/L 09/23/21 10:43 BUN 20 mg/dL (7-17) H 09/23/21 10:43 Creatinine 1.1 mg/dL (0.6-1.2) 09/23/21 10:43 Estimated GFR > 60 ml/min 09/23/21 10:43 BUN/Creatinine Ratio 18 % 09/23/21 10:43 Glucose 252 mg/dL (65-100) H 09/23/21 10:43 POC Glucose 222 mg/dL (70-105) H 09/24/21 21:46 Calcium 8.8 mg/dL (8.4-10.2) 09/23/21 10:43 Total Bilirubin 0.40 mg/dL (0.1-1.2) 09/23/21 10:43 AST 34 units/L (5-40) 09/23/21 10:43 ALT 22 units/L (7-56) 09/23/21 10:43 Alkaline Phosphatase 76 units/L (35-129) 09/23/21 10:43 Troponin T < 0.010 ng/mL (0.00-0.029) 09/21/21 02:01 Total Protein 6.6 g/dL (6.3-8.2) 09/23/21 10:43 Albumin 3.4 g/dL (3.9-5) L 09/23/21 10:43 Albumin/Globulin Ratio 1.1 % 09/23/21 10:43 Lipase 95 units/L (13-60) H 09/21/21 02:01 HCG, Qual Negative (Negative) 09/21/21 02:57 Urine HCG, Qual Negative (Negative) 09/21/21 09:00 Urine Opiates Screen Negative 09/21/21 04:20 Urine Methadone Screen Negative 09/21/21 04:20 Ur Barbiturates Screen Negative 09/21/21 04:20 Ur Phencyclidine Scrn Negative 09/21/21 04:20 Ur Amphetamines Screen Negative 09/21/21 04:20 U Benzodiazepines Scrn Negative 09/21/21 04:20 Urine Cocaine Screen Negative 09/21/21 04:20 U Marijuana (THC) Screen Positive 09/21/21 04:20 Drugs of Abuse Note Disclamer 09/21/21 04:20 Olivarez/IV: Voiding Method Toilet Active Medications - Current Medications Current Medications: Generic Name Dose Route Start Last Admin Trade Name Freq PRN Reason Stop Dose Admin Acetaminophen 650 mg 09/21/21 08:56 09/25/21 04:17 Acetaminophen 325 Mg Tab PO 650 mg Q4H PRN Administration Pain MILD(1-3)/Fever >100.5/ROGERS Amlodipine Besylate 10 mg 09/21/21 15:00 09/24/21 12:06 Amlodipine 10 Mg Tab PO 10 mg QDAY KARYN Administration Dextrose 50 ml 09/21/21 08:58 Dextrose 50% In Water (25gm) 50 Ml Syringe IV Q30MIN PRN Hypoglycemia Protocol Hydralazine HCl 10 mg 09/21/21 09:01 09/21/21 09:59 Hydralazine 20 Mg/1 Ml Inj IV 10 mg Q4HR PRN Administration sbp>160 Hydralazine HCl 100 mg 09/21/21 15:00 09/24/21 22:02 Hydralazine 100 Mg Tab PO 100 mg TID KARYN Administration Lactated Ringer's 1,000 mls @ 125 mls/hr 09/22/21 15:00 09/23/21 05:07 Lactated Ringers IV 125 mls/hr DIRECT KARYN Administration Insulin Glargine 20 units 09/25/21 09:00 Insulin Glargine 100 Units/Ml SUB-Q BID KARYN Insulin Human Lispro 0 unit 09/21/21 11:30 09/24/21 22:49 Insulin Lispro 100 Unit/Ml SUB-Q 3 unit ACHS KARYN Administration Protocol Labetalol HCl 10 mg 09/22/21 19:43 09/22/21 19:59 Labetalol 20 Mg/4 Ml Inj IV 10 mg Q4HR PRN Administration sbp>160 Magnesium Oxide 400 mg 09/22/21 15:00 09/24/21 11:07 Magnesium Oxide 400 Mg Tab PO 400 mg QDAY KARYN Administration Morphine Sulfate 2 mg 09/21/21 08:56 09/24/21 09:09 Morphine 2 Mg/1 Ml Inj IV 2 mg Q4H PRN Administration Pain, Moderate (4-6) Ondansetron HCl 4 mg 09/21/21 08:56 09/24/21 15:07 Ondansetron 4 Mg/2 Ml Inj IV 4 mg Q8H PRN Administration Nausea And Vomiting Oxycodone/Acetaminophen 1 tab 09/24/21 14:30 09/24/21 15:02 Oxycodone /Acetaminophen 5-325mg Tab PO 1 tab Q6H PRN Administration Pain, Moderate (4-6) Sodium Chloride 10 ml 09/21/21 10:00 09/24/21 22:20 Sodium Chloride 0.9% 10 Ml Flush Syringe IV 10 ml BID KARYN Administration Sodium Chloride 10 ml 09/21/21 08:56 Sodium Chloride 0.9% 10 Ml Flush Syringe IV PRN PRN LINE FLUSH Nutrition/Malnutrition Assess - Dietary Evaluation Nutrition/Malnutrition Findings: Nutrition Notes Start: 09/23/21 14:43 Freq: Status: Active Protocol: Document 09/23/21 14:43 RS (Rec: 09/23/21 15:06 RS [email or web address]) Nutrition Notes Need for Assessment generated from: MD Order Initial or Follow up Assessment Current Diagnosis Diabetes,Hypertension Other Pertinent Diagnosis Cholelithiasis s/p cholecystecomy, morbid obesity , HPV, nicotine/THC abuse Current Diet Cardiac/Consistent CHO Labs/Tests BUN: 20 Glu:252 Pertinent Medications Lactated Ringers at 125mL/hr Height 5 ft 6 in Weight 131.9 kg [place] Body Weight (kg) 59.09 BMI 46.9 Weight change and time frame HUGH wt hx AdBW: 95.5kg Weight Status Morbidly Obese Subjective/Other Information podopediatrician for new DM.Pt drowsy, diet education innapropriate at this time. HUGH to assess pt at this time. Per RN report pt only consuming 25% of meals. Will provide ONS BID to help meet protein needs. Percent of energy/protein needs met: 21%kcal/22% PRO Burn Absent Trauma Absent GI Symptoms None Current % PO Poor (25-49%) Minimum of two criteria No physical signs of malnutrition #1 Nutrition Diagnosis Inadequate oral intake Etiology s/p cholecystecomy As Evidenced by Signs and Symptoms pt only consuming 25% of meal trays Is patient on ventilator? No Is Patient Ambulatory and/or Out of Bed No REE-([facility]-confined to bed) 8845.371 Calculation Used for Recommendations [facility] Additional Notes Pro needs: 96-115g/day (1-1.2g /kg AdBW/day) Fluid needs: 1mL/kcal Nutrition Intervention Change Diet Order: Continue Cardiac/Consistent CHO Kcal 440 Protein (gm) 20 Add Supplement/Snack (indicate name/kcal Glucerna Vanilla BID /protein ) Goal #1 Pt will meet at least 75% of kcal/PRO needs via PO intake/ ONS Anticipated Discharge Needs: Cardiac/Consistent CHO Follow-Up By: 09/25/21 Additional Comments F/U intakes, appetite changes, ONS tolerance, improvement in drowsiness for possible diet education
[2021-09-25] MEDS: INSULIN LISPRO 100 UNIT/ML SUB-Q SCH ×3 (08:56→22:00)
[2021-09-25] MEDS: hydrALAZINE 100 MG TAB PO SCH ×3 (09:18→22:00)
[2021-09-25] MEDS: amLODIPine 10 MG TAB PO SCH (09:19)
[2021-09-25] MEDS: MAGNESIUM OXIDE 400 MG TAB PO SCH (09:19)
[2021-09-25] MEDS: MORPHINE 2 MG/1 ML INJ IV PRN (09:29)
[2021-09-25] MEDS: INSULIN GLARGINE 100 UNITS/ML SUB-Q SCH ×2 (09:51→23:00)
--- NOTE | 2021-09-25 10:27 | Progress Note ---
Assessment and Plan Patient with symptomatic gallstones and with a umbilical hernia that is with incarcerated omentum. Patient status post cholecystectomy and reduction of omental incarceration and open umbilical hernia with repair of the umbilical hernia on 09/22/2021. She notes some incisional pain. She is hungry. Patient is moving around better today okay to discharge patient follow-up with me in 1 week. Please give patient pain medications at discharge. Subjective Date of service: 09/25/21 Patient Reports: Positive: feels better, still having pain Narrative: Patient is moving around better today okay to discharge patient follow-up with me in 1 week. Please give patient pain medications at discharge. Objective Vital Signs - 12hr 09/25/21 09/25/21 05:00 10:01 O2 Sat by Pulse 100 100 Oximetry - Labs 09/22/21 02:39 09/23/21 10:43
[2021-09-25] MEDS ORDERED: ONDANSETRON 4 MG ODT TAB PO STA (14:18)
[2021-09-26] MEDS: ACETAMINOPHEN 325 MG TAB PO PRN ×2 (02:38→09:52)
[2021-09-26 06:48] VITALS: BP 175/85
[2021-09-26] MEDS: hydrALAZINE 100 MG TAB PO SCH (08:07)
[2021-09-26] MEDS: INSULIN LISPRO 100 UNIT/ML SUB-Q SCH ×3 (08:11→12:39)
--- NOTE | 2021-09-26 09:20 | Discharge Summary ---
Providers - Providers Date of Admission: 09/21/21 08:57 Date of discharge: 09/26/21 Attending physician: TONIE KERR 09/21/21 08:55 Consult to Physician [CONS] Routine Comment: Consulting Provider: LELAND JALLOH Physician Instructions: Reason For Exam: hernia, biliary colic 09/23/21 12:46 Physical Therapy Evaluation and Treat [CONS] Routine Comment: Reason For Exam: ambulate 09/24/21 12:04 Consult to Case Management [CONS] Routine Services Needed at Discharge: Other Notified:: CM Comment:: discharge planning Primary care physician: MANAGER OF CASE MANAGEMENT Hospitalization Reason for admission: abd pain Condition: Stable Hospital course: 46yo F with pmhx Morbid obesity, HTN, DM2, HPV presenting to our facility for evaluation for worsening 10 out of 10 abdominal pain of 4 to 5-day duration. Patient was seen in the emergency department 2 weeks ago for similar problems and was told that she had gallbladder issues as well as a hernia. At the time the patient was discharged and told to follow-up outpatient. Patient symptomology has worsened since then. She states that she has severe nausea and vomiting and she is unable to eat food without severe biliary colic. She states that she has had diarrhea associated with the symptoms. She denied any hematemesis, melena, hematochezia. Remainder of ROS negative except for stated above. The patient was admitted with diagnosis of biliary colic, abdominal pain, cholelithiasis, ventral hernia, hypertensive emergency, diabetes mellitus type 2 uncontrolled, medical noncompliance, nicotine abuse, THC abuse, morbid obesity. Discharge diagnosis same with the addition of s/p cholecystectomy and umbilical hernia repair completed on 09/22/2021. Hospital Course: 09/22: Blood pressure optimized. NPO. OR today with Dr. Jalloh for roman. 09/23: c/o abd pain after eating. encouraged to ambulate in hallways. PT consult ordered. Plan for discharge tomorrow AM. 09/24: Tolerating diet well, no complaints of nausea/vomiting however does note some abdominal pain. patient only passing flatus, no bm yet. She was not mobil ized yesterday. It is imperative that the patient is ambulated and remains active post op as this will aid in recovery. PT assessment pending. Patient is concerned about returning home. Will continue to work towards safe discharge, possibly tomorrow or Saturday. CM consulted for assistance with D/c planning. 09/25: Experienced dizziness yesterday with oxycodone admin. D/w off may. Ambulated over night however in some pain this AM. Awaiting PT final recommendations, plan for discharge if no needs. DME: rolling walker. D/w CM in rounds this AM. Would recommend current anti-HTN regimen (norvasc, hydralazine) and diabetic regimen with metformin and SGLT2 inhibitor on discharge. 09/26: Patient will be discharged home with medications noted above Disposition: 01 HOME / SELF CARE / HOMELESS Final Discharge Diagnosis (Prints w/discharge instructions): biliary colic, abdominal pain, cholelithiasis, ventral hernia, hypertensive emergency, diabetes mellitus type 2 uncontrolled, medical noncompliance, nicotine abuse, THC abuse, morbid obesity, s/p cholecystectomy and umbilical hernia repair Core Measure Documentation - Palliative Care Palliative Care/ Comfort Measures: Not Applicable - Core Measures Any of the following diagnoses?: none Exam - Constitutional Vitals: Temp Pulse Resp BP Pulse Ox 99.1 F 96 H 18 175/85 99 09/26/21 06:47 09/26/21 06:47 09/26/21 06:47 09/26/21 06:47 09/26/21 06:47 General appearance: Present: no acute distress, well-nourished - EENT Eyes: Present: PERRL ENT: hearing intact, clear oral mucosa - Neck Neck: Present: supple, normal ROM - Respiratory Respiratory effort: normal Respiratory: bilateral: CTA - Cardiovascular Heart Sounds: Present: S1 & S2. Absent: rub, click - Extremities Extremities: pulses symmetrical, No edema Peripheral Pulses: within normal limits - Abdominal General gastrointestinal: Present: soft, non-tender, non-distended, normal bowel sounds Female genitourinary: Present: normal - Integumentary Integumentary: Present: clear, warm, dry - Musculoskeletal Musculoskeletal: gait normal, strength equal bilaterally - Psychiatric Psychiatric: appropriate mood/affect, intact judgment & insight - Neurologic Neurologic: CNII-XII intact, moves all extremities Plan Activity: advance as tolerated Weight Bearing Status: Weight Bear as Tolerated Diet: regular Follow up with: PRIMARY CARE, [Primary Care Provider] - 3-5 Days Prescriptions: amLODIPine 10 mg PO QDAY #30 tablet hydrALAZINE [Apresoline TAB] 100 mg PO TID #90 tab Ferrous Sulfate [Feosol 325 MG tab] 325 mg PO BID 30 Days #60 tablet hydroCHLOROthiazide [HCTZ] 25 mg PO QDAY #30 tablet metFORMIN 500 mg PO DAILY #30 Omeprazole 20 mg PO DAILY #30 traMADoL [Ultram 50 MG tab] 50 mg PO Q6HR PRN #8 tablet PRN Reason: Pain lisinopriL [Zestril TAB] 40 mg PO QDAY #30 tablet
[2021-09-26] MEDS: INSULIN GLARGINE 100 UNITS/ML SUB-Q SCH (09:48)
[2021-09-26] MEDS: amLODIPine 10 MG TAB PO SCH (09:48)
== END 2021-09-26 12:40 | disposition home or self-care (01) | DRG 418 ==
LOC: ED 17:23 → 3A 09-21 08:57
PROVIDERS: ADMIT Internal Medicine; ATTEND Hospitalist
PROC: 0FT44ZZ Resection of Gallbladder, Percutaneous Endoscopic Approach (ICD-10-PCS; principal; 2021-09-22)
PROC: 0WQF0ZZ Repair Abdominal Wall, Open Approach (ICD-10-PCS; 2021-09-22)
DX: K80.70 Calculus of gallbladder and bile duct without cholecystitis without obstruction (principal); I16.1 Hypertensive emergency; Z68.42 Body mass index [BMI] 45.0-49.9, adult; I10 Essential (primary) hypertension; F17.200 Nicotine dependence, unspecified, uncomplicated; E66.01 Morbid (severe) obesity due to excess calories; E11.65 Type 2 diabetes mellitus with hyperglycemia; Z91.19 Patient's noncompliance with other medical treatment and regimen; Z71.3 Dietary counseling and surveillance; K46.9 Unspecified abdominal hernia without obstruction or gangrene; K43.9 Ventral hernia without obstruction or gangrene; F41.9 Anxiety disorder, unspecified; K66.0 Peritoneal adhesions (postprocedural) (postinfection); Z91.012 Allergy to eggs; Z79.899 Other long term (current) drug therapy; Z91.040 Latex allergy status; Z88.0 Allergy status to penicillin; Z79.4 Long term (current) use of insulin
CPT/HCPCS: 36415; 74177; 76705; 80053; 80307; 81025; 82962; 83690; 84484; 84703; 85025; 88304; 93306; G0378; J3490; Q9967; C8929; J0360; J1170; J1815; J1885; J2250; J2270; J2405; J2704; J3010; J7030; J7120; Q0162